=== PATIENT | male | born 1950 | race Caucasian/White ===

== ENCOUNTER 2017-09-16 21:48 | Emergency (ER) | payer MEDICARE, MEDICAID ==
[~2017-09-16] VITALS: Ht 167.6 cm; Wt 76.2 kg
[~2017-09-16 21:48] MED LIST: ARIP5TAB20 PO; ATOR40TA71 PO; BUSP10TA11 PO; CLOP75TA15 PO; DOCU100C40 PO; FAMO20TA8 PO; FLUT1DIS7 INH; IPRA4AER IH; LISI-600 PO; METF1000 PO; NITR0.4T48 SL; TRAM50TA2 PO; TRAZ-143 PO; UMEC62.5 INH; VENL75CA61 PO
[2017-09-16 21:57] VITALS: BP 178/110
[2017-09-16] MEDS ORDERED: LORazepam 1 MG tablet PO ONE (23:15)
[2017-09-16 23:30] LABS: BASOPHILS # (AUTO) 0.1 X10'3 (0-0.2); BASOPHILS % (AUTO) 0.4 % (0-1); EOSINOPHILS # (AUTO) 0.2 X10'3 (0-0.9); EOSINOPHILS % (AUTO) 1.6 % (0-6); HEMATOCRIT 47.6 % (42.0-52.0); HEMOGLOBIN 16.1 g/dl (14.0-17.9); LYMPHOCYTES # (AUTO) 1.8 X10'3 (1.1-4.8); LYMPHOCYTES % (AUTO) 12.7 % (21-51); MEAN CORPUSCULAR HEMOGLOBIN 30.1 PG (27.0-31.0); MEAN CORPUSCULAR HGB CONC 33.8 % (33.0-36.5); MEAN CORPUSCULAR VOLUME 89.1 FL (78-98); MEAN PLATELET VOLUME 7.8 FL (7.4-10.4); MONOCYTES # (AUTO) 1.4 X10'3 (0-0.9); MONOCYTES % (AUTO) 9.9 % (2-12); NEUTROPHILS # (AUTO) 10.8 X10'3 (1.8-7.7); NEUTROPHILS % (AUTO) 75.4 % (42-75); PLATELET COUNT 350 X10'3 (140-440); RED BLOOD COUNT 5.34 X10'6 (4.70-6.10); RED CELL DISTRIBUTION WIDTH 14.1 % (11.5-14.5); WHITE BLOOD COUNT 14.3 X10'3 (4.5-11.0)
[2017-09-16 23:31] LABS: CLARITY,URINE Clear (Clear); COLOR,URINE Yellow (Yellow); GLUCOSE, URINE Negative (Neg); KETONES,URINE Negative (Neg); LEUKOCYTE ESTERASE ,URINE Trace (Neg); NITRITES, URINE Negative (Neg); OCCULT BLOOD,URINE Negative (Neg); PH,URINE 5.5 (4.8-8.0); PROTEIN,URINE 100 mg/dl (Neg)
[2017-09-16 23:33] LABS: UA COLLECTION TYPE CLN CATCH MIDSTREAM
[2017-09-16 23:44] LABS: BACTERIA,URINE FEW /HPF (Neg); RBC,URINE 0-2 /HPF (0-2); SQUAMOUS EPITHELIAL CELL,UR FEW /LPF (FEW); WBC,URINE 0-4 /HPF (0-4)
[2017-09-16 23:45] LABS: URINE AMPHETAMINE SCREEN POSITIVE (Neg); URINE BARBITUATE SCREEN NEGATIVE (Neg); URINE BENZODIAZEPINES SCREEN NEGATIVE (Neg); URINE CANNABINOID SCREEN POSITIVE (Neg); URINE COCAINE SCREEN NEGATIVE (Neg); URINE METHADONE SCREEN NEGATIVE (Neg); URINE OPIATE SCREEN NEGATIVE (Neg); URINE PHENCYCLIDINE SCREEN NEGATIVE (Neg)
[2017-09-16 23:45] LABS: ALANINE AMINOTRANSFERASE 24 U/L (12-78); ALBUMIN 4.3 G/DL (3.4-5.0); ALKALINE PHOSPHATASE 50 IU/L (46-116); ANION GAP 12 (8-16); ASPARTATE AMINO TRANSFERASE 22 U/L (10-37); BILIRUBIN,TOTAL 0.9 MG/DL (0.1-1.0); BLOOD UREA NITROGEN 12 MG/DL (7-18); CALCIUM 9.9 MG/DL (8.5-10.1); CHLORIDE 101 MMOL/L (99-107); GLUCOSE 138 MG/DL (70-104); POTASSIUM 3.8 MMOL/L (3.5-5.1); SODIUM 139 MMOL/L (135-145); TOTAL CARBON DIOXIDE 25.7 MMOL/L (24-32); TOTAL PROTEIN 8.6 G/DL (6.4-8.2); eGFR 75 ML/MIN
[2017-09-17 00:04] LABS: ACETAMINOPHEN < 2.0 UG/ML (10-30); ETHANOL < 0.010 GM/DL (0.0-0.010)
== END 2017-09-17 03:35 | disposition home or self-care (01) ==
LOC: ER 21:48
DX: F41.9 Anxiety disorder, unspecified (principal); F32.9 Major depressive disorder, single episode, unspecified; E11.42 Type 2 diabetes mellitus with diabetic polyneuropathy; I10 Essential (primary) hypertension; I25.10 Atherosclerotic heart disease of native coronary artery without angina pectoris; E78.00 Pure hypercholesterolemia, unspecified; I25.2 Old myocardial infarction; J44.9 Chronic obstructive pulmonary disease, unspecified; G89.29 Other chronic pain; M19.90 Unspecified osteoarthritis, unspecified site; Z98.61 Coronary angioplasty status; Z90.49 Acquired absence of other specified parts of digestive tract; Z86.14 Personal history of Methicillin resistant Staphylococcus aureus infection; Z60.2 Problems related to living alone; Z88.5 Allergy status to narcotic agent; Z88.0 Allergy status to penicillin; Z88.8 Allergy status to other drugs, medicaments and biological substances; Z79.84 Long term (current) use of oral hypoglycemic drugs; Z79.899 Other long term (current) drug therapy
CPT/HCPCS: 36415; 80053; 80305; 80320; 80329; 81001; 84443; 85025; 99284

== ENCOUNTER 2018-03-08 23:54 | Emergency (ER) | payer MEDICARE, OTHER ==
[~2018-03-08] VITALS: Ht 167.6 cm; Wt 97.3 kg
[~2018-03-08 23:54] MED LIST changes: -TRAZ-143 PO; +TRAZ-218 PO
[2018-03-09 00:55] VITALS: BP 124/101
[2018-03-09 01:03] LABS: BASOPHILS # (AUTO) 0.1 X10'3 (0-0.2); BASOPHILS % (AUTO) 0.9 % (0-1); EOSINOPHILS # (AUTO) 0.2 X10'3 (0-0.9); HEMATOCRIT 46.6 % (42.0-52.0); HEMOGLOBIN 15.7 g/dl (14.0-17.9); LYMPHOCYTES # (AUTO) 1.9 X10'3 (1.1-4.8); LYMPHOCYTES % (AUTO) 19.2 % (21-51); MEAN CORPUSCULAR HEMOGLOBIN 30.4 PG (27.0-31.0); MEAN CORPUSCULAR HGB CONC 33.7 % (33.0-36.5); MEAN CORPUSCULAR VOLUME 90.2 FL (78-98); MONOCYTES # (AUTO) 0.9 X10'3 (0-0.9); MONOCYTES % (AUTO) 9.4 % (2-12); NEUTROPHILS # (AUTO) 6.8 X10'3 (1.8-7.7); NEUTROPHILS % (AUTO) 68.5 % (42-75); PLATELET COUNT 364 X10'3 (140-440); RED BLOOD COUNT 5.17 X10'6 (4.70-6.10); RED CELL DISTRIBUTION WIDTH 12.3 % (11.5-14.5); WHITE BLOOD COUNT 9.9 X10'3 (4.5-11.0)
[2018-03-09 01:12] LABS: ALANINE AMINOTRANSFERASE 20 U/L (12-78); ALBUMIN 3.7 G/DL (3.4-5.0); ALBUMIN/GLOBULIN RATIO 0.9 (1.1-1.5); ALKALINE PHOSPHATASE 49 IU/L (46-116); ANION GAP 10 (8-16); ASPARTATE AMINO TRANSFERASE 13 U/L (10-37); BILIRUBIN,TOTAL 0.6 MG/DL (0.1-1.0); BLOOD UREA NITROGEN 18 MG/DL (7-18); BUN/CREATININE RATIO 19.8 (5.4-32.0); CHLORIDE 99 MMOL/L (99-107); CREATININE 0.91 MG/DL (0.60-1.10); GLUCOSE 213 MG/DL (70-104); POTASSIUM 3.8 MMOL/L (3.5-5.1); SODIUM 135 MMOL/L (135-145); TOTAL CARBON DIOXIDE 25.8 MMOL/L (24-32); TOTAL PROTEIN 7.9 G/DL (6.4-8.2); eGFR 83 ML/MIN
[2018-03-09 01:18] LABS: MAGNESIUM 1.7 MG/DL (1.5-2.4)
[2018-03-09 01:26] LABS: CALCIUM 9.5 MG/DL (8.5-10.1)
== END 2018-03-09 02:18 | disposition home or self-care (01) ==
LOC: ER 23:54
DX: R55 Syncope and collapse (principal); E11.42 Type 2 diabetes mellitus with diabetic polyneuropathy; I25.10 Atherosclerotic heart disease of native coronary artery without angina pectoris; E78.00 Pure hypercholesterolemia, unspecified; I10 Essential (primary) hypertension; I25.2 Old myocardial infarction; J44.9 Chronic obstructive pulmonary disease, unspecified; M19.90 Unspecified osteoarthritis, unspecified site; G89.29 Other chronic pain; Z98.61 Coronary angioplasty status; Z90.49 Acquired absence of other specified parts of digestive tract; Z98.890 Other specified postprocedural states; Z60.2 Problems related to living alone; Z88.0 Allergy status to penicillin; Z88.5 Allergy status to narcotic agent; Z88.8 Allergy status to other drugs, medicaments and biological substances; Z79.01 Long term (current) use of anticoagulants; Z79.899 Other long term (current) drug therapy
CPT/HCPCS: 36415; 71045; 80053; 82948; 83735; 83880; 84484; 85025; 93005; 99285

== ENCOUNTER 2018-12-01 23:57 | Emergency (ER) | payer MEDICAID, OTHER ==
[~2018-12-01] VITALS: Ht 167.6 cm; Wt 90.9 kg
[~2018-12-01 23:57] MED LIST changes: -ARIP5TAB20 PO; +ARIP5TAB60 PO; -TRAZ-218 PO; +TRAZ-251 PO
--- NOTE | 2018-12-02 00:18 | NUR ---
Patient was placed on NIBP and pulse ox and patient's heart rate noted to be in the 150s. Patient relates this to being anxious and in the ER and states, "this has always happened to me since Nam." Patient placed on 5 lead and he is in the 110s sinus tachycardia. Patient resting comfortably in bed with no signs of distress. Denies head, neck, or back pain and only complains of 2 abrasions to his right elbow and right knee.
[2018-12-02 01:51] VITALS: BP 150/98
== END 2018-12-02 01:52 | disposition home or self-care (01) ==
LOC: ER 23:58
DX: S50.311A Abrasion of right elbow, initial encounter (principal); S80.211A Abrasion, right knee, initial encounter; G31.89 Other specified degenerative diseases of nervous system; E11.42 Type 2 diabetes mellitus with diabetic polyneuropathy; I25.10 Atherosclerotic heart disease of native coronary artery without angina pectoris; E78.00 Pure hypercholesterolemia, unspecified; I10 Essential (primary) hypertension; I25.2 Old myocardial infarction; J44.9 Chronic obstructive pulmonary disease, unspecified; M19.90 Unspecified osteoarthritis, unspecified site; G89.29 Other chronic pain; F41.9 Anxiety disorder, unspecified; F32.9 Major depressive disorder, single episode, unspecified; Z86.14 Personal history of Methicillin resistant Staphylococcus aureus infection; Z98.61 Coronary angioplasty status; Z90.49 Acquired absence of other specified parts of digestive tract; Z98.890 Other specified postprocedural states; Z60.2 Problems related to living alone; Z88.0 Allergy status to penicillin; Z88.5 Allergy status to narcotic agent; Z88.8 Allergy status to other drugs, medicaments and biological substances; Z79.899 Other long term (current) drug therapy; W18.49XA Other slipping, tripping and stumbling without falling, initial encounter; Y93.01 Activity, walking, marching and hiking; Y92.89 Other specified places as the place of occurrence of the external cause; Y99.8 Other external cause status
CPT/HCPCS: 70450; 99284

== ENCOUNTER 2018-12-26 13:22 | Inpatient (IN) | payer MEDICARE, MEDICAID ==
[~2018-12-26] VITALS: Ht 167.6 cm; Wt 90.5 kg
[2018-12-26] MEDS ORDERED: normal saline 1000ml 1,000 ML IV ONE (13:46)
[2018-12-26] MEDS ORDERED: aspirin 81mg tab.chew PO ONE (13:50)
--- NOTE | 2018-12-26 13:54 | NUR ---
I ASKED DR PEARSON ABOUT ORDERING A HEAD CT AND HE SAID "NO, WHY WOULD I".
[2018-12-26 14:19] LABS: BASOPHILS % (AUTO) 0.4 % (0-1); EOSINOPHILS % (AUTO) 0.5 % (0-6); HEMATOCRIT 45.8 % (42.0-52.0); HEMOGLOBIN 15.5 g/dl (14.0-17.9); LYMPHOCYTES % (AUTO) 10.2 % (21-51); MEAN CORPUSCULAR HEMOGLOBIN 30.6 PG (27.0-31.0); MEAN CORPUSCULAR HGB CONC 33.8 g/dL (33.0-36.5); MEAN CORPUSCULAR VOLUME 90.4 FL (78-98); MEAN PLATELET VOLUME 7.1 FL (7.4-10.4); MONOCYTES # (AUTO) 0.9 X10'3 (0-0.9); MONOCYTES % (AUTO) 8.8 % (2-12); NEUTROPHILS % (AUTO) 80.1 % (42-75); PLATELET COUNT 306 X10'3 (140-440); RED BLOOD COUNT 5.06 X10'6 (4.70-6.10); RED CELL DISTRIBUTION WIDTH 13.2 % (11.5-14.5)
--- NOTE | 2018-12-26 14:25 | NUR ---
Unable to complete orthostatic vitals as pt became pre-syncopal upon sitting at side of bed. Layed pt back in [facility]. Will inform DAVION.
[2018-12-26 14:39] LABS: ALANINE AMINOTRANSFERASE 19 U/L (12-78); ALBUMIN 3.2 G/DL (3.4-5.0); ALBUMIN/GLOBULIN RATIO 0.7 (1.1-1.5); ALKALINE PHOSPHATASE 78 IU/L (46-116); ANION GAP 12 (8-16); ASPARTATE AMINO TRANSFERASE 12 U/L (10-37); BILIRUBIN,TOTAL 0.5 MG/DL (0.1-1.0); BLOOD UREA NITROGEN 18 MG/DL (7-18); BUN/CREATININE RATIO 19.8 (5.4-32.0); CALCIUM 8.9 MG/DL (8.5-10.1); CHLORIDE 99 MMOL/L (99-107); CREATININE 0.91 MG/DL (0.60-1.10); GLUCOSE 326 MG/DL (70-104); POTASSIUM 4.3 MMOL/L (3.5-5.1); SODIUM 134 MMOL/L (135-145); TOTAL PROTEIN 7.8 G/DL (6.4-8.2); eGFR 83 ML/MIN
[2018-12-26 14:39] LABS: CLARITY,URINE CLEAR (Clear); COLOR,URINE YELLOW (Yellow); GLUCOSE, URINE >=1000 mg/dl (Neg); KETONES,URINE NEGATIVE (Neg); LEUKOCYTE ESTERASE ,URINE NEGATIVE (Neg); NITRITES, URINE NEGATIVE (Neg); OCCULT BLOOD,URINE NEGATIVE (Neg); PH,URINE 6.5 (4.8-8.0); PROTEIN,URINE NEGATIVE (Neg); UROBILINOGEN,URINE 0.2 E.U/dL (0.2-1.0)
[2018-12-26 14:40] LABS: UA COLLECTION TYPE VOIDED
[2018-12-26 14:42] LABS: PARTIAL THROMBOPLASTIN TIME 28 SECONDS (22-32)
[2018-12-26 14:43] LABS: ETHANOL < 0.010 GM/DL (0.0-0.010); MAGNESIUM 1.9 MG/DL (1.5-2.4)
[2018-12-26 14:49] LABS: BACTERIA,URINE NONE SEEN /HPF (Neg); MUCUS STRANDS NONE SEEN /LPF (Neg); RBC,URINE NONE SEEN /HPF (0-2); SQUAMOUS EPITHELIAL CELL,UR NONE SEEN /LPF (FEW); TRANSITIONAL EPI CELLS,URINE FEW /HPF; WBC,URINE 0-4 /HPF (0-4)
--- NOTE | 2018-12-26 14:56 | NUR ---
ECHO IS AT BEDSIDE
[2018-12-26] MEDS ORDERED: HYDROcodone/acetaminophen 10/325mg tab PO ONE (15:00)
[2018-12-26] MEDS ORDERED: morphine 4 MG/ML inj SYRINge IV ONE (15:00)
--- NOTE | 2018-12-26 16:30 | NUR ---
carotid us completed
[2018-12-26] MEDS ORDERED: MULT-933 PO (16:46)
[2018-12-26] MEDS ORDERED: ASPI81TA52 PO (16:46)
[2018-12-26] MEDS ORDERED: CHOL100046 PO (16:46)
[2018-12-26] MEDS ORDERED: RANI-648 PO (16:46)
[2018-12-26] MEDS ORDERED: INSU100V9 SQ (16:46)
[2018-12-26] MEDS ORDERED: SERT100T10 PO (16:46)
[2018-12-26] MEDS ORDERED: FLUT12AE9 IH (16:46)
[2018-12-26] MEDS ORDERED: METF-795 PO (16:48)
[2018-12-26] MEDS ORDERED: traMADol 50MG tablet PO PRN (17:15)
[2018-12-26] MEDS ORDERED: ondansetron/PF 4mg/2ml inj IV PRN (17:20)
[2018-12-26] MEDS ORDERED: magnesium hydroxide 30ml (MOM) UD suspension PO PRN (17:20)
[2018-12-26] MEDS ORDERED: mag hydrox/Alum hydrox/simeth 30ml oral suspension PO PRN (17:20)
[2018-12-26] MEDS ORDERED: acetaminophen 325mg tablet PO PRN ×2 (17:20→21:20)
--- NOTE | 2018-12-26 17:22 | NUR ---
bg 243
[2018-12-26] MEDS: normal saline 1000ml 1,000 ML IV SCH (17:46)
[2018-12-26] MEDS ORDERED: insulin Lispro (HumaLOG) vial - multi-dose SQ ONE (19:15)
--- NOTE | 2018-12-26 19:20 | NUR ---
I have received report from JM Vargas in ED and had the opportunity to ask questions and will assume patient care when pt arrives to unit.
[2018-12-26 19:45] VITALS: BP 173/86
--- NOTE | 2018-12-26 19:45 | NUR ---
Patient arrived to room via gurney from ED. Patient is alert and oriented, VSS
[2018-12-26] MEDS ORDERED: METFORMIN 500 MG PO SCH (20:00)
[2018-12-26 20:20] LABS: HEMOGLOBIN A1C 11.1 % (4.5-6.2)
[2018-12-26] MEDS ORDERED: dextrose ORAL solution 15 GM/59 ML bottle PO PRN ×2 (21:15)
[2018-12-26] MEDS ORDERED: glucagon, human recombinant 1mg kit SUBCUT PRN (21:15)
[2018-12-26] MEDS ORDERED: MESSAGE TO PHARMACY PO ONE (21:15)
[2018-12-26] MEDS ORDERED: dextrose 50%-water 50ml dispensing syringe IV PRN ×2 (21:15)
[2018-12-26] MEDS: famotidine 20mg tablet PO SCH (21:23)
[2018-12-26] MEDS: sertraline 50mg tablet PO SCH (21:23)
[2018-12-26] MEDS: busPIRone 5mg tablet PO SCH (21:23)
[2018-12-26] MEDS: ipratropium 0.5 MG/2.5ML nebule IH SCH (21:42)
[2018-12-26] MEDS: budesonide 0.5mg/2ml UD nebule IH SCH (21:42)
[2018-12-26] MEDS: insulin Lispro (HumaLOG) vial - multi-dose SQ SCH (21:49)
[2018-12-26] MEDS: insulin glargine (Lantus) pen - multi-dose SQ SCH (21:50)
[2018-12-26] MEDS: HYDROcodone/acetaminophen 10/325mg tab PO PRN (21:53)
[2018-12-26 22:00] VITALS: BP_SYST 161; BP_SYST 166; BP_SYST 175; BP_DIAS 105; BP_DIAS 110; BP_DIAS 91
[2018-12-27] MEDS: HYDROcodone/acetaminophen 10/325mg tab PO PRN ×6 (01:51→21:51)
[2018-12-27] MEDS: ipratropium 0.5 MG/2.5ML nebule IH SCH ×4 (02:48→20:29)
[2018-12-27] MEDS: normal saline 1000ml 1,000 ML IV SCH (03:11)
[2018-12-27 06:00] VITALS: BP 151/100
--- NOTE | 2018-12-27 06:00 | NUR ---
Patient in room ORTHO 4012. I have received report from Marcelo ONEAL and had the opportunity to ask questions and assume patient care.
--- NOTE | 2018-12-27 06:12 | NUR ---
Problems reprioritized. Patient report given, questions answered & plan of care reviewed with JM Meehan.
[2018-12-27 06:41] LABS: BASOPHILS % (AUTO) 0.4 % (0-1); EOSINOPHILS # (AUTO) 0.1 X10'3 (0-0.9); EOSINOPHILS % (AUTO) 1.5 % (0-6); HEMATOCRIT 42.4 % (42.0-52.0); HEMOGLOBIN 14.4 g/dl (14.0-17.9); LYMPHOCYTES # (AUTO) 1.7 X10'3 (1.1-4.8); LYMPHOCYTES % (AUTO) 19.2 % (21-51); MEAN CORPUSCULAR HEMOGLOBIN 30.9 PG (27.0-31.0); MEAN CORPUSCULAR HGB CONC 33.9 g/dL (33.0-36.5); MEAN CORPUSCULAR VOLUME 91.3 FL (78-98); MEAN PLATELET VOLUME 7.7 FL (7.4-10.4); MONOCYTES % (AUTO) 11.6 % (2-12); NEUTROPHILS # (AUTO) 5.8 X10'3 (1.8-7.7); NEUTROPHILS % (AUTO) 67.3 % (42-75); PLATELET COUNT 301 X10'3 (140-440); RED BLOOD COUNT 4.64 X10'6 (4.70-6.10); RED CELL DISTRIBUTION WIDTH 13.2 % (11.5-14.5); WHITE BLOOD COUNT 8.6 X10'3 (4.5-11.0)
[2018-12-27 06:49] LABS: ALBUMIN 2.8 G/DL (3.4-5.0); ANION GAP 9 (8-16); BLOOD UREA NITROGEN 12 MG/DL (7-18); BUN/CREATININE RATIO 15.2 (5.4-32.0); CALCIUM 8.2 MG/DL (8.5-10.1); CHLORIDE 101 MMOL/L (99-107); CREATININE 0.79 MG/DL (0.60-1.10); GLUCOSE 243 MG/DL (70-104); POTASSIUM 3.9 MMOL/L (3.5-5.1); SODIUM 134 MMOL/L (135-145); eGFR > 90 ML/MIN
[2018-12-27] MEDS: budesonide 0.5mg/2ml UD nebule IH SCH ×2 (07:55→20:29)
[2018-12-27 08:00] VITALS: BP_SYST 146; BP_SYST 147; BP_SYST 156; BP_DIAS 64; BP_DIAS 65; BP_DIAS 70
[2018-12-27] MEDS: lisinopril 20mg tablet PO SCH (08:32)
[2018-12-27] MEDS: busPIRone 5mg tablet PO SCH ×3 (08:33→20:46)
[2018-12-27] MEDS: vitamin D (cholecalciferol) 1,000 unit tablet PO SCH (08:33)
[2018-12-27] MEDS: clopidogrel 75mg tablet PO SCH (08:33)
[2018-12-27] MEDS: famotidine 20mg tablet PO SCH ×2 (08:33→20:46)
[2018-12-27] MEDS: aspirin 81mg tablet.DR PO SCH (08:33)
[2018-12-27] MEDS: atorvastatin 20mg tablet PO SCH (08:33)
[2018-12-27] MEDS: multivitamins, therapeutics tablet PO SCH (08:33)
[2018-12-27] MEDS: insulin Lispro (HumaLOG) vial - multi-dose SQ SCH ×3 (08:48→19:14)
[2018-12-27 10:00] VITALS: BP 147/64
--- NOTE | 2018-12-27 16:34 | NUR ---
DM consult, A1c 11.1, h/o DM, needs written DM education handout with verbal review and referral to outpatient DM education class on sunday. great appetite, eating 50-75%, requesting double protein, d/w dietary thats its OK to send. Presented to ED after syncopal episode, reports intermittent nausea and vomiting, loose bowels. Recommend: 1. continue carb controlled diet 2. double protein with meals per patient request 3. wt per rx Addendum: 12/27/18 at [address] Amended: Links added.
[2018-12-27 18:00] VITALS: BP 111/58
--- NOTE | 2018-12-27 18:30 | NUR ---
Patient in room ORTHO 4012. I have received report from JM Meehan and had the opportunity to ask questions and assume patient care.
--- NOTE | 2018-12-27 18:35 | NUR ---
PAGER ID: [phone] MESSAGE: RE: [id number] Mike Mtz. Patient c/o chest pain. Did 12 lead EKG. Do you want to come look at it? States 2 of 10 pain. Call Heidi or Shefali [phone]
--- NOTE | 2018-12-27 18:40 | NUR ---
Dr. Ivy called back but disconnected by the time it was answered.
--- NOTE | 2018-12-27 18:47 | NUR ---
Problems reprioritized. Patient report given, questions answered & plan of care reviewed with Heidi ONEAL.
[2018-12-27 20:00] VITALS: BP_SYST 131; BP_SYST 137; BP_SYST 143; BP_DIAS 67; BP_DIAS 80; BP_DIAS 82
[2018-12-27] MEDS: sertraline 50mg tablet PO SCH (20:46)
[2018-12-27] MEDS: insulin glargine (Lantus) pen - multi-dose SQ SCH (20:50)
[2018-12-27 22:00] VITALS: BP 131/67
[2018-12-28] VITALS (7 sets, daily range): BP systolic 105–172; BP diastolic 49–100
[2018-12-28] MEDS: HYDROcodone/acetaminophen 10/325mg tab PO PRN ×5 (02:31→19:58)
[2018-12-28] MEDS: ipratropium 0.5 MG/2.5ML nebule IH SCH ×4 (02:52→20:30)
--- NOTE | 2018-12-28 06:57 | NUR ---
Problems reprioritized. Patient report given, questions answered & plan of care reviewed with JM Corcoran.
[2018-12-28 07:17] LABS: BASOPHILS # (AUTO) 0.1 X10'3 (0-0.2); EOSINOPHILS # (AUTO) 0.1 X10'3 (0-0.9); EOSINOPHILS % (AUTO) 1.3 % (0-6); HEMATOCRIT 44.4 % (42.0-52.0); HEMOGLOBIN 15.2 g/dl (14.0-17.9); LYMPHOCYTES # (AUTO) 1.8 X10'3 (1.1-4.8); MEAN CORPUSCULAR HEMOGLOBIN 30.9 PG (27.0-31.0); MEAN CORPUSCULAR HGB CONC 34.2 g/dL (33.0-36.5); MEAN CORPUSCULAR VOLUME 90.3 FL (78-98); MEAN PLATELET VOLUME 7.1 FL (7.4-10.4); MONOCYTES % (AUTO) 9.3 % (2-12); NEUTROPHILS # (AUTO) 7.4 X10'3 (1.8-7.7); NEUTROPHILS % (AUTO) 71.4 % (42-75); PLATELET COUNT 323 X10'3 (140-440); RED BLOOD COUNT 4.92 X10'6 (4.70-6.10); RED CELL DISTRIBUTION WIDTH 12.9 % (11.5-14.5); WHITE BLOOD COUNT 10.4 X10'3 (4.5-11.0)
[2018-12-28 07:37] LABS: ALBUMIN 2.9 G/DL (3.4-5.0); ANION GAP 11 (8-16); BLOOD UREA NITROGEN 20 MG/DL (7-18); CHLORIDE 101 MMOL/L (99-107); CREATININE 0.87 MG/DL (0.60-1.10); GLUCOSE 243 MG/DL (70-104); POTASSIUM 4.2 MMOL/L (3.5-5.1); SODIUM 135 MMOL/L (135-145); TOTAL CARBON DIOXIDE 22.6 MMOL/L (24-32); eGFR 87 ML/MIN
[2018-12-28] MEDS: multivitamins, therapeutics tablet PO SCH (07:48)
[2018-12-28] MEDS: vitamin D (cholecalciferol) 1,000 unit tablet PO SCH (07:48)
[2018-12-28] MEDS: busPIRone 5mg tablet PO SCH ×3 (07:49→19:59)
[2018-12-28] MEDS: clopidogrel 75mg tablet PO SCH (07:49)
[2018-12-28] MEDS: lisinopril 20mg tablet PO SCH (07:49)
[2018-12-28] MEDS: atorvastatin 20mg tablet PO SCH (07:49)
[2018-12-28] MEDS: aspirin 81mg tablet.DR PO SCH (07:49)
[2018-12-28] MEDS: famotidine 20mg tablet PO SCH ×2 (07:49→19:58)
[2018-12-28] MEDS: insulin Lispro (HumaLOG) vial - multi-dose SQ SCH ×3 (09:52→19:56)
[2018-12-28] MEDS: budesonide 0.5mg/2ml UD nebule IH SCH ×2 (09:58→20:30)
--- NOTE | 2018-12-28 18:00 | NUR ---
Patient in room ORTHO 4012. I have received report from JM Corcoran and had the opportunity to ask questions and assume patient care.
[2018-12-28] MEDS: sertraline 50mg tablet PO SCH (20:01)
[2018-12-28] MEDS: prazosin 1mg capsule PO SCH (20:01)
--- NOTE | 2018-12-28 22:00 | NUR ---
Called Dr. Doran regarding night time insulin coverage. Per Dr. Doran, do not cover night time regular insulin since pt received 16 extra units earlier. Gave lantus per order
[2018-12-28] MEDS: insulin glargine (Lantus) pen - multi-dose SQ SCH (22:06)
[2018-12-29] MEDS: ipratropium 0.5 MG/2.5ML nebule IH SCH ×4 (01:30→20:49)
[2018-12-29] MEDS: HYDROcodone/acetaminophen 10/325mg tab PO PRN ×5 (05:24→22:47)
[2018-12-29 06:00] VITALS: BP 119/46
--- NOTE | 2018-12-29 06:00 | NUR ---
Problems reprioritized. Patient report given, questions answered & plan of care reviewed with JM House.
--- NOTE | 2018-12-29 06:23 | NUR ---
received report from luis fernando
[2018-12-29 06:56] LABS: BASOPHILS % (AUTO) 0.4 % (0-1); EOSINOPHILS # (AUTO) 0.1 X10'3 (0-0.9); EOSINOPHILS % (AUTO) 1.5 % (0-6); HEMATOCRIT 39.8 % (42.0-52.0); HEMOGLOBIN 13.5 g/dl (14.0-17.9); LYMPHOCYTES # (AUTO) 1.4 X10'3 (1.1-4.8); LYMPHOCYTES % (AUTO) 15.2 % (21-51); MEAN CORPUSCULAR HEMOGLOBIN 30.9 PG (27.0-31.0); MEAN CORPUSCULAR VOLUME 91.1 FL (78-98); MEAN PLATELET VOLUME 7.6 FL (7.4-10.4); MONOCYTES # (AUTO) 0.9 X10'3 (0-0.9); MONOCYTES % (AUTO) 10.2 % (2-12); NEUTROPHILS # (AUTO) 6.6 X10'3 (1.8-7.7); NEUTROPHILS % (AUTO) 72.7 % (42-75); PLATELET COUNT 287 X10'3 (140-440); RED BLOOD COUNT 4.37 X10'6 (4.70-6.10); RED CELL DISTRIBUTION WIDTH 13.3 % (11.5-14.5); WHITE BLOOD COUNT 9.1 X10'3 (4.5-11.0)
[2018-12-29 07:02] LABS: ALBUMIN 2.6 G/DL (3.4-5.0); ANION GAP 10 (8-16); BLOOD UREA NITROGEN 25 MG/DL (7-18); BUN/CREATININE RATIO 31.3 (5.4-32.0); CALCIUM 8.8 MG/DL (8.5-10.1); CHLORIDE 105 MMOL/L (99-107); GLUCOSE 157 MG/DL (70-104); POTASSIUM 3.8 MMOL/L (3.5-5.1); SODIUM 138 MMOL/L (135-145); TOTAL CARBON DIOXIDE 22.7 MMOL/L (24-32); eGFR > 90 ML/MIN
[2018-12-29 08:00] VITALS: BP_SYST 124; BP_SYST 142; BP_DIAS 62; BP_DIAS 76; BP_DIAS 81
[2018-12-29] MEDS: lisinopril 20mg tablet PO SCH (08:00)
--- NOTE | 2018-12-29 08:00 | NUR ---
unable to obtain pts ortho static vs at this time pt has healing scab on right knee, woc not following, therefore charge nurse said no need for photos, knee flotation tender, continue to monitor
[2018-12-29] MEDS: budesonide 0.5mg/2ml UD nebule IH SCH ×2 (08:26→20:49)
[2018-12-29] MEDS: insulin Lispro (HumaLOG) vial - multi-dose SQ SCH ×3 (08:31→19:31)
[2018-12-29] MEDS: famotidine 20mg tablet PO SCH ×2 (08:34→19:33)
[2018-12-29] MEDS: aspirin 81mg tablet.DR PO SCH (08:35)
[2018-12-29] MEDS: atorvastatin 20mg tablet PO SCH (08:35)
[2018-12-29] MEDS: multivitamins, therapeutics tablet PO SCH (08:36)
[2018-12-29] MEDS: vitamin D (cholecalciferol) 1,000 unit tablet PO SCH (08:36)
[2018-12-29] MEDS: clopidogrel 75mg tablet PO SCH (08:36)
[2018-12-29] MEDS: busPIRone 5mg tablet PO SCH ×3 (08:36→22:01)
--- NOTE | 2018-12-29 16:50 | NUR ---
F/u: Pt seen by RD for written/verbal DM ed w/ RD contact information provided. Pt reports knowing he was not following proper DM diet at home and is aware of CDE course. Pt perseverates on other issues outside DM and repeats same story; passive to further DM ed. Pt has no teeth; soft to chew foods, cottage cheese w/ fruit at breakfast, cream of wheat w/ splenda and margarine all breakfasts, dislikes strawberries and harder fruits. Dietary notified of preferences. Will continue to monitor. Addendum: 12/29/18 at [address] Amended: Links added.
[2018-12-29 18:00] VITALS: BP 164/90
--- NOTE | 2018-12-29 18:45 | NUR ---
Patient in room ORTHO 4012. I have received report from Lacy ONEAL and had the opportunity to ask questions and assume patient care.
--- NOTE | 2018-12-29 18:47 | NUR ---
gave report to luis jimenes
[2018-12-29] MEDS: prazosin 1mg capsule PO SCH (21:00)
[2018-12-29 22:00] VITALS: BP 134/73
[2018-12-29] MEDS: insulin glargine (Lantus) pen - multi-dose SQ SCH (22:00)
[2018-12-29] MEDS: sertraline 50mg tablet PO SCH (22:01)
--- NOTE | 2018-12-29 22:46 | NUR ---
I was walking by the pt's room and saw him standing at bedside on his own and he was stable on his feet at this time; no signs of syncope noted.
[2018-12-30] MEDS: ipratropium 0.5 MG/2.5ML nebule IH SCH ×4 (02:45→20:09)
[2018-12-30] MEDS: HYDROcodone/acetaminophen 10/325mg tab PO PRN ×6 (02:55→23:03)
[2018-12-30 06:00] VITALS: BP 150/91
[2018-12-30 06:04] VITALS: BP_SYST 141; BP_SYST 143; BP_SYST 154; BP_DIAS 106; BP_DIAS 94; BP_DIAS 98
--- NOTE | 2018-12-30 06:16 | NUR ---
Problems reprioritized. Patient report given, questions answered & plan of care reviewed with Lacy ONEAL.
--- NOTE | 2018-12-30 06:26 | NUR ---
received report from luis jimenes
[2018-12-30 06:56] LABS: BASOPHILS % (AUTO) 0.5 % (0-1); EOSINOPHILS # (AUTO) 0.2 X10'3 (0-0.9); EOSINOPHILS % (AUTO) 1.9 % (0-6); HEMATOCRIT 41.8 % (42.0-52.0); HEMOGLOBIN 14.2 g/dl (14.0-17.9); LYMPHOCYTES # (AUTO) 1.8 X10'3 (1.1-4.8); LYMPHOCYTES % (AUTO) 20.8 % (21-51); MEAN CORPUSCULAR HEMOGLOBIN 30.9 PG (27.0-31.0); MEAN CORPUSCULAR HGB CONC 34.1 g/dL (33.0-36.5); MEAN CORPUSCULAR VOLUME 90.5 FL (78-98); MEAN PLATELET VOLUME 7.3 FL (7.4-10.4); MONOCYTES # (AUTO) 0.9 X10'3 (0-0.9); MONOCYTES % (AUTO) 9.8 % (2-12); NEUTROPHILS # (AUTO) 5.8 X10'3 (1.8-7.7); PLATELET COUNT 329 X10'3 (140-440); RED BLOOD COUNT 4.61 X10'6 (4.70-6.10); WHITE BLOOD COUNT 8.7 X10'3 (4.5-11.0)
[2018-12-30 07:20] LABS: ALBUMIN 2.8 G/DL (3.4-5.0); ANION GAP 10 (8-16); BLOOD UREA NITROGEN 18 MG/DL (7-18); BUN/CREATININE RATIO 23.4 (5.4-32.0); CALCIUM 8.7 MG/DL (8.5-10.1); CHLORIDE 104 MMOL/L (99-107); CREATININE 0.77 MG/DL (0.60-1.10); GLUCOSE 148 MG/DL (70-104); SODIUM 137 MMOL/L (135-145); eGFR > 90 ML/MIN
--- NOTE | 2018-12-30 08:00 | NUR ---
unable to obtain pts ortho static vs at this time
[2018-12-30] MEDS: aspirin 81mg tablet.DR PO SCH (08:05)
[2018-12-30] MEDS: atorvastatin 20mg tablet PO SCH (08:05)
[2018-12-30] MEDS: busPIRone 5mg tablet PO SCH ×3 (08:05→20:20)
[2018-12-30] MEDS: multivitamins, therapeutics tablet PO SCH (08:06)
[2018-12-30] MEDS: clopidogrel 75mg tablet PO SCH (08:06)
[2018-12-30] MEDS: famotidine 20mg tablet PO SCH ×2 (08:06→19:06)
[2018-12-30] MEDS: vitamin D (cholecalciferol) 1,000 unit tablet PO SCH (08:08)
[2018-12-30] MEDS: lisinopril 20mg tablet PO SCH (08:08)
[2018-12-30] MEDS: insulin Lispro (HumaLOG) vial - multi-dose SQ SCH ×3 (09:06→18:48)
[2018-12-30] MEDS: budesonide 0.5mg/2ml UD nebule IH SCH ×2 (09:07→20:09)
[2018-12-30 10:00] VITALS: BP 126/74
[2018-12-30 12:27] VITALS: BP 124/53
[2018-12-30 18:00] VITALS: BP 126/76
--- NOTE | 2018-12-30 18:00 | NUR ---
gave report to luis jimenes
[2018-12-30] MEDS: sertraline 50mg tablet PO SCH (20:20)
[2018-12-30] MEDS: prazosin 1mg capsule PO SCH (20:21)
[2018-12-30 21:00] VITALS: BP_SYST 123; BP_SYST 139; BP_SYST 150; BP_DIAS 69; BP_DIAS 79; BP_DIAS 89
[2018-12-30] MEDS: insulin glargine (Lantus) pen - multi-dose SQ SCH (21:10)
[2018-12-31] MEDS: ipratropium 0.5 MG/2.5ML nebule IH SCH ×5 (02:41→21:08)
[2018-12-31] MEDS: HYDROcodone/acetaminophen 10/325mg tab PO PRN ×5 (03:04→19:43)
[2018-12-31 05:00] VITALS: BP 131/75
[2018-12-31 06:04] LABS: BASOPHILS % (AUTO) 0.5 % (0-1); EOSINOPHILS # (AUTO) 0.1 X10'3 (0-0.9); EOSINOPHILS % (AUTO) 1.7 % (0-6); HEMATOCRIT 40.9 % (42.0-52.0); HEMOGLOBIN 13.9 g/dl (14.0-17.9); LYMPHOCYTES # (AUTO) 1.5 X10'3 (1.1-4.8); LYMPHOCYTES % (AUTO) 17.5 % (21-51); MEAN CORPUSCULAR HEMOGLOBIN 31.2 PG (27.0-31.0); MEAN CORPUSCULAR HGB CONC 33.9 g/dL (33.0-36.5); MEAN PLATELET VOLUME 7.5 FL (7.4-10.4); MONOCYTES % (AUTO) 11.6 % (2-12); NEUTROPHILS # (AUTO) 5.9 X10'3 (1.8-7.7); NEUTROPHILS % (AUTO) 68.7 % (42-75); PLATELET COUNT 322 X10'3 (140-440); RED BLOOD COUNT 4.45 X10'6 (4.70-6.10); RED CELL DISTRIBUTION WIDTH 13.3 % (11.5-14.5); WHITE BLOOD COUNT 8.6 X10'3 (4.5-11.0)
[2018-12-31 06:17] LABS: ALBUMIN 2.7 G/DL (3.4-5.0); ANION GAP 8 (8-16); BLOOD UREA NITROGEN 27 MG/DL (7-18); BUN/CREATININE RATIO 35.5 (5.4-32.0); CALCIUM 8.7 MG/DL (8.5-10.1); CHLORIDE 104 MMOL/L (99-107); CREATININE 0.76 MG/DL (0.60-1.10); GLUCOSE 193 MG/DL (70-104); POTASSIUM 4.2 MMOL/L (3.5-5.1); SODIUM 136 MMOL/L (135-145); TOTAL CARBON DIOXIDE 24.3 MMOL/L (24-32); eGFR > 90 ML/MIN
--- NOTE | 2018-12-31 06:23 | NUR ---
Problems reprioritized. Patient report given, questions answered & plan of care reviewed with Mouna ONEAL.
--- NOTE | 2018-12-31 06:46 | NUR ---
Received report from Gabriela ONEAL
[2018-12-31] MEDS: atorvastatin 20mg tablet PO SCH (07:40)
[2018-12-31] MEDS: famotidine 20mg tablet PO SCH ×2 (07:40→19:05)
[2018-12-31] MEDS: vitamin D (cholecalciferol) 1,000 unit tablet PO SCH (07:40)
[2018-12-31] MEDS: busPIRone 5mg tablet PO SCH ×3 (07:40→21:06)
[2018-12-31] MEDS: clopidogrel 75mg tablet PO SCH (07:41)
[2018-12-31] MEDS: lisinopril 20mg tablet PO SCH (07:41)
[2018-12-31] MEDS: multivitamins, therapeutics tablet PO SCH (07:41)
[2018-12-31] MEDS: aspirin 81mg tablet.DR PO SCH (07:41)
[2018-12-31] MEDS: budesonide 0.5mg/2ml UD nebule IH SCH ×2 (08:00→21:08)
[2018-12-31] MEDS: insulin Lispro (HumaLOG) vial - multi-dose SQ SCH ×3 (10:01→19:40)
[2018-12-31] MEDS: ipratropium/albuterol 3ml nebule NEB PRN (14:20)
[2018-12-31 17:00] VITALS: BP 122/77
[2018-12-31] MEDS: prazosin 1mg capsule PO SCH (21:00)
[2018-12-31] MEDS: sertraline 50mg tablet PO SCH (21:05)
[2018-12-31] MEDS: insulin glargine (Lantus) pen - multi-dose SQ SCH (21:12)
--- NOTE | 2018-12-31 21:54 | NUR ---
IV in Left AC since 12/28. Two IV starts attempted for new IV; pt refused further attempts. Pt has been educated on risks of IVs left in for extended lengths of time, as well as warning signs symptoms of infiltration and infection. IV in Left AC has been saline flushed; is patent and asymptomatic. Will leave in arm and continue to monitor.
[2018-12-31 22:00] VITALS: BP 146/68
[2019-01-01] MEDS: HYDROcodone/acetaminophen 10/325mg tab PO PRN ×6 (00:22→22:53)
[2019-01-01 06:00] VITALS: BP 145/88
--- NOTE | 2019-01-01 06:56 | NUR ---
Patient in room ORTHO 4012. I have received report from JM Ochoa and had the opportunity to ask questions and assume patient care. Addendum: 01/01/19 at 0656 by Lauren Chaudhary RN Amended: Links added.
[2019-01-01] MEDS: budesonide 0.5mg/2ml UD nebule IH SCH ×2 (07:27→20:16)
[2019-01-01] MEDS: ipratropium 0.5 MG/2.5ML nebule IH SCH ×2 (07:27→20:16)
--- NOTE | 2019-01-01 08:45 | NUR ---
F/u: patient has MD order for low carb high protein snacks in between meals. D/w RN and dietary which foods are most appropriate and provided written list of foods that can be requested on late tray for in between meals. Addendum: 01/01/19 at [address] Amended: Links added.
[2019-01-01] MEDS: multivitamins, therapeutics tablet PO SCH (08:51)
[2019-01-01] MEDS: aspirin 81mg tablet.DR PO SCH (08:51)
[2019-01-01] MEDS: famotidine 20mg tablet PO SCH ×2 (08:51→21:43)
[2019-01-01] MEDS: busPIRone 5mg tablet PO SCH ×3 (08:58→21:43)
[2019-01-01] MEDS: atorvastatin 20mg tablet PO SCH (08:58)
[2019-01-01] MEDS: lisinopril 20mg tablet PO SCH (08:58)
[2019-01-01] MEDS: vitamin D (cholecalciferol) 1,000 unit tablet PO SCH (08:58)
[2019-01-01] MEDS: clopidogrel 75mg tablet PO SCH (08:58)
[2019-01-01] MEDS: insulin Lispro (HumaLOG) vial - multi-dose SQ SCH ×4 (09:07→21:55)
[2019-01-01 10:00] VITALS: BP 136/82
[2019-01-01] MEDS: ipratropium/albuterol 3ml nebule NEB PRN (14:54)
[2019-01-01 18:00] VITALS: BP 139/80
--- NOTE | 2019-01-01 18:25 | NUR ---
Problems reprioritized. Patient report given, questions answered & plan of care reviewed with JM Menon. Addendum: 01/01/19 at 1826 by Lauren Chaudhary RN Amended: Links added.
[2019-01-01] MEDS: prazosin 1mg capsule PO SCH (21:00)
[2019-01-01] MEDS: sertraline 50mg tablet PO SCH (21:44)
[2019-01-01] MEDS: insulin glargine (Lantus) pen - multi-dose SQ SCH (21:56)
[2019-01-01 22:00] VITALS: BP 146/89
[2019-01-02] MEDS: ipratropium 0.5 MG/2.5ML nebule IH SCH ×4 (02:42→19:53)
[2019-01-02] MEDS: HYDROcodone/acetaminophen 10/325mg tab PO PRN ×5 (02:54→20:44)
[2019-01-02 06:00] VITALS: BP 157/100
--- NOTE | 2019-01-02 06:20 | NUR ---
Patient in room ORTHO 4012. I have received report from VARSHA ONEAL and had the opportunity to ask questions and assume patient care.
--- NOTE | 2019-01-02 06:47 | NUR ---
Patient in room ORTHO 4012. I have received report from Dominique ONEAL and had the opportunity to ask questions and assume patient care.
[2019-01-02] MEDS: famotidine 20mg tablet PO SCH ×2 (07:48→20:44)
[2019-01-02] MEDS: aspirin 81mg tablet.DR PO SCH (07:48)
[2019-01-02] MEDS: multivitamins, therapeutics tablet PO SCH (07:49)
[2019-01-02] MEDS: lisinopril 20mg tablet PO SCH (07:49)
[2019-01-02] MEDS: busPIRone 5mg tablet PO SCH ×3 (07:49→20:44)
[2019-01-02] MEDS: clopidogrel 75mg tablet PO SCH (07:49)
[2019-01-02] MEDS: atorvastatin 20mg tablet PO SCH (07:49)
[2019-01-02] MEDS: vitamin D (cholecalciferol) 1,000 unit tablet PO SCH (07:50)
[2019-01-02] MEDS: insulin Lispro (HumaLOG) vial - multi-dose SQ SCH ×3 (08:38→19:16)
[2019-01-02] MEDS: budesonide 0.5mg/2ml UD nebule IH SCH ×2 (09:40→19:53)
[2019-01-02 10:00] VITALS: BP 141/81
[2019-01-02 10:43] VITALS: BP_SYST 138; BP_SYST 141; BP_DIAS 85; BP_DIAS 90
--- NOTE | 2019-01-02 11:59 | NUR ---
reassessment: Pt PO 100% meals meeting needs. LBM 12/31. No nutrition concerns at this time. Will continue to monitor. Recommend: 1. continue carb controlled diet; snacks between meals per MD 2. double protein with meals per patient request 3. wt per rx Addendum: 01/02/19 at [address] Amended: Links added.
--- NOTE | 2019-01-02 17:59 | NUR ---
I AGREE WITH MY PRECEPTEE HAMZAH ONEAL CHARTING.
[2019-01-02 18:00] VITALS: BP 122/63
--- NOTE | 2019-01-02 18:38 | NUR ---
Problems reprioritized. Patient report given, questions answered & plan of care reviewed with Joy ONEAL.
[2019-01-02] MEDS: sertraline 50mg tablet PO SCH ×2 (19:07→20:45)
[2019-01-02] MEDS: prazosin 1mg capsule PO SCH (20:33)
[2019-01-02] MEDS: insulin glargine (Lantus) pen - multi-dose SQ SCH (20:52)
[2019-01-02 22:00] VITALS: BP 132/68
[2019-01-03] VITALS: BP_SYST 131; BP_SYST 183; BP_DIAS 64; BP_DIAS 93
[2019-01-03] MEDS: HYDROcodone/acetaminophen 10/325mg tab PO PRN ×6 (01:24→21:28)
[2019-01-03] MEDS: ipratropium 0.5 MG/2.5ML nebule IH SCH ×4 (02:51→20:12)
[2019-01-03 06:00] VITALS: BP 125/75
--- NOTE | 2019-01-03 06:15 | NUR ---
Patient in room ORTHO 4012. I have received report from JANELL ONEAL and had the opportunity to ask questions and assume patient care.
--- NOTE | 2019-01-03 06:25 | NUR ---
Patient in room ORTHO 4012. I have received report from Joy ONEAL and had the opportunity to ask questions and assume patient care.
[2019-01-03 07:00] LABS: BASOPHILS # (AUTO) 0.1 X10'3 (0-0.2); BASOPHILS % (AUTO) 0.7 % (0-1); EOSINOPHILS # (AUTO) 0.2 X10'3 (0-0.9); EOSINOPHILS % (AUTO) 2.3 % (0-6); HEMATOCRIT 41.6 % (42.0-52.0); HEMOGLOBIN 13.9 g/dl (14.0-17.9); LYMPHOCYTES # (AUTO) 1.5 X10'3 (1.1-4.8); LYMPHOCYTES % (AUTO) 20.9 % (21-51); MEAN CORPUSCULAR HEMOGLOBIN 30.8 PG (27.0-31.0); MEAN CORPUSCULAR HGB CONC 33.4 g/dL (33.0-36.5); MEAN CORPUSCULAR VOLUME 92.3 FL (78-98); MEAN PLATELET VOLUME 7.8 FL (7.4-10.4); MONOCYTES % (AUTO) 13.5 % (2-12); NEUTROPHILS # (AUTO) 4.5 X10'3 (1.8-7.7); NEUTROPHILS % (AUTO) 62.6 % (42-75); PLATELET COUNT 325 X10'3 (140-440); RED CELL DISTRIBUTION WIDTH 13.3 % (11.5-14.5); WHITE BLOOD COUNT 7.1 X10'3 (4.5-11.0)
[2019-01-03 07:04] LABS: ALANINE AMINOTRANSFERASE 22 U/L (12-78); ALBUMIN/GLOBULIN RATIO 0.8 (1.1-1.5); ALKALINE PHOSPHATASE 59 IU/L (46-116); ANION GAP 10 (8-16); ASPARTATE AMINO TRANSFERASE 13 U/L (10-37); BILIRUBIN,TOTAL 0.2 MG/DL (0.1-1.0); BLOOD UREA NITROGEN 28 MG/DL (7-18); BUN/CREATININE RATIO 34.6 (5.4-32.0); CHLORIDE 103 MMOL/L (99-107); CREATININE 0.81 MG/DL (0.60-1.10); GLUCOSE 203 MG/DL (70-104); POTASSIUM 4.5 MMOL/L (3.5-5.1); SODIUM 136 MMOL/L (135-145); TOTAL CARBON DIOXIDE 23.3 MMOL/L (24-32); TOTAL PROTEIN 6.9 G/DL (6.4-8.2); eGFR > 90 ML/MIN
[2019-01-03] MEDS: clopidogrel 75mg tablet PO SCH (07:52)
[2019-01-03] MEDS: vitamin D (cholecalciferol) 1,000 unit tablet PO SCH (07:53)
[2019-01-03] MEDS: famotidine 20mg tablet PO SCH ×2 (07:53→20:40)
[2019-01-03] MEDS: atorvastatin 20mg tablet PO SCH (07:53)
[2019-01-03] MEDS: multivitamins, therapeutics tablet PO SCH (07:53)
[2019-01-03] MEDS: busPIRone 5mg tablet PO SCH ×3 (07:54→20:40)
[2019-01-03] MEDS: lisinopril 20mg tablet PO SCH (07:54)
[2019-01-03] MEDS: budesonide 0.5mg/2ml UD nebule IH SCH ×2 (07:55→20:12)
[2019-01-03] MEDS: aspirin 81mg tablet.DR PO SCH (07:56)
[2019-01-03] MEDS: insulin Lispro (HumaLOG) vial - multi-dose SQ SCH ×4 (08:44→20:46)
[2019-01-03 10:00] VITALS: BP 125/64
[2019-01-03] MEDS ORDERED: INSU100V9 SQ (11:13)
[2019-01-03] MEDS ORDERED: TRAM50TA2 PO (11:13)
--- NOTE | 2019-01-03 11:48 | NUR ---
cleared patient for DC. Patient appealing discharge. NSG provided Pt with medicare phone number. will continue to monitor Pt.
[2019-01-03 17:00] VITALS: BP 132/72
--- NOTE | 2019-01-03 18:13 | NUR ---
Problems reprioritized. Patient report given, questions answered & plan of care reviewed with Cherise ONEAL.
--- NOTE | 2019-01-03 18:14 | NUR ---
I AGREE WITH MY PRECEPTEE HAMZAH ONEAL'S CHARTING.
--- NOTE | 2019-01-03 19:11 | NUR ---
Patient in room ORTHO 4012. I have received report from Paulino Green and had the opportunity to ask questions and assume patient care. Addendum: 01/03/19 at 1911 by Cherise Flores RN Amended: Links added.
[2019-01-03 20:00] VITALS: BP_SYST 140; BP_SYST 161; BP_SYST 163; BP_DIAS 77; BP_DIAS 96; BP_DIAS 98
[2019-01-03] MEDS: prazosin 1mg capsule PO SCH ×2 (20:39→20:50)
[2019-01-03] MEDS: sertraline 50mg tablet PO SCH ×2 (20:39→20:50)
[2019-01-03] MEDS: insulin glargine (Lantus) pen - multi-dose SQ SCH (20:44)
--- NOTE | 2019-01-03 21:20 | NUR ---
pt medicated for pain with norco by Tal Green. hs snack of jello given per request. bed alarm on. drank decaff tea to assist with bowel motility.
[2019-01-03 22:00] VITALS: BP 140/77
--- NOTE | 2019-01-03 23:20 | NUR ---
resting eyes closed without s&S of distress.
--- NOTE | 2019-01-04 00:22 | NUR ---
resting on right side no s&s of distress
[2019-01-04] MEDS: HYDROcodone/acetaminophen 10/325mg tab PO PRN ×6 (01:56→23:11)
[2019-01-04] MEDS: ipratropium 0.5 MG/2.5ML nebule IH SCH ×4 (01:59→20:44)
--- NOTE | 2019-01-04 01:59 | NUR ---
pt awoke c/o pain 9/10 rib pain and medicated for this with norco.
--- NOTE | 2019-01-04 03:15 | NUR ---
resting eyes closed without changes
--- NOTE | 2019-01-04 05:15 | NUR ---
pt resting eyes closed no s&s of distress at this time.
--- NOTE | 2019-01-04 05:52 | NUR ---
pt medicated for pain with norco c/o 11/06. pt sitting on edge of bed and talking.
[2019-01-04 06:00] VITALS: BP 123/76
--- NOTE | 2019-01-04 06:08 | NUR ---
Problems reprioritized. Patient report given, questions answered & plan of care reviewed with SNOW ONEAL'S. Addendum: 01/04/19 at 0609 by Cherise Flores RN Amended: Links added.
--- NOTE | 2019-01-04 06:33 | NUR ---
Patient in room ORTHO 4012. I have received report from Cherise ONEAL and had the opportunity to ask questions and assume patient care.
[2019-01-04] MEDS: insulin Lispro (HumaLOG) vial - multi-dose SQ SCH ×3 (08:45→18:52)
[2019-01-04] MEDS: multivitamins, therapeutics tablet PO SCH (08:50)
[2019-01-04] MEDS: famotidine 20mg tablet PO SCH ×2 (08:50→20:29)
[2019-01-04] MEDS: atorvastatin 20mg tablet PO SCH (08:50)
[2019-01-04] MEDS: busPIRone 5mg tablet PO SCH ×3 (08:50→20:29)
[2019-01-04] MEDS: lisinopril 20mg tablet PO SCH (08:51)
[2019-01-04] MEDS: vitamin D (cholecalciferol) 1,000 unit tablet PO SCH (08:52)
[2019-01-04] MEDS: clopidogrel 75mg tablet PO SCH (08:53)
[2019-01-04] MEDS: aspirin 81mg tablet.DR PO SCH (08:53)
[2019-01-04] MEDS: budesonide 0.5mg/2ml UD nebule IH SCH ×2 (09:35→20:44)
[2019-01-04 10:00] VITALS: BP 133/64
--- NOTE | 2019-01-04 17:53 | NUR ---
I AGREE WITH MY PRECEPTEE HAMZAH ONEAL'S CHARTING.
[2019-01-04 18:00] VITALS: BP 151/75
--- NOTE | 2019-01-04 18:25 | NUR ---
Received report from Paulino ONEAL & Richy ONEAL.
--- NOTE | 2019-01-04 18:46 | NUR ---
Problems reprioritized. Patient report given, questions answered & plan of care reviewed with Puja RN.
[2019-01-04] MEDS: sertraline 50mg tablet PO SCH (20:31)
[2019-01-04] MEDS: prazosin 1mg capsule PO SCH (20:32)
[2019-01-04] MEDS: insulin glargine (Lantus) pen - multi-dose SQ SCH (20:38)
[2019-01-04 22:00] VITALS: BP 130/73
[2019-01-05] MEDS: ipratropium 0.5 MG/2.5ML nebule IH SCH ×4 (02:32→21:20)
[2019-01-05] MEDS: HYDROcodone/acetaminophen 10/325mg tab PO PRN ×5 (03:13→21:35)
--- NOTE | 2019-01-05 06:10 | NUR ---
Gave report to Yoko ONEAL.
[2019-01-05] MEDS: busPIRone 5mg tablet PO SCH ×3 (07:29→20:27)
[2019-01-05] MEDS: famotidine 20mg tablet PO SCH ×2 (07:29→20:27)
[2019-01-05] MEDS: aspirin 81mg tablet.DR PO SCH (07:29)
[2019-01-05] MEDS: clopidogrel 75mg tablet PO SCH (07:29)
[2019-01-05] MEDS: vitamin D (cholecalciferol) 1,000 unit tablet PO SCH (07:29)
[2019-01-05] MEDS: atorvastatin 20mg tablet PO SCH (07:29)
[2019-01-05] MEDS: multivitamins, therapeutics tablet PO SCH (07:29)
[2019-01-05] MEDS: lisinopril 20mg tablet PO SCH (07:33)
[2019-01-05] MEDS: budesonide 0.5mg/2ml UD nebule IH SCH ×2 (09:13→21:20)
[2019-01-05] MEDS: insulin Lispro (HumaLOG) vial - multi-dose SQ SCH ×2 (09:25→14:10)
[2019-01-05 10:00] VITALS: BP 130/64
--- NOTE | 2019-01-05 18:59 | NUR ---
Report rec'd from luis Babcock.
[2019-01-05] MEDS: sertraline 50mg tablet PO SCH (20:28)
[2019-01-05] MEDS: prazosin 1mg capsule PO SCH (20:28)
[2019-01-05] MEDS: insulin glargine (Lantus) pen - multi-dose SQ SCH (21:34)
[2019-01-05 22:00] VITALS: BP 156/90
--- NOTE | 2019-01-05 22:25 | NUR ---
pt states that he "fell" and "his chest hurts". this is not heart pain, but musculoskeletal pain.
[2019-01-06] MEDS: HYDROcodone/acetaminophen 10/325mg tab PO PRN ×5 (02:28→20:59)
[2019-01-06] MEDS: ipratropium 0.5 MG/2.5ML nebule IH SCH ×4 (02:56→20:40)
[2019-01-06 06:00] VITALS: BP 120/65
--- NOTE | 2019-01-06 06:11 | NUR ---
Report given to luis Babcock.
[2019-01-06] MEDS: budesonide 0.5mg/2ml UD nebule IH SCH ×2 (07:11→20:40)
[2019-01-06] MEDS: famotidine 20mg tablet PO SCH ×2 (08:15→20:58)
[2019-01-06] MEDS: clopidogrel 75mg tablet PO SCH (08:15)
[2019-01-06] MEDS: aspirin 81mg tablet.DR PO SCH (08:15)
[2019-01-06] MEDS: atorvastatin 20mg tablet PO SCH (08:15)
[2019-01-06] MEDS: multivitamins, therapeutics tablet PO SCH (08:15)
[2019-01-06] MEDS: busPIRone 5mg tablet PO SCH ×3 (08:15→20:57)
[2019-01-06] MEDS: vitamin D (cholecalciferol) 1,000 unit tablet PO SCH (08:16)
[2019-01-06] MEDS: lisinopril 20mg tablet PO SCH (08:16)
[2019-01-06] MEDS: insulin Lispro (HumaLOG) vial - multi-dose SQ SCH ×3 (09:19→18:51)
[2019-01-06 10:00] VITALS: BP 118/64
[2019-01-06] MEDS: ipratropium/albuterol 3ml nebule NEB PRN (11:56)
[2019-01-06 18:00] VITALS: BP 167/99
[2019-01-06] MEDS: insulin glargine (Lantus) pen - multi-dose SQ SCH (20:47)
[2019-01-06] MEDS: prazosin 1mg capsule PO SCH (20:57)
[2019-01-06] MEDS: sertraline 50mg tablet PO SCH (20:58)
[2019-01-06 22:00] VITALS: BP 103/62
[2019-01-07] MEDS: HYDROcodone/acetaminophen 10/325mg tab PO PRN ×3 (01:02→10:18)
[2019-01-07] MEDS: ipratropium 0.5 MG/2.5ML nebule IH SCH ×4 (02:54→20:03)
[2019-01-07 06:00] VITALS: BP 107/57
--- NOTE | 2019-01-07 06:21 | NUR ---
Problems reprioritized. Patient report given, questions answered & plan of care reviewed with JM PINO.
--- NOTE | 2019-01-07 06:30 | NUR ---
Patient in room ORTHO 4013. I have received report from JM Roy and had the opportunity to ask questions and assume patient care.
[2019-01-07] MEDS: busPIRone 5mg tablet PO SCH ×3 (07:42→20:50)
[2019-01-07] MEDS: clopidogrel 75mg tablet PO SCH (07:47)
[2019-01-07] MEDS: multivitamins, therapeutics tablet PO SCH (07:47)
[2019-01-07] MEDS: aspirin 81mg tablet.DR PO SCH (07:47)
[2019-01-07] MEDS: atorvastatin 20mg tablet PO SCH (07:47)
[2019-01-07] MEDS: famotidine 20mg tablet PO SCH ×2 (07:47→19:05)
[2019-01-07] MEDS: vitamin D (cholecalciferol) 1,000 unit tablet PO SCH (07:48)
[2019-01-07] MEDS: lisinopril 20mg tablet PO SCH (07:49)
[2019-01-07] MEDS: budesonide 0.5mg/2ml UD nebule IH SCH ×2 (08:18→20:03)
[2019-01-07 10:00] VITALS: BP 132/75
[2019-01-07] MEDS: insulin Lispro (HumaLOG) vial - multi-dose SQ SCH ×2 (14:42→19:11)
[2019-01-07] MEDS: HYDROcodone/acetaminophen 5mg/325mg tablet PO PRN ×2 (14:44→19:06)
[2019-01-07 18:00] VITALS: BP 135/81
--- NOTE | 2019-01-07 18:25 | NUR ---
Received report from JM Babcock. Patient is awake and alert on room air, in no apparent distress. Call light and items of frequent use within reach. Will continue to monitor.
--- NOTE | 2019-01-07 18:39 | NUR ---
Problems reprioritized. Patient report given, questions answered & plan of care reviewed with JM Gutierrez.
[2019-01-07] MEDS: prazosin 1mg capsule PO SCH (20:50)
[2019-01-07] MEDS: insulin glargine (Lantus) pen - multi-dose SQ SCH (20:53)
[2019-01-07] MEDS: sertraline 50mg tablet PO SCH (20:54)
[2019-01-07 22:00] VITALS: BP 141/66
[2019-01-08] MEDS: HYDROcodone/acetaminophen 5mg/325mg tablet PO PRN ×5 (00:25→20:27)
[2019-01-08] MEDS: ipratropium 0.5 MG/2.5ML nebule IH SCH ×4 (02:35→19:55)
[2019-01-08 06:00] VITALS: BP 144/84
--- NOTE | 2019-01-08 06:30 | NUR ---
Patient in room ORTHO 4013. I have received report from and had the opportunity to ask questions and assume patient care JM Gutierrez.
--- NOTE | 2019-01-08 06:32 | NUR ---
Problems reprioritized. Patient report given, questions answered & plan of care reviewed with JM May.
[2019-01-08] MEDS: famotidine 20mg tablet PO SCH ×2 (07:44→20:27)
[2019-01-08] MEDS: atorvastatin 20mg tablet PO SCH (07:44)
[2019-01-08] MEDS: vitamin D (cholecalciferol) 1,000 unit tablet PO SCH (07:44)
[2019-01-08] MEDS: busPIRone 5mg tablet PO SCH ×3 (07:44→20:27)
[2019-01-08] MEDS: clopidogrel 75mg tablet PO SCH (07:44)
[2019-01-08] MEDS: lisinopril 20mg tablet PO SCH (08:00)
[2019-01-08] MEDS: multivitamins, therapeutics tablet PO SCH (08:00)
[2019-01-08] MEDS: aspirin 81mg tablet.DR PO SCH (08:00)
[2019-01-08] MEDS: budesonide 0.5mg/2ml UD nebule IH SCH ×2 (09:51→19:56)
[2019-01-08 10:00] VITALS: BP 155/88
[2019-01-08] MEDS: insulin Lispro (HumaLOG) vial - multi-dose SQ SCH ×3 (10:58→18:43)
[2019-01-08 18:00] VITALS: BP 136/84
--- NOTE | 2019-01-08 18:47 | NUR ---
Patient in room ORTHO 4013. I have received report from luis May and had the opportunity to ask questions and assume patient care.
[2019-01-08] MEDS: prazosin 1mg capsule PO SCH (20:27)
[2019-01-08] MEDS: insulin glargine (Lantus) pen - multi-dose SQ SCH (20:33)
[2019-01-08] MEDS: sertraline 50mg tablet PO SCH (21:00)
[2019-01-08 22:00] VITALS: BP 152/87
[2019-01-09] MEDS: HYDROcodone/acetaminophen 5mg/325mg tablet PO PRN ×2 (00:57→05:35)
[2019-01-09] MEDS: ipratropium 0.5 MG/2.5ML nebule IH SCH ×2 (02:48→08:51)
[2019-01-09 06:27] VITALS: BP 148/92
--- NOTE | 2019-01-09 06:46 | NUR ---
Problems reprioritized. Patient report given, questions answered & plan of care reviewed with JM MANUEL.
[2019-01-09] MEDS: budesonide 0.5mg/2ml UD nebule IH SCH (08:51)
[2019-01-09] MEDS: insulin Lispro (HumaLOG) vial - multi-dose SQ SCH (09:02)
[2019-01-09] MEDS: multivitamins, therapeutics tablet PO SCH (09:05)
[2019-01-09] MEDS: famotidine 20mg tablet PO SCH (09:05)
[2019-01-09 09:11] VITALS: BP_SYST 150
[2019-01-09] MEDS: lisinopril 20mg tablet PO SCH (09:11)
[2019-01-09] MEDS: clopidogrel 75mg tablet PO SCH (09:12)
[2019-01-09] MEDS: busPIRone 5mg tablet PO SCH (09:12)
[2019-01-09] MEDS: aspirin 81mg tablet.DR PO SCH (09:13)
[2019-01-09] MEDS: atorvastatin 20mg tablet PO SCH (09:13)
[2019-01-09] MEDS: HYDROcodone/acetaminophen 10/325mg tab PO PRN (10:10)
[2019-01-09] MEDS: vitamin D (cholecalciferol) 1,000 unit tablet PO SCH (10:10)
--- NOTE | 2019-01-09 11:01 | NUR ---
reassessment: Pt PO 100% meals meeting needs. LBM 01/08. No nutrition concerns at this time. Will continue to monitor. Recommend: 1. continue carb controlled diet; snacks between meals per MD 2. double protein with meals per patient request 3. wt per rx Addendum: 01/09/19 at [address] Amended: Links added.
== END 2019-01-09 12:40 | disposition home or self-care (01) | DRG 312 ==
LOC: ER 13:23 → ORTHO 4S 17:16 → OBSVTOIN 19:33 → INTOOBSV 19:33 → UNDOADMOB 19:33 → ORTHO 4S 19:33 → CMPBEDREQ 12-30 19:56 → ORTHO 4S 01-06 09:30
PROVIDERS: ADMIT Internal Medicine; ATTEND Family Medicine
DX: I95.1 Orthostatic hypotension (principal); E11.42 Type 2 diabetes mellitus with diabetic polyneuropathy; F43.10 Post-traumatic stress disorder, unspecified; E11.65 Type 2 diabetes mellitus with hyperglycemia; E66.9 Obesity, unspecified; E78.00 Pure hypercholesterolemia, unspecified; E78.5 Hyperlipidemia, unspecified; F32.9 Major depressive disorder, single episode, unspecified; F41.0 Panic disorder [episodic paroxysmal anxiety]; I48.91 Unspecified atrial fibrillation; I10 Essential (primary) hypertension; G89.29 Other chronic pain; Z60.2 Problems related to living alone; M19.90 Unspecified osteoarthritis, unspecified site; M54.9 Dorsalgia, unspecified; I25.10 Atherosclerotic heart disease of native coronary artery without angina pectoris; J44.9 Chronic obstructive pulmonary disease, unspecified; Z79.02 Long term (current) use of antithrombotics/antiplatelets; Z79.4 Long term (current) use of insulin; Z79.51 Long term (current) use of inhaled steroids; Z79.899 Other long term (current) drug therapy; Z87.01 Personal history of pneumonia (recurrent); Z68.32 Body mass index [BMI] 32.0-32.9, adult; Z83.3 Family history of diabetes mellitus; I25.2 Old myocardial infarction; Z90.49 Acquired absence of other specified parts of digestive tract; Z88.0 Allergy status to penicillin; Z88.8 Allergy status to other drugs, medicaments and biological substances; Z82.49 Family history of ischemic heart disease and other diseases of the circulatory system
CPT/HCPCS: 36415; 71045; 73721; 80048; 80053; 80320; 81001; 82948; 83036; 83735; 83880; 84484; 85025; 85610; 85730; 87081; 93005; 93306; 93880; 94640; 94760; 97110; 97112; 97116; 97161; 97530; G0378; J1815; J2270; J7030; J7626

== ENCOUNTER 2019-03-10 19:31 | Emergency (ER) | payer MEDICARE, MEDICAID ==
[~2019-03-10] VITALS: Ht 167.6 cm; Wt 81.0 kg
[~2019-03-10 19:31] MED LIST changes: -ARIP5TAB60 PO; +ASPI81TA52 PO; +CHOL100046 PO; -DOCU100C40 PO; -FAMO20TA8 PO; +FLUT12AE9 IH; -FLUT1DIS7 INH; +INSU100V9 SQ; +METF-795 PO; -METF1000 PO; +MULT-933 PO; +RANI-648 PO; +SERT100T10 PO; -TRAZ-251 PO; -VENL75CA61 PO
[2019-03-10] MEDS ORDERED: LORazepam 2 mg/ml vial IV ONE (19:40)
[2019-03-10] MEDS ORDERED: LORazepam 1 MG tablet PO ONE (19:45)
[2019-03-10] MEDS ORDERED: HYDROcodone/acetaminophen 5mg/325mg tablet PO ONE (21:15)
[2019-03-10] MEDS ORDERED: haloperidol lactate 5mg/ml inj IV ONE (21:30)
[2019-03-10] MEDS ORDERED: haloperidol lactate 5mg/ml inj IM ONE (21:40)
[2019-03-10] MEDS ORDERED: magnesium hydroxide 30ml (MOM) UD suspension PO ONE (22:10)
--- NOTE | 2019-03-10 22:30 | NUR ---
While in the ED, Patient had been talking about falling multiple times at home without any notable injury. He stated that he hoped the wouldn't "kick him out". after the float nurseRosemarie had made sure the rails were up, the patient skootd himself to the end of the bed. Then, just before he skooted himself of the bed, he hollared the primary nurse's name. He was visualized voluntarily falling to the ground slowly without potential for injury.
[2019-03-10 23:13] LABS: BASOPHILS % (AUTO) 0.5 % (0-1); EOSINOPHILS # (AUTO) 0.1 X10'3 (0-0.9); EOSINOPHILS % (AUTO) 0.8 % (0-6); HEMOGLOBIN 15.7 g/dl (14.0-17.9); LYMPHOCYTES # (AUTO) 1.4 X10'3 (1.1-4.8); LYMPHOCYTES % (AUTO) 13.4 % (21-51); MEAN CORPUSCULAR HEMOGLOBIN 31.2 PG (27.0-31.0); MEAN CORPUSCULAR HGB CONC 34.2 g/dL (33.0-36.5); MEAN CORPUSCULAR VOLUME 91.2 FL (78-98); MEAN PLATELET VOLUME 8.2 FL (7.4-10.4); MONOCYTES % (AUTO) 10.1 % (2-12); NEUTROPHILS # (AUTO) 7.7 X10'3 (1.8-7.7); NEUTROPHILS % (AUTO) 75.2 % (42-75); PLATELET COUNT 306 X10'3 (140-440); RED BLOOD COUNT 5.04 X10'6 (4.70-6.10); RED CELL DISTRIBUTION WIDTH 13.3 % (11.5-14.5); WHITE BLOOD COUNT 10.2 X10'3 (4.5-11.0)
[2019-03-10 23:23] LABS: ALANINE AMINOTRANSFERASE 20 U/L (12-78); ALBUMIN 3.7 G/DL (3.4-5.0); ALBUMIN/GLOBULIN RATIO 0.9 (1.1-1.5); ALKALINE PHOSPHATASE 63 IU/L (46-116); ANION GAP 14 (8-16); ASPARTATE AMINO TRANSFERASE 18 U/L (10-37); BILIRUBIN,TOTAL 0.5 MG/DL (0.1-1.0); BLOOD UREA NITROGEN 15 MG/DL (7-18); BUN/CREATININE RATIO 14.3 (5.4-32.0); CHLORIDE 101 MMOL/L (99-107); CREATININE 1.05 MG/DL (0.60-1.10); GLUCOSE 218 MG/DL (70-104); POTASSIUM 3.6 MMOL/L (3.5-5.1); SODIUM 136 MMOL/L (135-145); TOTAL CARBON DIOXIDE 21.4 MMOL/L (24-32); TOTAL PROTEIN 7.9 G/DL (6.4-8.2); eGFR 70 ML/MIN
[2019-03-10 23:26] LABS: ETHANOL < 0.010 GM/DL (0.0-0.010)
--- NOTE | 2019-03-10 23:52 | NUR ---
PT MOVED TO ED OVERFLOW AREA ED BED 26 BY COMMERCIAL ESTIMATOR.
[2019-03-11] MEDS ORDERED: LANTUS SQ
[2019-03-11] MEDS ORDERED: TRAM50TA2 PO (00:01)
[2019-03-11 00:09] LABS: URINE AMPHETAMINE SCREEN NEGATIVE (Neg); URINE BARBITUATE SCREEN NEGATIVE (Neg); URINE BENZODIAZEPINES SCREEN NEGATIVE (Neg); URINE CANNABINOID SCREEN POSITIVE (Neg); URINE COCAINE SCREEN NEGATIVE (Neg); URINE METHADONE SCREEN NEGATIVE (Neg); URINE OPIATE SCREEN NEGATIVE (Neg); URINE PHENCYCLIDINE SCREEN NEGATIVE (Neg)
--- NOTE | 2019-03-11 00:15 | NUR ---
ASSUMED CARE OF PT . PT WITH INT TO RIGHT ARM PATENT WITHOUT INCIDENT. INTACT IN GREEN SCRUBS. PT GIVEN A TURKEY SNADWITCH AND XIN PT HAS NO COMPLAINTS AT THIS TIME PLAN OF CARE UPDATED . PT CONCERNED ABOUT HIS" GIRLFRIEND" , REASSURED PT THAT IN THE AM HE WILL HAVE THE OPPOURTUNITY TO PHONE HER. IT IS AFTER MIDNIGHT AND MOST ARE SLEEPING . PT AGREED TO PHONE" GIRLFRIEND/BESTFRIEND" IN THE AM
--- NOTE | 2019-03-11 00:51 | NUR ---
PT LAYING ON HIS RIGHT SIDE ALSEEP AT THIS TIME.
--- NOTE | 2019-03-11 01:18 | NUR ---
PT BLOOD SUGAR AT 253 SPOKE WITH ROHINI HENDERSON ABOUT BLOOD SUGAR VALUE AND THAT PREVIOUS BLOOD SUGAR AT 2300 WAS 200
[2019-03-11] MEDS ORDERED: normal saline 1000ML IV soln IVB ONE (01:20)
--- NOTE | 2019-03-11 01:20 | NUR ---
ROHINI HENDERSON SPOKE WITH MD RIZZO ABOUT CURRENT BLOOD SUGAR VALUE . WILL GIVE NS BOLUS ORDERED AND RECHECK BLOOD SUGAR ONCE BOLUS IS COMPLETE.
--- NOTE | 2019-03-11 01:25 | NUR ---
DR RIZZO AWARE OF PROTOCAL IN REGARDS TO BLOOD SUGAR VALUE OVER 200 . STATED HE WOULD LIKE TO HYDRATE PT WITH NS BOLUS AND RECHECK HIS BLOOD SUGAR VALUE. HE DOES NOT WANT TO LOWER HIS BLOOD SUGAR TO QUICKLY . WILL CONTINUE TO MONITOR AND REASSESS
--- NOTE | 2019-03-11 01:34 | NUR ---
PT ASKED IF HE COULD WALK TO THE BATHROOM TO VOID PRIOR TO IVF BOLUS. PT ASSITED TO THE BATHROOM . STEADY GAIT GOOD STRENGTH WITH AMBULATION
--- NOTE | 2019-03-11 01:45 | NUR ---
PT AMBULATED BACK TO BED WITH STEADY GAIT PLAN OF CARE UPDATED PT AWARE THAT HIS BLOOD SUGAR WILL BE RECHECKED ABOUT 1025-2795 ONCE NS BOLUS IS COMPLETE
--- NOTE | 2019-03-11 02:25 | NUR ---
BLOOD SUGAR AT [address] RIZZO NS BOLUS COMPLETE
--- NOTE | 2019-03-11 02:55 | NUR ---
Note undone in EDM - 03/11/19 at 0300 by LSTOCKTON PT SELLPING ON BACK . OCCATIONALLY MUMBLES IN HIS SLEEP , APPEARS TO MAKE MOTIONS LIKE HE MIGHT BE FALLING AURODABLE BY TOUCH. ONCE AWOKEN ASKED THE TIME . WARM BLANKET GIVEN MED REC COMPLETED DR RIZZO OF PT MUMNLING IN HIS SLEEP . WILL CONTINUE TO REASSESS .
--- NOTE | 2019-03-11 03:00 | NUR ---
PT RESTING COMFORTBALY ON HIS LEFT SIDE . BLOOD SUGAR VALUE REPORTED TO DR RIZZO .
--- NOTE | 2019-03-11 04:00 | NUR ---
PT SLEEPING ON RIGHT SIDE
--- NOTE | 2019-03-11 05:20 | NUR ---
PT UP AND OUT OF BED TO VOID IN BATHROOM STEADY GAIT .
[2019-03-11 05:53] VITALS: BP_DIAS 97
[2019-03-11] MEDS ORDERED: nitroGLYCERIN 0.4mg SUBLingual tab SL PRN (06:15)
[2019-03-11] MEDS ORDERED: traMADol 50MG tablet PO PRN (06:15)
--- NOTE | 2019-03-11 07:00 | NUR ---
Received pt asleep in bed without complaints or distress.
[2019-03-11] MEDS ORDERED: busPIRone 5mg tablet PO SCH (08:00)
[2019-03-11] MEDS ORDERED: atorvastatin 20mg tablet PO SCH (08:00)
[2019-03-11] MEDS ORDERED: famotidine 20mg tablet PO SCH (08:00)
[2019-03-11] MEDS ORDERED: vitamin D (cholecalciferol) 1,000 unit tablet PO SCH (08:00)
[2019-03-11] MEDS ORDERED: clopidogrel 75mg tablet PO SCH (08:00)
[2019-03-11] MEDS ORDERED: multivitamins, therapeutics tablet PO SCH (08:00)
[2019-03-11] MEDS ORDERED: ipratropium 0.5 MG/2.5ML nebule IH SCH (08:00)
[2019-03-11] MEDS ORDERED: lisinopril 20mg tablet PO SCH (08:00)
[2019-03-11] MEDS ORDERED: aspirin 81mg tablet.DR PO SCH (08:00)
[2019-03-11] MEDS ORDERED: metFORMIN 500mg tablet PO SCH (08:00)
[2019-03-11 08:46] VITALS: BP_SYST 156
[2019-03-11] MEDS ORDERED: budesonide 0.5mg/2ml UD nebule IH SCH (09:00)
--- NOTE | 2019-03-11 09:00 | NUR ---
Pt up for breakfast. Pt denies s.i. and h.i. Pt interacting appropriately with staff and pt in bed next to him.
[2019-03-11] MEDS ORDERED: acetaminophen 325mg tablet PO PRN (09:05)
[2019-03-11] MEDS ORDERED: ipratropium/albuterol 3ml nebule NEB PRN (16:00)
[2019-03-11] MEDS ORDERED: insulin glargine (Lantus) pen - multi-dose SQ SCH (21:00)
[2019-03-11] MEDS ORDERED: sertraline 50mg tablet PO SCH (21:00)
== END 2019-03-11 09:40 ==
LOC: ER 19:31
DX: F43.10 Post-traumatic stress disorder, unspecified (principal); F88 Other disorders of psychological development; E11.42 Type 2 diabetes mellitus with diabetic polyneuropathy; I25.10 Atherosclerotic heart disease of native coronary artery without angina pectoris; E78.00 Pure hypercholesterolemia, unspecified; I10 Essential (primary) hypertension; I25.2 Old myocardial infarction; J44.9 Chronic obstructive pulmonary disease, unspecified; M19.90 Unspecified osteoarthritis, unspecified site; G89.29 Other chronic pain; F41.9 Anxiety disorder, unspecified; F31.9 Bipolar disorder, unspecified; Z86.14 Personal history of Methicillin resistant Staphylococcus aureus infection; Z90.49 Acquired absence of other specified parts of digestive tract; Z95.5 Presence of coronary angioplasty implant and graft; Z98.890 Other specified postprocedural states; Z60.2 Problems related to living alone; Z88.8 Allergy status to other drugs, medicaments and biological substances; Z88.5 Allergy status to narcotic agent; Z88.0 Allergy status to penicillin; Z79.82 Long term (current) use of aspirin; Z79.4 Long term (current) use of insulin; Z79.84 Long term (current) use of oral hypoglycemic drugs; Z79.899 Other long term (current) drug therapy
CPT/HCPCS: 36415; 71045; 80053; 80305; 80320; 82948; 85025; 93005; 94640; 94760; 96372; 99284; J1630; J7030; J1815; J7626

== ENCOUNTER 2019-04-15 12:11 | Emergency (ER) | payer MEDICAID ==
[~2019-04-15] VITALS: Ht 167.6 cm; Wt 0.9 kg
[~2019-04-15 12:11] MED LIST changes: -INSU100V9 SQ; +LANTUS SQ
[2019-04-15] MEDS ORDERED: traMADol 50MG tablet PO ONE (12:40)
[2019-04-15] MEDS ORDERED: acetaminophen 325mg tablet PO ONE (12:50)
[2019-04-15 13:43] VITALS: BP 145/73
== END 2019-04-15 13:51 | disposition home or self-care (01) ==
LOC: ER 12:12
DX: F11.23 Opioid dependence with withdrawal (principal); R20.3 Hyperesthesia; I25.10 Atherosclerotic heart disease of native coronary artery without angina pectoris; E78.00 Pure hypercholesterolemia, unspecified; I25.2 Old myocardial infarction; J44.9 Chronic obstructive pulmonary disease, unspecified; M19.90 Unspecified osteoarthritis, unspecified site; G89.29 Other chronic pain; F12.90 Cannabis use, unspecified, uncomplicated; E11.42 Type 2 diabetes mellitus with diabetic polyneuropathy; Z95.5 Presence of coronary angioplasty implant and graft; Z90.49 Acquired absence of other specified parts of digestive tract; Z88.6 Allergy status to analgesic agent; Z88.5 Allergy status to narcotic agent; Z88.0 Allergy status to penicillin; Z79.82 Long term (current) use of aspirin; Z79.899 Other long term (current) drug therapy; Z79.4 Long term (current) use of insulin
CPT/HCPCS: 99284

== ENCOUNTER 2019-04-17 09:54 | Emergency (ER) | payer MEDICARE, MEDICAID ==
[~2019-04-17] VITALS: Ht 167.6 cm; Wt 90.7 kg
--- NOTE | 2019-04-17 10:07 | NUR ---
spoke to dr. hale, about head CT and per MD he will see the patient first.
--- NOTE | 2019-04-17 10:10 | NUR ---
when speaking with the pt on his arrival he states over and over his concern of going home and falling again and not being able to get help. he states "i'm not suicidal, I have xxx in my life" don't remember the name. but then the pt went in to talking about what he states happened another time and he said "what, do I have to have a real fall to get help?"
[2019-04-17] MEDS ORDERED: normal saline 1000ml 1,000 ML IVB ONE (11:04)
--- NOTE | 2019-04-17 11:06 | NUR ---
Trauma Called Off at [address] Dasilva
[2019-04-17] MEDS ORDERED: morphine 4 MG/ML inj SYRINge IV ONE (11:25)
[2019-04-17] MEDS ORDERED: LORazepam 2 mg/ml vial IV ONE (11:25)
[2019-04-17 11:48] LABS: BASOPHILS # (AUTO) 0.1 X10'3 (0-0.2); BASOPHILS % (AUTO) 0.6 % (0-1); EOSINOPHILS # (AUTO) 0.1 X10'3 (0-0.9); EOSINOPHILS % (AUTO) 0.6 % (0-6); HEMATOCRIT 46.8 % (42.0-52.0); LYMPHOCYTES # (AUTO) 1.3 X10'3 (1.1-4.8); LYMPHOCYTES % (AUTO) 13.4 % (21-51); MEAN CORPUSCULAR HEMOGLOBIN 30.9 PG (27.0-31.0); MEAN CORPUSCULAR HGB CONC 34.3 g/dL (33.0-36.5); MEAN CORPUSCULAR VOLUME 90.3 FL (78-98); MEAN PLATELET VOLUME 7.9 FL (7.4-10.4); MONOCYTES # (AUTO) 0.9 X10'3 (0-0.9); MONOCYTES % (AUTO) 9.1 % (2-12); NEUTROPHILS # (AUTO) 7.6 X10'3 (1.8-7.7); NEUTROPHILS % (AUTO) 76.3 % (42-75); PLATELET COUNT 313 X10'3 (140-440); RED BLOOD COUNT 5.19 X10'6 (4.70-6.10); RED CELL DISTRIBUTION WIDTH 13.9 % (11.5-14.5); WHITE BLOOD COUNT 9.9 X10'3 (4.5-11.0)
[2019-04-17 11:49] LABS: ALANINE AMINOTRANSFERASE 24 U/L (12-78); ALBUMIN 3.8 G/DL (3.4-5.0); ALKALINE PHOSPHATASE 69 IU/L (46-116); ANION GAP 9 (8-16); ASPARTATE AMINO TRANSFERASE 18 U/L (10-37); BILIRUBIN,TOTAL 0.8 MG/DL (0.1-1.0); BLOOD UREA NITROGEN 7 MG/DL (7-18); BUN/CREATININE RATIO 9.6 (5.4-32.0); CALCIUM 9.1 MG/DL (8.5-10.1); CHLORIDE 102 MMOL/L (99-107); CREATININE 0.73 MG/DL (0.60-1.10); ETHANOL < 0.010 GM/DL (0.0-0.010); GLUCOSE 218 MG/DL (70-104); MAGNESIUM 1.7 MG/DL (1.5-2.4); POTASSIUM 3.3 MMOL/L (3.5-5.1); SODIUM 134 MMOL/L (135-145); TOTAL CARBON DIOXIDE 23.5 MMOL/L (24-32); TOTAL PROTEIN 7.7 G/DL (6.4-8.2); eGFR > 90 ML/MIN
[2019-04-17 11:53] LABS: PARTIAL THROMBOPLASTIN TIME 26 SECONDS (22-32)
--- NOTE | 2019-04-17 13:37 | NUR ---
Recieved a phone call from Aga Borja at [facility] to advise that if Pt. was admitted [address] bed control at [phone] for assistance with admittion to [facility] mental [facility] facility. Aga Borja can be contacted at [phone]
[2019-04-17 14:51] LABS: CLARITY,URINE CLEAR (Clear); COLOR,URINE STRAW (Yellow); GLUCOSE, URINE 500 mg/dl (Neg); KETONES,URINE NEGATIVE (Neg); LEUKOCYTE ESTERASE ,URINE NEGATIVE (Neg); NITRITES, URINE NEGATIVE (Neg); OCCULT BLOOD,URINE NEGATIVE (Neg); PROTEIN,URINE NEGATIVE (Neg); UROBILINOGEN,URINE 0.2 E.U/dL (0.2-1.0)
[2019-04-17 15:00] LABS: UA COLLECTION TYPE NON-SPECIFIED
[2019-04-17 15:04] LABS: URINE AMPHETAMINE SCREEN NEGATIVE (Neg); URINE BARBITUATE SCREEN NEGATIVE (Neg); URINE BENZODIAZEPINES SCREEN NEGATIVE (Neg); URINE CANNABINOID SCREEN POSITIVE (Neg); URINE COCAINE SCREEN NEGATIVE (Neg); URINE METHADONE SCREEN NEGATIVE (Neg); URINE OPIATE SCREEN POSITIVE (Neg); URINE PHENCYCLIDINE SCREEN NEGATIVE (Neg)
--- NOTE | 2019-04-17 15:17 | NUR ---
PACKET FAXED TO [facility]
--- NOTE | 2019-04-17 15:31 | NUR ---
PATIENT ADAMANTLY DENIES SUICIDAL IDEATION AT THIS TIME AND STATED "I CAME HERE BECAUSE I WANT TO FIND OUT WHY I AM FALLING DOWN"
--- NOTE | 2019-04-17 15:33 | NUR ---
PATIENT EATING A TURKEY SANDWHICH AT THIS TIME, SITTING ON EDGE OF BED, TALKING WITH PATIENT IN NEXT BED
--- NOTE | 2019-04-17 16:42 | NUR ---
PT. TO THE BATHROOM USING A WALKER.
--- NOTE | 2019-04-17 16:44 | NUR ---
WHEN TALKING TO THE PT, PT. DENIED SI, OR WANTING TO HURT OTHERS. DENIES ANY RECENT SI ATTEMPTS. PER PT. "WANTS TO WHY HE GETS DIZZY".
[2019-04-17] MEDS ORDERED: nitroGLYCERIN 0.4mg SUBLingual tab SL PRN (16:50)
[2019-04-17] MEDS: traMADol 50MG tablet PO PRN (17:05)
[2019-04-17] MEDS ORDERED: acetaminophen 325mg tablet PO ONE ×2 (17:20→23:25)
--- NOTE | 2019-04-17 17:50 | NUR ---
PER [facility]: PATIENT DOES NOT MEET CRITERIA FOR A MENTAL HEALTH HOLD
--- NOTE | 2019-04-17 18:00 | NUR ---
SPOKE WITH DR RIZZO WHO I TOLD THAT PRINCESS THE [facility] WORKER DOES NOT BELIEVE PATIENT MEETS CRITERIA FOR MENTAL HEALTH HOLD. PATIENT HAS HAD EPISODES OF SYNCOPE PER ER RECORDS HERE SINCE MAY 2014. PATIENT STATES THAT HE HAS ONLY BEEN HAVING DIZZY SPELLS AND FALLING SINCE THIS PAST . PATIENT STATES THAT HIS PMD VAL HAS NOT "WORKED HIM UP" FOR SYNCOPAL EPISODES. SUGGESTED TO PATIENT TO DO A FOOD JOURNAL INCLUDING HIS BLOOD SUGAR AND BLOOD PRESSURE AND BRING IT INTO HIS PMD. PATIENT STATES THAT HE TOOK HIS BLOOD SUGAR "BEFORE" HE GOT OUT OF BED. PATIENT DID NOT REMEMBER HIS BLOOD SUGAR. PATIENT WAS FOUND BY EMS WITH A PILLOW UNDER HUIS HEAD ON THE FLOOR EARLIER TODAY. PATIENT INFORMED THAT DR RIZZO WILL NOT DISCHARGE HIM WITH ULTRAM DUE TO FACT THAT HE STATED TO THE PR HOTLINE THAT HE DID NOT WANT TO LIVE
--- NOTE | 2019-04-17 18:30 | NUR ---
Assumed care of patient, pt sitting up talking animatedly to another patient and eating dinner at this time. RR even and unlabored. Obtained BS and was elevated, however pt on oral Metformin and Lantus, will continue to monitor.
--- NOTE | 2019-04-17 18:58 | NUR ---
PATIENT TALKING WITH PATIENT IN NEXT ROOM. PATIENT REPEATEDLY CALLING OUT FOR WHEN IS THE MENTAL HEALTH WORKER RETURNING AND STATING THAT HE WOULD LIKE TO RETURN TO THE [facility] IN [place] BECAUSE "THEY TOOK GREAT CARE OF ME" PATIENT TOLD PATIENT NEXT DOOR, AUDIBLE TO ME, "I AM NOT SUICIDAL NOT CAUSE I I DON'T WANT TO LIVE, I JUST HAVE TOO MUCH STUFF PILED ON TOP OF ME."
[2019-04-17] MEDS: budesonide 0.5mg/2ml UD nebule IH SCH (20:00)
[2019-04-17] MEDS ORDERED: non-formulary drug (Ranitidine HCl (Zantac) 1 TAB) PO SCH (20:00)
[2019-04-17] MEDS ORDERED: mag hydrox/Alum hydrox/simeth 30ml oral suspension PO ONE (20:15)
--- NOTE | 2019-04-17 20:15 | NUR ---
Pt. reported heart burn and requested, Maalox, PRN order obtained and administered with effectiveness. Will continue to monitor pt.
--- NOTE | 2019-04-17 20:30 | NUR ---
Nursing Note: Pt. compliant with his dinner and all HS medications. Obtained HS BS prior to meal and continues to be slightly elevated, scheduled Lantus and Metformin administered, will continue to monitor. Pt. continues to make many somatic complaints throughout the shift, he states, "I am just scared, I don't know what's going on." Pt's current hold of a 1799, and plan to talk with a medical social worker in the morning is explained multiuple times by this health technical writer. Pt. was finally able to voice understanding. Pt's speech is circumstantial and rapid, and his thought process is tangental, however he is able to be redirected. He currently denies any S/I or plan, however does report that he was having some suicidal thoughts last month with a plan to get hit by a truck r/t pain and multiple medical problems. However, pt. reports that he then came to the realization that he does not want to live without his girlfriend, Lisa. Pt. states, "She is a gem! I have a lot to live for!" Pt. also reports some A/V/PEÑA. He states, "I see shadows and voices that say 'Make one more false move and you're ." Pt. believes this is r/t his service in [place]. Pt. continues to perseverate throughout the shift on obtaining a perscription for his pain medication, Tramodol. He reports that he missed his previous doctor's appointment with his long-time Dr. Cerda because he did not have cab money to obtain a ride to the appointment. Dr. Cerda is now out of town, however pt. has a new appointment scheduled for 04/29/19, but is at this time completely out of Tramadol. Pt. uses a FWW to ambulate r/t generalized weakness due to chronic leg and foot pain. He is able to get up and ambulate to the bathroom, fall precautions are in place.
[2019-04-17] MEDS: insulin glargine (Lantus) pen - multi-dose SQ SCH (20:36)
[2019-04-17] MEDS: metFORMIN 500mg tablet PO SCH (20:37)
[2019-04-17] MEDS: famotidine 10mg tablet PO SCH (20:37)
[2019-04-17] MEDS: busPIRone 5mg tablet PO SCH (20:38)
[2019-04-17] MEDS: ipratropium 0.5 MG/2.5ML nebule IH SCH (20:47)
[2019-04-17] MEDS ORDERED: non-formulary drug (Buspirone Hcl* (Buspar*) 1 TAB) PO SCH (21:00)
--- NOTE | 2019-04-17 21:00 | NUR ---
Pt. remains on a 179 hold, and new order for social sciences chair consult placed by Dr. Leung.
--- NOTE | 2019-04-17 22:29 | NUR ---
Davion from [facility], after assessing pt, stated he would not be placing this pt on a 5150 hold, but the 1798 is still in effect. Per [facility], Pt to be kept overnight so that he may meet with a social human services assistants in the morning to be "connected to resources per the MD". [facility] states MD Xochitl aware of the situation.
--- NOTE | 2019-04-17 22:30 | NUR ---
Pt. awakens and requests HS snack, sandwhich given, pt. eats and returns to sleep. RR even and ulabored.
--- NOTE | 2019-04-17 23:24 | NUR ---
Pt. awakens frequetly from sleep and continues to c/o chronic pain in bilateral legs and feet, obtained order from Dr. Munroe for PRN Tylenol.
[2019-04-17] MEDS ORDERED: potassium Cl 20 mEq SR tablet PO STA ×2 (23:35→23:46)
--- NOTE | 2019-04-17 23:50 | NUR ---
Pt. had slightly decreased potassium blood level, obtained order from Dr. Carter to replace with K-Dur, pt. reports understanding. He continues to c/o chronic bilateral leg pain (groaning in bed at this time) and Tylenol administered as well, will continue to monitor. Pt. perseverating over administration of PRN Tramadol, states, "I can't sleep until I get it."
--- NOTE | 2019-04-18 00:48 | NUR ---
COVERING ANDRAE ONEAL FOR BREAK. PT SLEEPING PEACEFULLY IN BED. NO REQUESTS OR CONCERNS AT THIS TIME. RESPIRATIONS EVEN AND UNLABORED.
[2019-04-18] MEDS: traMADol 50MG tablet PO PRN ×3 (02:05→18:20)
--- NOTE | 2019-04-18 02:08 | NUR ---
Pt. awakens and requests PRN Tramodol for chronic leg pain, administered and will continue to monitor.
[2019-04-18] MEDS: ipratropium 0.5 MG/2.5ML nebule IH SCH ×5 (02:28→20:05)
--- NOTE | 2019-04-18 02:30 | NUR ---
Pt. receives schduled breathig treatment and reports effectiveness. He then ambulates to BR with use of FWW, gait steady, however pt. requires assistance with opening BR door. Pt. returns back to bed afterwards and is assited by this radio script writer to cover self with blankets, he reports contentment states, "Now this is starting to feel like home."
--- NOTE | 2019-04-18 04:28 | NUR ---
Pt. sleeping laying on his left side at this time, appears to be resting comfortably, rr even and unlabored.
--- NOTE | 2019-04-18 05:57 | NUR ---
Pt. continues to sleep, laying on his rt. side at this time, rr even and unlabored. No s/s of distress, will continue to monitor.
[2019-04-18] MEDS: atorvastatin 20mg tablet PO SCH (07:57)
[2019-04-18] MEDS: clopidogrel 75mg tablet PO SCH (07:58)
[2019-04-18] MEDS: metFORMIN 500mg tablet PO SCH ×2 (07:58→21:02)
[2019-04-18] MEDS: busPIRone 5mg tablet PO SCH ×3 (07:58→21:02)
[2019-04-18] MEDS: aspirin 81mg tablet.DR PO SCH (07:58)
[2019-04-18] MEDS: vitamin D (cholecalciferol) 1,000 unit tablet PO SCH (07:58)
[2019-04-18] MEDS: famotidine 10mg tablet PO SCH ×2 (07:58→21:02)
[2019-04-18] MEDS ORDERED: non-formulary drug (Atorvastatin Calcium 1 TABLET) PO SCH (08:00)
[2019-04-18] MEDS: budesonide 0.5mg/2ml UD nebule IH SCH ×2 (08:00→20:00)
--- NOTE | 2019-04-18 08:00 | NUR ---
Pt ambulating to bathroom. Took AM meds without difficulty.
[2019-04-18] MEDS: lisinopril 20mg tablet PO SCH (08:33)
[2019-04-18] MEDS ORDERED: acetaminophen 325mg tablet PO ONE (08:45)
--- NOTE | 2019-04-18 10:00 | NUR ---
recreation worker and county worker at bedside speaking with pt.
--- NOTE | 2019-04-18 11:12 | NUR ---
Davion from [facility] is at bedside assessing patient. No distress observed.
--- NOTE | 2019-04-18 12:00 | NUR ---
Davion from [facility] states that hen would like a new packet sent to [facility] for evaluation and placement of this patient. TSH was not ordered. Called pharmacy and added this on.
--- NOTE | 2019-04-18 12:42 | NUR ---
pt bs 198.
--- NOTE | 2019-04-18 12:45 | NUR ---
Packet faxed to [facility]. Davion from [facility] states that he will try to get the pt placed on [facility] under a voluntary admission, if this will not work, he will write a 5150.
--- NOTE | 2019-04-18 14:00 | NUR ---
Pt is sitting in bed. No distress observed.
--- NOTE | 2019-04-18 15:52 | NUR ---
VA WEATHERIZATION SPECIALIST Leny Amezcua came and visited patient. She states that the patient is currently in transitional housing through [facility]. She states that in the past, pt has declined VA services but states today that he will "need help". She states that there are resources available locally and it would be beneficial to keep pt in the area for "continuity of care when he discharges."
--- NOTE | 2019-04-18 16:24 | NUR ---
Pt had a snack, no distress observed.
--- NOTE | 2019-04-18 17:00 | NUR ---
Pt is getting a breathing treatment
--- NOTE | 2019-04-18 18:59 | NUR ---
BRAYAN PARIS LCSW from the [place] [phone]
--- NOTE | 2019-04-18 19:00 | NUR ---
Assumed care of patient, pt. up eating dinner at this time. PRN Tramodol administered upon request for chronic pain. RR even and unlabored.
--- NOTE | 2019-04-18 21:00 | NUR ---
Pt. compliant with all medications this shift. He presents as animated and talks throughout most of the shift with his roommate, speech remains hyperverbal and rapid. Pt. endorses occassional S/I and reports that he would like help, and would not feel safe returning home at this time. No reports of A/V/PEÑA this shift and pt. does not appear internally preoccupied. No delusional statments made. Pt. continues to use FWW to ambulate with effectiveness r/t genearalized weakness. Fall precautions remain in place.
[2019-04-18] MEDS: insulin glargine (Lantus) pen - multi-dose SQ SCH (21:02)
--- NOTE | 2019-04-18 22:30 | NUR ---
Pt. continues to c/o chronic bilateral leg pain in between PRN doses of Tramadol. Dr. Leung notified, and obtained order for PRN Tylenol Q 6 hr. Pt. reports content.
[2019-04-18] MEDS: acetaminophen 325mg tablet PO PRN (22:39)
--- NOTE | 2019-04-18 23:00 | NUR ---
Pt. laying in bed at this time following consumption of an HS snack, rr remain even and unlabored and no s/s of distress.
--- NOTE | 2019-04-19 01:05 | NUR ---
Pt. is asleep at this time, laying on his right side, rr even and unlabored.
[2019-04-19] MEDS: ipratropium 0.5 MG/2.5ML nebule IH SCH ×2 (02:13→08:58)
[2019-04-19] MEDS: traMADol 50MG tablet PO PRN ×2 (02:29→11:24)
--- NOTE | 2019-04-19 03:31 | NUR ---
Pt. continues to sleep, laying on his left side at this time, makes occassional body adjustments.
[2019-04-19 05:24] VITALS: BP_DIAS 88
--- NOTE | 2019-04-19 05:26 | NUR ---
Pt. sleeping at this time, laying on his left side, rr even and unlabored. Will continue to monitor.
--- NOTE | 2019-04-19 07:06 | NUR ---
Pt. sleeping at this time, laying on his right side, RR even and unlabored. Will continue to monitor.
[2019-04-19] MEDS: clopidogrel 75mg tablet PO SCH (08:00)
[2019-04-19 08:30] VITALS: BP_SYST 120
[2019-04-19] MEDS: lisinopril 20mg tablet PO SCH (08:30)
[2019-04-19] MEDS: atorvastatin 20mg tablet PO SCH (08:30)
[2019-04-19] MEDS: vitamin D (cholecalciferol) 1,000 unit tablet PO SCH (08:30)
[2019-04-19] MEDS: metFORMIN 500mg tablet PO SCH (08:31)
[2019-04-19] MEDS: aspirin 81mg tablet.DR PO SCH (08:31)
[2019-04-19] MEDS: famotidine 10mg tablet PO SCH (08:31)
[2019-04-19] MEDS: busPIRone 5mg tablet PO SCH ×2 (08:31→13:04)
[2019-04-19] MEDS: budesonide 0.5mg/2ml UD nebule IH SCH (08:58)
[2019-04-19] MEDS: acetaminophen 325mg tablet PO PRN (09:18)
--- NOTE | 2019-04-19 09:28 | NUR ---
Pt sitting on the side of his bed. He complains that "breakfast was terrible but everything else has been fantastic." Pt continues to socialize with peers. He is mostly pleasant but often repeatitive with his story telling, appears to have poor short term memory. Will continue to monitor.
--- NOTE | 2019-04-19 12:53 | NUR ---
Pt sitting on the side of his bed talking to his roomate, will continue to monitor.
--- NOTE | 2019-04-19 15:20 | NUR ---
Call from Mariangel from [facility] office, pt is accepted at [facility], accepting time is 1438 by [employer] OFFICER Quin Vang and straddle bug driver should tentatively arrive at 1545 for pickup.
--- NOTE | 2019-04-19 15:30 | NUR ---
Inspection Engineer attempted to contact ROMULO Juan ([phone]) to do a nurse to nurse. No answer.
== END 2019-04-19 16:11 | disposition short-term general hospital (02) ==
LOC: ER 09:55
DX: M79.604 Pain in right leg (principal); R55 Syncope and collapse; F32.9 Major depressive disorder, single episode, unspecified; R45.851 Suicidal ideations; F41.9 Anxiety disorder, unspecified; I25.10 Atherosclerotic heart disease of native coronary artery without angina pectoris; E78.00 Pure hypercholesterolemia, unspecified; I25.2 Old myocardial infarction; J44.9 Chronic obstructive pulmonary disease, unspecified; M19.90 Unspecified osteoarthritis, unspecified site; G89.29 Other chronic pain; F12.90 Cannabis use, unspecified, uncomplicated; I10 Essential (primary) hypertension; E11.42 Type 2 diabetes mellitus with diabetic polyneuropathy; Z95.5 Presence of coronary angioplasty implant and graft; Z90.49 Acquired absence of other specified parts of digestive tract; Z98.890 Other specified postprocedural states; Z86.14 Personal history of Methicillin resistant Staphylococcus aureus infection; Z88.6 Allergy status to analgesic agent; Z88.5 Allergy status to narcotic agent; Z88.0 Allergy status to penicillin; Z79.82 Long term (current) use of aspirin; Z79.899 Other long term (current) drug therapy; Z79.4 Long term (current) use of insulin; W18.30XA Fall on same level, unspecified, initial encounter; Y93.89 Activity, other specified; Y92.89 Other specified places as the place of occurrence of the external cause; Y99.9 Unspecified external cause status
CPT/HCPCS: 36415; 70450; 71045; 73502; 80053; 80305; 80320; 81003; 82948; 83735; 84443; 84484; 85025; 85610; 85730; 86885; 86900; 86901; 93005; 94640; 96361; 96372; 96374; 96375; 99285; J2060; J2270; J7030; 94760; J1815; J7626

== ENCOUNTER 2019-07-06 07:35 | Emergency (ER) | payer MEDICAID, MEDICARE ==
[~2019-07-06] VITALS: Ht 167.6 cm; Wt 86.0 kg
[~2019-07-06 07:35] MED LIST changes: -IPRA4AER IH; -MULT-933 PO; -SERT100T10 PO
--- NOTE | 2019-07-06 08:50 | NUR ---
pt.ambulated from the lobby with no assistance.
[2019-07-06] MEDS ORDERED: GABA-532 PO (08:58)
[2019-07-06] MEDS ORDERED: TRAM50TA2 PO (08:58)
[2019-07-06] MEDS ORDERED: ATOR40TA PO (08:58)
[2019-07-06] MEDS ORDERED: METF500T20 PO (08:58)
[2019-07-06] MEDS ORDERED: ASPI-1265 PO (08:58)
[2019-07-06] MEDS ORDERED: LISI-600 PO (08:58)
[2019-07-06] MEDS ORDERED: BUSP10TA11 PO (08:58)
[2019-07-06] MEDS ORDERED: CLOP75TA15 PO (08:58)
[2019-07-06 09:09] LABS: BASOPHILS # (AUTO) 0.1 X10'3 (0-0.2); BASOPHILS % (AUTO) 0.6 % (0-1); EOSINOPHILS # (AUTO) 0.1 X10'3 (0-0.9); EOSINOPHILS % (AUTO) 0.6 % (0-6); HEMATOCRIT 46.1 % (42.0-52.0); HEMOGLOBIN 15.5 g/dl (14.0-17.9); LYMPHOCYTES % (AUTO) 8.4 % (21-51); MEAN CORPUSCULAR HEMOGLOBIN 30.5 PG (27.0-31.0); MEAN CORPUSCULAR HGB CONC 33.7 g/dL (33.0-36.5); MEAN CORPUSCULAR VOLUME 90.4 FL (78-98); MEAN PLATELET VOLUME 7.4 FL (7.4-10.4); MONOCYTES % (AUTO) 8.5 % (2-12); NEUTROPHILS # (AUTO) 9.4 X10'3 (1.8-7.7); NEUTROPHILS % (AUTO) 81.9 % (42-75); PLATELET COUNT 378 X10'3 (140-440); RED CELL DISTRIBUTION WIDTH 13.7 % (11.5-14.5); WHITE BLOOD COUNT 11.5 X10'3 (4.5-11.0)
--- NOTE | 2019-07-06 09:18 | NUR ---
PT DR WAS DR YANG BUT IS NO LONGER HIS DR. AND IS IN THE PROSSES OF TRYING TO FIND A NEW DR AND IS OUT OF HIS MEDACTION AND WANT A REFILL UNTEL HE FINDS A NEW DR AND WHILE HE IS HERE STATES HE FELL IN THE BATHROOM NOT SURE WHY. HE IS HAVING PAIN IN HIS L LEG REPORT IS THAT HE AMBLUATED FROM THE LOBY WITH OUT ASSISTANCE
[2019-07-06 09:22] VITALS: BP 186/111
[2019-07-06 09:28] LABS: ALANINE AMINOTRANSFERASE 20 U/L (12-78); ALBUMIN 3.9 G/DL (3.4-5.0); ALBUMIN/GLOBULIN RATIO 0.8 (1.1-1.5); ALKALINE PHOSPHATASE 74 IU/L (46-116); ANION GAP 11 (8-16); ASPARTATE AMINO TRANSFERASE 16 U/L (10-37); BILIRUBIN,TOTAL 0.7 MG/DL (0.1-1.0); BLOOD UREA NITROGEN 6 MG/DL (7-18); BUN/CREATININE RATIO 7.7 (5.4-32.0); CALCIUM 9.5 MG/DL (8.5-10.1); CHLORIDE 101 MMOL/L (99-107); CREATININE 0.78 MG/DL (0.60-1.10); GLUCOSE 239 MG/DL (70-104); POTASSIUM 3.7 MMOL/L (3.5-5.1); SODIUM 136 MMOL/L (135-145); TOTAL CARBON DIOXIDE 24.1 MMOL/L (24-32); TOTAL PROTEIN 8.6 G/DL (6.4-8.2); eGFR > 90 ML/MIN
[2019-07-06] MEDS ORDERED: traMADol 50MG tablet PO ONE (09:40)
== END 2019-07-06 10:20 | disposition home or self-care (01) ==
LOC: ER 07:36
DX: M79.604 Pain in right leg (principal); Z76.0 Encounter for issue of repeat prescription; I25.10 Atherosclerotic heart disease of native coronary artery without angina pectoris; E78.00 Pure hypercholesterolemia, unspecified; I25.2 Old myocardial infarction; J44.9 Chronic obstructive pulmonary disease, unspecified; M19.90 Unspecified osteoarthritis, unspecified site; G89.29 Other chronic pain; F12.90 Cannabis use, unspecified, uncomplicated; I10 Essential (primary) hypertension; E11.42 Type 2 diabetes mellitus with diabetic polyneuropathy; Z95.5 Presence of coronary angioplasty implant and graft; Z90.49 Acquired absence of other specified parts of digestive tract; Z98.890 Other specified postprocedural states; Z86.14 Personal history of Methicillin resistant Staphylococcus aureus infection; Z87.01 Personal history of pneumonia (recurrent); Z79.82 Long term (current) use of aspirin; Z79.899 Other long term (current) drug therapy; Z79.4 Long term (current) use of insulin; Z88.6 Allergy status to analgesic agent; Z88.5 Allergy status to narcotic agent; Z88.0 Allergy status to penicillin
CPT/HCPCS: 36415; 80053; 85025; 93005; 99284

== ENCOUNTER 2019-10-30 22:57 | Emergency (ER) | payer OTHER, MEDICARE ==
[~2019-10-30] VITALS: Ht 167.6 cm; Wt 88.0 kg
[~2019-10-30 22:57] MED LIST changes: +ARIP2TAB20 PO; -BUSP10TA11 PO; +BUSP10TA16 PO; +EFF37.5XRC PO; +GABA-532 PO; -TRAM50TA2 PO
[2019-10-31 00:15] LABS: BASOPHILS # (AUTO) 0.1 X10'3 (0-0.2); BASOPHILS % (AUTO) 1.1 % (0-1); EOSINOPHILS # (AUTO) 0.2 X10'3 (0-0.9); EOSINOPHILS % (AUTO) 1.8 % (0-6); HEMATOCRIT 47.1 % (42.0-52.0); HEMOGLOBIN 15.5 g/dl (14.0-17.9); LYMPHOCYTES % (AUTO) 20.5 % (21-51); MEAN CORPUSCULAR HEMOGLOBIN 29.1 PG (27.0-31.0); MEAN CORPUSCULAR VOLUME 88.2 FL (78-98); MEAN PLATELET VOLUME 7.7 FL (7.4-10.4); MONOCYTES # (AUTO) 1.3 X10'3 (0-0.9); MONOCYTES % (AUTO) 13.6 % (2-12); NEUTROPHILS # (AUTO) 6.2 X10'3 (1.8-7.7); PLATELET COUNT 307 X10'3 (140-440); RED BLOOD COUNT 5.34 X10'6 (4.70-6.10); RED CELL DISTRIBUTION WIDTH 14.6 % (11.5-14.5); WHITE BLOOD COUNT 9.9 X10'3 (4.5-11.0)
[2019-10-31 00:32] LABS: ALANINE AMINOTRANSFERASE 21 U/L (12-78); ALBUMIN 3.6 G/DL (3.4-5.0); ALBUMIN/GLOBULIN RATIO 0.9 (1.1-1.5); ALKALINE PHOSPHATASE 73 IU/L (46-116); ANION GAP 10 (8-16); ASPARTATE AMINO TRANSFERASE 15 U/L (10-37); BLOOD UREA NITROGEN 19 MG/DL (7-18); BUN/CREATININE RATIO 17.8 (5.4-32.0); CALCIUM 9.4 MG/DL (8.5-10.1); CHLORIDE 103 MMOL/L (99-107); CREATININE 1.07 MG/DL (0.60-1.10); GLUCOSE 252 MG/DL (70-104); POTASSIUM 3.6 MMOL/L (3.5-5.1); SODIUM 137 MMOL/L (135-145); TOTAL CARBON DIOXIDE 24.1 MMOL/L (24-32); TOTAL PROTEIN 7.8 G/DL (6.4-8.2); eGFR 69 ML/MIN
[2019-10-31 00:58] VITALS: BP 112/78
[2019-11-01] MEDS ORDERED: INSU100V9 SQ (21:44)
[2019-11-01] MEDS ORDERED: AMLO-94 PO (22:45)
[2019-11-01] MEDS ORDERED: AMLO10TA13 PO (22:59)
[2019-11-01] MEDS ORDERED: GABA300C PO (22:59)
[2019-11-01] MEDS ORDERED: CLOP75TA35 PO (22:59)
[2019-11-01] MEDS ORDERED: METO-384 PO (23:02)
[2019-11-01] MEDS ORDERED: BUSP10TA3 PO (23:02)
[2019-11-01] MEDS ORDERED: ARIP20TA10 PO (23:02)
== END 2019-10-31 01:03 | disposition home or self-care (01) ==
LOC: ER 22:58
DX: F31.9 Bipolar disorder, unspecified (principal); E11.42 Type 2 diabetes mellitus with diabetic polyneuropathy; I25.10 Atherosclerotic heart disease of native coronary artery without angina pectoris; E78.00 Pure hypercholesterolemia, unspecified; I10 Essential (primary) hypertension; I25.2 Old myocardial infarction; J44.9 Chronic obstructive pulmonary disease, unspecified; M19.90 Unspecified osteoarthritis, unspecified site; G89.29 Other chronic pain; F41.9 Anxiety disorder, unspecified; F12.90 Cannabis use, unspecified, uncomplicated; Z86.14 Personal history of Methicillin resistant Staphylococcus aureus infection; Z98.61 Coronary angioplasty status; Z90.49 Acquired absence of other specified parts of digestive tract; Z98.890 Other specified postprocedural states; Z60.2 Problems related to living alone; Z88.0 Allergy status to penicillin; Z88.5 Allergy status to narcotic agent; Z88.8 Allergy status to other drugs, medicaments and biological substances; Z79.82 Long term (current) use of aspirin; Z79.4 Long term (current) use of insulin; Z79.899 Other long term (current) drug therapy
CPT/HCPCS: 36415; 71045; 80053; 84484; 85025; 93005; 99285

== ENCOUNTER 2019-11-01 18:34 | Emergency (ER) | payer OTHER, MEDICARE ==
[~2019-11-01] VITALS: Ht 172.7 cm; Wt 88.6 kg
--- NOTE | 2019-11-01 18:56 | NUR ---
Patient arrived by medic unit. Principal System Software Engineer reports this patient was laying on a sidewald. Upon evaluation patient told cooler operator he was having problems with his girlfriend. The patient advised that he had a plan to jump out in front of traffic to kill himself. On arrival here this patiend is loud, rapid speech, he is cussing. 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 The patient is being changed into scrubs. Labs are drawn, we are awaiting a urine sample.
[2019-11-01 19:10] LABS: BASOPHILS # (AUTO) 0.1 X10'3 (0-0.2); EOSINOPHILS # (AUTO) 0.1 X10'3 (0-0.9); MEAN CORPUSCULAR HGB CONC 33.2 g/dL (33.0-36.5); MEAN PLATELET VOLUME 8.1 FL (7.4-10.4); RED CELL DISTRIBUTION WIDTH 14.4 % (11.5-14.5)
[2019-11-01 19:12] LABS: BASOPHILS % (AUTO) 0.6 % (0-1); EOSINOPHILS % (AUTO) 1.3 % (0-6); HEMATOCRIT 46.4 % (42.0-52.0); HEMOGLOBIN 15.4 g/dl (14.0-17.9); LYMPHOCYTES # (AUTO) 1.6 X10'3 (1.1-4.8); LYMPHOCYTES % (AUTO) 14.9 % (21-51); MEAN CORPUSCULAR HEMOGLOBIN 29.4 PG (27.0-31.0); MEAN CORPUSCULAR VOLUME 88.5 FL (78-98); MONOCYTES # (AUTO) 1.1 X10'3 (0-0.9); MONOCYTES % (AUTO) 10.7 % (2-12); NEUTROPHILS # (AUTO) 7.8 X10'3 (1.8-7.7); NEUTROPHILS % (AUTO) 72.5 % (42-75); PLATELET COUNT 297 X10'3 (140-440); RED BLOOD COUNT 5.24 X10'6 (4.70-6.10); WHITE BLOOD COUNT 10.7 X10'3 (4.5-11.0)
[2019-11-01 19:17] LABS: ALANINE AMINOTRANSFERASE 20 U/L (12-78); ALBUMIN 3.5 G/DL (3.4-5.0); ALBUMIN/GLOBULIN RATIO 0.8 (1.1-1.5); ALKALINE PHOSPHATASE 74 IU/L (46-116); ANION GAP 11 (8-16); ASPARTATE AMINO TRANSFERASE 16 U/L (10-37); BILIRUBIN,TOTAL 0.5 MG/DL (0.1-1.0); BLOOD UREA NITROGEN 20 MG/DL (7-18); BUN/CREATININE RATIO 15.6 (5.4-32.0); CHLORIDE 100 MMOL/L (99-107); CREATININE 1.28 MG/DL (0.60-1.10); GLUCOSE 427 MG/DL (70-104); SODIUM 135 MMOL/L (135-145); TOTAL CARBON DIOXIDE 23.6 MMOL/L (24-32); TOTAL PROTEIN 7.9 G/DL (6.4-8.2); eGFR 56 ML/MIN
[2019-11-01 19:22] LABS: POTASSIUM 3.9 MMOL/L (3.5-5.1)
[2019-11-01 19:30] LABS: ETHANOL < 0.010 GM/DL (0.0-0.010)
[2019-11-01 19:53] LABS: CLARITY,URINE CLEAR (Clear); COLOR,URINE YELLOW (Yellow); GLUCOSE, URINE >=1000 mg/dl (Neg); KETONES,URINE NEGATIVE (Neg); LEUKOCYTE ESTERASE ,URINE NEGATIVE (Neg); NITRITES, URINE NEGATIVE (Neg); OCCULT BLOOD,URINE NEGATIVE (Neg); PROTEIN,URINE NEGATIVE (Neg); UROBILINOGEN,URINE 0.2 E.U/dL (0.2-1.0)
[2019-11-01 19:58] LABS: UA COLLECTION TYPE CLN CATCH MIDSTREAM
[2019-11-01 20:10] LABS: BACTERIA,URINE NONE SEEN /HPF (Neg); MUCUS STRANDS NONE SEEN /LPF (Neg); RBC,URINE 0-2 /HPF (0-2); SQUAMOUS EPITHELIAL CELL,UR FEW /LPF (FEW); WBC,URINE 0-4 /HPF (0-4)
[2019-11-01 20:13] LABS: URINE AMPHETAMINE SCREEN NEGATIVE (Neg); URINE BARBITUATE SCREEN NEGATIVE (Neg); URINE BENZODIAZEPINES SCREEN NEGATIVE (Neg); URINE CANNABINOID SCREEN NEGATIVE (Neg); URINE COCAINE SCREEN NEGATIVE (Neg); URINE METHADONE SCREEN NEGATIVE (Neg); URINE OPIATE SCREEN NEGATIVE (Neg); URINE PHENCYCLIDINE SCREEN NEGATIVE (Neg)
--- NOTE | 2019-11-01 21:10 | NUR ---
Patient is calmer now. Patient states a history of PTSD, A-Fib, HTN, Type 2 Diabetes, Asthma. Patient states he doesn't care if he lives. Patient denies any suicide plan.
[2019-11-01] MEDS ORDERED: insulin regular, human 10 units/0.1 ml syringe IV ONE (21:30)
[2019-11-01] MEDS ORDERED: normal saline 1000ML IV soln IVB ONE (21:30)
[2019-11-01] MEDS ORDERED: insulin regular, human U-100 3ml vial - multi-dose IV ONE (21:35)
[2019-11-01] MEDS ORDERED: INSU100V9 SQ (21:44)
--- NOTE | 2019-11-01 21:47 | NUR ---
PT BEING MOVED TO ROOM 14 FOR FLUIDS/INSULIN
--- NOTE | 2019-11-01 21:57 | NUR ---
Patient moved to main ER for IV fluids and Insulin administration.
[2019-11-01] MEDS ORDERED: nitroGLYCERIN 0.4mg SUBLingual tab SL PRN (22:25)
[2019-11-01] MEDS ORDERED: AMLO-94 PO (22:45)
[2019-11-01] MEDS ORDERED: GABA300C PO (22:59)
[2019-11-01] MEDS ORDERED: AMLO10TA13 PO (22:59)
[2019-11-01] MEDS ORDERED: CLOP75TA35 PO (22:59)
[2019-11-01] MEDS ORDERED: ARIP20TA10 PO (23:02)
[2019-11-01] MEDS ORDERED: METO-384 PO (23:02)
[2019-11-01] MEDS ORDERED: BUSP10TA3 PO (23:02)
[2019-11-01] MEDS ORDERED: ipratropium/albuterol 3ml nebule NEB ONE (23:15)
--- NOTE | 2019-11-01 23:34 | NUR ---
DR. BARBOZA STATES THAT THE PATIENT CAN GO BACK OVER TO OVERFLOW.
--- NOTE | 2019-11-02 00:03 | NUR ---
PT WALKED BACK TO OF WITH SITTER.
--- NOTE | 2019-11-02 00:43 | NUR ---
Patient states he has made mistakes in his relationship with his girlfriend. He believes this has contributed to his problems today. The patient was advised of the mental health process, how [facility] would see him tomorrow. The patient exhibits understanding, he continues to want to talk about his relationship.
--- NOTE | 2019-11-02 00:48 | NUR ---
Order received from Dr. Orozco for Neurontin 300 mg now.
[2019-11-02] MEDS ORDERED: gabapentin 400mg capsule PO ONE (00:50)
[2019-11-02] MEDS ORDERED: gabapentin 400mg capsule PO SCH (00:50)
[2019-11-02] MEDS ORDERED: gabapentin 300mg capsule PO ONE ×2 (01:00→06:55)
--- NOTE | 2019-11-02 01:00 | NUR ---
Gabapentin dispensed is a 400 mg capsule. This will be wasted. This commercial insurance underwriter spoke with Lukasz at pharmacy. An order was put in for a 300mg caplule.
--- NOTE | 2019-11-02 01:42 | NUR ---
Patient is sleeping on his right side in bed. In view from the nursing station.
--- NOTE | 2019-11-02 03:25 | NUR ---
Patient is now sleeping quietly on his left side. The bed is in a mid fowlers position.
--- NOTE | 2019-11-02 03:46 | NUR ---
Patient is up to the bathroom. He ambulates without problem. Patient clears his throat and spits in kleenex and commode. Patient back to bed. Patient given another warm blanket.
--- NOTE | 2019-11-02 06:42 | NUR ---
Patient sleeping on left side. No distress observed. Continue to monitor.
[2019-11-02] MEDS: aspirin 81mg tablet.DR PO SCH (07:33)
[2019-11-02] MEDS: clopidogrel 75mg tablet PO SCH (07:34)
[2019-11-02] MEDS: amLODIPine 5mg tablet PO SCH (07:34)
[2019-11-02] MEDS: metoprolol tartrate 25mg tablet PO SCH (07:36)
[2019-11-02] MEDS: metFORMIN 500mg tablet PO SCH ×2 (07:37→20:18)
[2019-11-02] MEDS: gabapentin 100mg capsule PO SCH ×3 (07:37→20:18)
[2019-11-02] MEDS: lisinopril 20mg tablet PO SCH (07:38)
[2019-11-02] MEDS: vitamin D (cholecalciferol) 1,000 unit tablet PO SCH (07:39)
[2019-11-02] MEDS: atorvastatin 20mg tablet PO SCH (07:40)
--- NOTE | 2019-11-02 07:40 | NUR ---
Patient awake and alert and starts telling RN that he is here because he was in [place] and he got in a fight with his girlfriend. Patient denies sucidal ideation but states he needs help. Patient says he would not take his life. Patient talked about how he killed people and it was hard. Patient states people protested the war when he came back and that was hard. Patient needs therapy for PTSD but it doesn't sound like he will meet criteria for a legal hold. Continue to monitor.
[2019-11-02] MEDS: busPIRone 5mg tablet PO SCH ×3 (07:41→20:19)
[2019-11-02] MEDS ORDERED: gabapentin 300mg capsule PO SCH (08:00)
--- NOTE | 2019-11-02 08:19 | NUR ---
[facility] worker with patient. Continue to monitor.
--- NOTE | 2019-11-02 08:53 | NUR ---
Patient placed on a hold. "I won't kill myself but I don't feel safe to go home."
[2019-11-02] MEDS: ipratropium 0.5 MG/2.5ML nebule NEB SCH ×3 (09:13→19:47)
[2019-11-02] MEDS: budesonide 0.5mg/2ml UD nebule IH SCH ×2 (09:14→19:47)
--- NOTE | 2019-11-02 09:26 | NUR ---
Patient getting a respiratory treatment. No distress observed. Continue to monitor.
--- NOTE | 2019-11-02 09:54 | NUR ---
pt resting in bed. primary rn sent to break. pt resting on left side. rr of 16. no s/s of distress or pain. will continue to monitor.
--- NOTE | 2019-11-02 11:10 | NUR ---
Patient sleeping supine. No distress observed. Continue to monitor.
[2019-11-02] MEDS ORDERED: venlafaxine XR 75mg capsule (Q24H) PO ONE (11:20)
--- NOTE | 2019-11-02 12:29 | NUR ---
GORGE Malik ([facility]) added Effexor for depression to patient's meds. When RN gave medication patient stated he was having nightmares. RN was also giving Buspar scheduled for anxiety. Patient calm and in no distress. RN filled patient's pitcher with ice water. Continue to monitor.
--- NOTE | 2019-11-02 12:34 | NUR ---
Patient speaking to RN and suddenly grabs his chest and falls forward. Patient c/o 10/10 CP. RN ordering an EKG and asking Dr to come evaluate patient. Tech to get EKG machine. RN to get vital signs. Continue to monitor.
[2019-11-02] MEDS ORDERED: aspirin 325mg tablet PO ONE (12:40)
[2019-11-02] MEDS ORDERED: LORazepam 1 MG tablet PO ONE (12:40)
--- NOTE | 2019-11-02 12:40 | NUR ---
Dr Carter evaluating patient. Pending results of the EKG. Vital signs are 119/81, 94% oxygen sat, HR 79, RR 18. EKG shows possible atrial fib. taken to Dr to read. Continue to monitor.
--- NOTE | 2019-11-02 12:55 | NUR ---
Patient laying supine after blood drawn, Ativan and 325 Asa given. Patient feeling some chest pressure. Patient states he was having anxiety due to his nightmares and sometimes his "Loop Recorder" will go off. Continue to monitor.
--- NOTE | 2019-11-02 13:04 | NUR ---
Patient eating lunch. No distress observed. Continue to monitor.
--- NOTE | 2019-11-02 14:13 | NUR ---
Patient reclining in bed. No distress observed. Continue to monitor.
--- NOTE | 2019-11-02 15:55 | NUR ---
Patient's second troponin was negative.
--- NOTE | 2019-11-02 16:18 | NUR ---
Patient sleeping. No distress observed. Continue to monitor.
--- NOTE | 2019-11-02 17:35 | NUR ---
Patient is reclining and awake in bed. No distress observed. Continue to monitor.
[2019-11-02] MEDS: ARIPIPRAZOLE 10 MG TABLET PO SCH (20:18)
[2019-11-02] MEDS: insulin glargine (Lantus) pen - multi-dose SQ SCH (20:26)
[2019-11-02] MEDS ORDERED: INSULIN GLARGINE HUM REC ANLOG 12 UNIT SQ SCH (21:00)
[2019-11-03] MEDS: ipratropium 0.5 MG/2.5ML nebule NEB SCH ×4 (02:48→20:40)
--- NOTE | 2019-11-03 06:23 | NUR ---
Patient sleeping on right side. No distress observed. Continue to monitor.
[2019-11-03] MEDS: busPIRone 5mg tablet PO SCH ×3 (07:57→20:12)
[2019-11-03] MEDS: venlafaxine XR 75mg capsule (Q24H) PO SCH (07:58)
[2019-11-03] MEDS: metFORMIN 500mg tablet PO SCH ×2 (07:58→20:12)
[2019-11-03] MEDS: lisinopril 20mg tablet PO SCH (07:58)
[2019-11-03] MEDS: metoprolol tartrate 25mg tablet PO SCH (07:58)
[2019-11-03] MEDS: clopidogrel 75mg tablet PO SCH (07:58)
[2019-11-03] MEDS: aspirin 81mg tablet.DR PO SCH (07:59)
[2019-11-03] MEDS: amLODIPine 5mg tablet PO SCH (07:59)
[2019-11-03] MEDS: vitamin D (cholecalciferol) 1,000 unit tablet PO SCH (07:59)
[2019-11-03] MEDS: gabapentin 100mg capsule PO SCH ×3 (07:59→20:11)
[2019-11-03] MEDS: atorvastatin 20mg tablet PO SCH (07:59)
--- NOTE | 2019-11-03 08:05 | NUR ---
Patient eating breakfast. No distress observed. Continue to monitor.
--- NOTE | 2019-11-03 08:25 | NUR ---
Patient getting his respiratory treatment. No distress observed.
[2019-11-03] MEDS: budesonide 0.5mg/2ml UD nebule IH SCH ×2 (08:35→20:40)
--- NOTE | 2019-11-03 09:51 | NUR ---
Patient sleeping on left side. No distress observed. Continue to monitor.
[2019-11-03] MEDS ORDERED: ondansetron 4mg rapidly disintigrating tab PO PRN (10:35)
--- NOTE | 2019-11-03 11:20 | NUR ---
Patient c/o nausea. RN gave patient Zofran. Continue to monitor.
--- NOTE | 2019-11-03 12:35 | NUR ---
Patient sleeping on right side. No distress observed. Continue to monitor.
--- NOTE | 2019-11-03 13:10 | NUR ---
Patient eating lunch. No distress observed. Continue to monitor.
--- NOTE | 2019-11-03 13:49 | NUR ---
primary RN was sent on lunch break. Pt laying in bed, in no distress at this time.
--- NOTE | 2019-11-03 14:05 | NUR ---
Patient resing on right side. No distress observed. Continue to monitor.
--- NOTE | 2019-11-03 14:09 | NUR ---
Dr Leung evaluating patient. No distress observed. Continue to monitor.
--- NOTE | 2019-11-03 15:11 | NUR ---
Patient reclining in bed, awake. No distress observed. Continue to monitor.
--- NOTE | 2019-11-03 16:50 | NUR ---
Patient awake and laying in bed as chaos in the ED Overflow ensued. Patient appears to be okay. Continue to monitor.
--- NOTE | 2019-11-03 17:00 | NUR ---
Patient asked if it was safe to use the BR. RN advised patient is was. Patient is quiet as he was agruing with another patient earlier. Continue to monitor.
--- NOTE | 2019-11-03 19:00 | NUR ---
Patient is sleeping quietly on his left side.
[2019-11-03] MEDS: ARIPIPRAZOLE 10 MG TABLET PO SCH (20:11)
[2019-11-03] MEDS: insulin glargine (Lantus) pen - multi-dose SQ SCH (20:26)
--- NOTE | 2019-11-03 20:59 | NUR ---
Patient is sleeping quietly in a mid fowlers bed position, he is on his left side. In view from the nursing station.
--- NOTE | 2019-11-03 22:30 | NUR ---
Patient is up to bathroom. He stops to talk with this automatic typewriter inspector on the way to bed. Patient exhips tangential speech. Patient is cooperative. He is redirected to bed.
--- NOTE | 2019-11-04 00:26 | NUR ---
Patient sleeping in a mid fowlers position.
--- NOTE | 2019-11-04 01:59 | NUR ---
Patient sleeping on his left side.
[2019-11-04] MEDS: ipratropium 0.5 MG/2.5ML nebule NEB SCH ×4 (02:50→21:07)
--- NOTE | 2019-11-04 04:05 | NUR ---
This patient awoke, went to bathroom to void, he then returned to void. Patient requested and was given additional ice water.
--- NOTE | 2019-11-04 05:53 | NUR ---
Patient sleeping on his right side.
--- NOTE | 2019-11-04 06:51 | NUR ---
pt resting quietly in bed. then wakes up asking for his gabapentin stating he's having pain in his legs.
[2019-11-04] MEDS: atorvastatin 20mg tablet PO SCH (07:26)
[2019-11-04] MEDS: metoprolol tartrate 25mg tablet PO SCH (07:27)
[2019-11-04] MEDS: clopidogrel 75mg tablet PO SCH (07:27)
[2019-11-04] MEDS: gabapentin 100mg capsule PO SCH ×3 (07:27→20:31)
[2019-11-04] MEDS: venlafaxine XR 75mg capsule (Q24H) PO SCH (07:27)
[2019-11-04] MEDS: vitamin D (cholecalciferol) 1,000 unit tablet PO SCH (07:27)
[2019-11-04] MEDS: lisinopril 20mg tablet PO SCH (07:28)
[2019-11-04] MEDS: busPIRone 5mg tablet PO SCH ×3 (07:28→20:32)
[2019-11-04] MEDS: aspirin 81mg tablet.DR PO SCH (07:28)
[2019-11-04] MEDS: metFORMIN 500mg tablet PO SCH ×2 (07:28→20:31)
[2019-11-04] MEDS: amLODIPine 5mg tablet PO SCH (07:28)
--- NOTE | 2019-11-04 09:25 | NUR ---
spoke to social service coordinator for pt on POC. pt speaking to social service coordinator on phone now.
--- NOTE | 2019-11-04 09:43 | NUR ---
laying in bed, calm, talking on the phone with his girlfriend.
--- NOTE | 2019-11-04 09:54 | NUR ---
pt asking for neb tx. RT paged.
[2019-11-04] MEDS: budesonide 0.5mg/2ml UD nebule IH SCH ×2 (10:05→21:05)
--- NOTE | 2019-11-04 11:07 | NUR ---
resting quietly in bed.
--- NOTE | 2019-11-04 12:43 | NUR ---
resting quietly in bed.
[2019-11-04] MEDS: guaiFENesin 200 MG/10 ML oral syrup UD cup PO PRN ×2 (13:01→21:29)
--- NOTE | 2019-11-04 13:05 | NUR ---
primary nurse on break ,pt scheduled meds given with the lunch as pt up to eat his lunch,explained the action of medication,pt verbalized understanding denies any concern.
--- NOTE | 2019-11-04 15:26 | NUR ---
pt has been resting quietly in bed. got up to the bathroom. pushed the call light in the bathroom. nursing staff came to the bathroom and found pt sitting on the floor. pt states he started to feel dizzy and then sat on the floor. put got up off the floor independently and carfully walked back to his bed with RN assistance. pt states he occationally has these periods where he "blacks out" and gets dizzy, "that's why they took away my license". Pt sat in bed until dizziness passed and they layed down to rest.
--- NOTE | 2019-11-04 16:47 | NUR ---
resting quietly in bed.
--- NOTE | 2019-11-04 17:43 | NUR ---
laying in bed, eating a snack. wondering when he is going to be able to leave here and go somewhere. he states jealousy that another pt on the unit gets to go to [facility]. pt calmed.
--- NOTE | 2019-11-04 18:30 | NUR ---
PT SITTING UP RIGHT AT BEDSIDE EATING DINNER . PLAN OF CAR UPDATED . WILL CONTINUE TO MONITOR AND REASSESS
[2019-11-04] MEDS ORDERED: pantoprazole 40mg Tablet.DR PO STA (18:34)
[2019-11-04] MEDS ORDERED: traMADol 50MG tablet PO ONE (18:35)
--- NOTE | 2019-11-04 18:38 | NUR ---
sitting up on side of bed eating dinner, calm. c/o neuropathy pain in bilat legs and indigestion. Dr. Schneider aware and ordered Protonix and Tramadol for pain (pt takes Tramadol at home). Pt is a diabetic, no previous orders for accu check placed. this RN checked BG this AM and was 156 before breakfast. pt takes Metformin at home. order placed per MD for accu check q12h.
--- NOTE | 2019-11-04 19:30 | NUR ---
PT TALKATIVE . [facility] CONTACT . NO CHANGES TO PREVIOUS ASSESSMENT WILL CONTINUE TO MONITOR AND REASSESS NEEDED
--- NOTE | 2019-11-04 20:30 | NUR ---
PT MEDICATED FOR DISCOMFORT WITH TRAMADOL AND PROTONIX FOR HEART BURN . RELIEF WAS MET AND PATIENT REPORTS FEELING COMFORTBALE AT THIS TIME
[2019-11-04] MEDS: ARIPIPRAZOLE 10 MG TABLET PO SCH (20:31)
--- NOTE | 2019-11-04 21:00 | NUR ---
PAGGED RESP FOR BREATHING TREATMENT
[2019-11-04] MEDS: insulin glargine (Lantus) pen - multi-dose SQ SCH (21:02)
--- NOTE | 2019-11-04 21:15 | NUR ---
RESP AT BEDSIDE FOR TREATMENT
--- NOTE | 2019-11-04 21:33 | NUR ---
PT RESTING ON HIS RIGHT SIDE WITH HOB ELEVATED 30 DEGREES . PT REPORTED HAVING CONGESTION AND DRY COUGH . PT WAS MEDICATED WITH 100 MG OF ROBUTUSSIN PO .
--- NOTE | 2019-11-04 22:00 | NUR ---
PT SLEEPING ON HIS RIGHT SIDE IN BED . RESP EVEN AND UNLABORED WILL CONTINUE TO MONITOR AND REASSESS NEEDED
--- NOTE | 2019-11-04 23:30 | NUR ---
pt up and out of bed to bathroom . pt reports that the trama dol really was helpful for his discomfort and hopes tomarrow he will be able to continue receiving this medication for his leg discomfort . pt then went back to bed layimg supine in bed with hob elevated 30 degrees . pt appropirate and polite with a sense of appropirate humor.
--- NOTE | 2019-11-05 00:14 | NUR ---
pt sleeping supine with hob elevated 30 degrees resp evenand unlabored will continue to monitor and reassess
--- NOTE | 2019-11-05 00:50 | NUR ---
PT AWOKE AND ASKED IF IT WAS 2 AM YET . HE STATED HE HAS A BREATHING TREATMENT DUE AT 02 AM THEN WENT BACK TO SLEEP IN THE SUPINE POSITION
[2019-11-05] MEDS: ipratropium 0.5 MG/2.5ML nebule NEB SCH ×2 (02:24→08:50)
--- NOTE | 2019-11-05 02:30 | NUR ---
RESP AT BEDSIDE FOR BREATHING TREATMENT
--- NOTE | 2019-11-05 03:30 | NUR ---
PT SLEEPING PEACFULLY IN BED WITH HOB ELEVATED 30 DEGREES RESP EVEN AND UNLABORED WILL CONTINUE TO MONITOR AND REASSESS NEEDED
--- NOTE | 2019-11-05 04:30 | NUR ---
pt asleep supine in bed . resp even and unlabored .
--- NOTE | 2019-11-05 05:42 | NUR ---
pt awoke with vs up to bathroom with steady daylin pt reports that was the best sleep he has had in days . pt up at bedside awaiting breakfest at this time
--- NOTE | 2019-11-05 05:44 | NUR ---
pt making bed independently
--- NOTE | 2019-11-05 06:50 | NUR ---
Patient sleeping on his right side. Respirations are even and unlabored.
[2019-11-05] MEDS ORDERED: pantoprazole 40mg Tablet.DR PO SCH (08:00)
[2019-11-05] MEDS: clopidogrel 75mg tablet PO SCH (08:06)
[2019-11-05] MEDS: metFORMIN 500mg tablet PO SCH (08:06)
[2019-11-05] MEDS: aspirin 81mg tablet.DR PO SCH (08:06)
[2019-11-05] MEDS: atorvastatin 20mg tablet PO SCH (08:06)
[2019-11-05] MEDS: venlafaxine XR 75mg capsule (Q24H) PO SCH (08:06)
[2019-11-05] MEDS: vitamin D (cholecalciferol) 1,000 unit tablet PO SCH (08:06)
[2019-11-05] MEDS: amLODIPine 5mg tablet PO SCH (08:07)
[2019-11-05] MEDS: metoprolol tartrate 25mg tablet PO SCH (08:07)
[2019-11-05] MEDS: gabapentin 100mg capsule PO SCH (08:08)
[2019-11-05] MEDS: lisinopril 20mg tablet PO SCH (08:08)
[2019-11-05] MEDS: busPIRone 5mg tablet PO SCH (08:09)
--- NOTE | 2019-11-05 08:46 | NUR ---
Patient's BGM was 163. Patient on Metformin and insulin at night. Patient ate his breakfast. Davion from [facility] here to evaluate patient.
[2019-11-05] MEDS: budesonide 0.5mg/2ml UD nebule IH SCH (08:48)
[2019-11-05] MEDS ORDERED: traMADol 50MG tablet PO ONE (09:05)
--- NOTE | 2019-11-05 09:20 | NUR ---
Breaking primary RN pt is accepting of care, took medications without difficulty, very talkative
--- NOTE | 2019-11-05 11:16 | NUR ---
Patient is being discharged home in stable condition. Called [employer] to take patient to his home.
[2019-11-05 11:17] VITALS: BP 128/84
--- NOTE | 2019-11-05 11:29 | NUR ---
breaking primary RN, pt is sitting at side of bed, calm, awaiting taxi
== END 2019-11-05 11:37 ==
LOC: ER 18:35
DX: R45.851 Suicidal ideations (principal); E11.65 Type 2 diabetes mellitus with hyperglycemia; E11.42 Type 2 diabetes mellitus with diabetic polyneuropathy; I25.10 Atherosclerotic heart disease of native coronary artery without angina pectoris; E78.00 Pure hypercholesterolemia, unspecified; I10 Essential (primary) hypertension; I25.2 Old myocardial infarction; J44.9 Chronic obstructive pulmonary disease, unspecified; M19.90 Unspecified osteoarthritis, unspecified site; G89.29 Other chronic pain; F41.9 Anxiety disorder, unspecified; F31.9 Bipolar disorder, unspecified; F12.90 Cannabis use, unspecified, uncomplicated; Z98.61 Coronary angioplasty status; Z86.14 Personal history of Methicillin resistant Staphylococcus aureus infection; Z90.49 Acquired absence of other specified parts of digestive tract; Z98.890 Other specified postprocedural states; Z60.2 Problems related to living alone; Z88.0 Allergy status to penicillin; Z88.5 Allergy status to narcotic agent; Z88.8 Allergy status to other drugs, medicaments and biological substances; Z79.82 Long term (current) use of aspirin; Z79.4 Long term (current) use of insulin; Z79.899 Other long term (current) drug therapy
CPT/HCPCS: 36415; 80053; 80305; 80320; 81001; 82948; 84443; 84484; 85025; 94640; 96361; 96372; 96374; 99285; J1815; J7030; 94760; J7626

== ENCOUNTER 2019-11-29 18:19 | Emergency (ER) | payer OTHER, MEDICARE ==
[~2019-11-29] VITALS: Ht 172.7 cm; Wt 88.6 kg
[~2019-11-29 18:19] MED LIST changes: +AMLO10TA13 PO; +ARIP20TA10 PO; -ARIP2TAB20 PO; -BUSP10TA16 PO; +BUSP10TA3 PO; -CLOP75TA15 PO; +CLOP75TA35 PO; -EFF37.5XRC PO; -GABA-532 PO; +GABA300C PO; +INSU100V9 SQ; -LANTUS SQ; +METO-384 PO; -RANI-648 PO
--- NOTE | 2019-11-29 19:00 | NUR ---
Pt states that his roommate locked him out of their shared apartment because he owes his roommate $20. [facility]
[2019-11-29 19:02] LABS: CLARITY,URINE CLEAR (Clear); COLOR,URINE YELLOW (Yellow); GLUCOSE, URINE >=1000 mg/dl (Neg); KETONES,URINE NEGATIVE (Neg); LEUKOCYTE ESTERASE ,URINE NEGATIVE (Neg); NITRITES, URINE NEGATIVE (Neg); OCCULT BLOOD,URINE NEGATIVE (Neg); PROTEIN,URINE NEGATIVE (Neg); UROBILINOGEN,URINE 0.2 E.U/dL (0.2-1.0)
[2019-11-29 19:04] LABS: UA COLLECTION TYPE CLN CATCH MIDSTREAM
[2019-11-29 19:06] LABS: BASOPHILS % (AUTO) 0.4 % (0-1); EOSINOPHILS % (AUTO) 0.3 % (0-6); HEMATOCRIT 42.9 % (42.0-52.0); HEMOGLOBIN 14.6 g/dl (14.0-17.9); LYMPHOCYTES # (AUTO) 0.9 X10'3 (1.1-4.8); LYMPHOCYTES % (AUTO) 9.8 % (21-51); MEAN CORPUSCULAR HEMOGLOBIN 29.9 PG (27.0-31.0); MEAN PLATELET VOLUME 7.8 FL (7.4-10.4); MONOCYTES # (AUTO) 0.8 X10'3 (0-0.9); MONOCYTES % (AUTO) 8.4 % (2-12); NEUTROPHILS # (AUTO) 7.7 X10'3 (1.8-7.7); NEUTROPHILS % (AUTO) 81.1 % (42-75); PLATELET COUNT 324 X10'3 (140-440); RED BLOOD COUNT 4.88 X10'6 (4.70-6.10); RED CELL DISTRIBUTION WIDTH 14.4 % (11.5-14.5); WHITE BLOOD COUNT 9.5 X10'3 (4.5-11.0)
[2019-11-29 19:10] LABS: URINE AMPHETAMINE SCREEN NEGATIVE (Neg); URINE BARBITUATE SCREEN NEGATIVE (Neg); URINE BENZODIAZEPINES SCREEN NEGATIVE (Neg); URINE CANNABINOID SCREEN POSITIVE (Neg); URINE COCAINE SCREEN NEGATIVE (Neg); URINE METHADONE SCREEN NEGATIVE (Neg); URINE OPIATE SCREEN NEGATIVE (Neg); URINE PHENCYCLIDINE SCREEN NEGATIVE (Neg)
[2019-11-29 19:13] LABS: BACTERIA,URINE NONE SEEN /HPF (Neg); RBC,URINE 0-2 /HPF (0-2); WBC,URINE 0-4 /HPF (0-4)
[2019-11-29 19:14] LABS: MUCUS STRANDS NONE SEEN /LPF (Neg); SQUAMOUS EPITHELIAL CELL,UR FEW /LPF (FEW)
[2019-11-29] MEDS ORDERED: sucralfate 1gm/10ml UD suspension PO STA (19:22)
[2019-11-29] MEDS ORDERED: LIDOcaine Viscous 15ml cup MM ONE (19:25)
[2019-11-29] MEDS ORDERED: mag hydrox/Alum hydrox/simeth 30ml oral suspension PO ONE (19:25)
[2019-11-29 19:31] LABS: ALANINE AMINOTRANSFERASE 28 U/L (12-78); ALBUMIN 3.3 G/DL (3.4-5.0); ALBUMIN/GLOBULIN RATIO 0.8 (1.1-1.5); ALKALINE PHOSPHATASE 70 IU/L (46-116); ANION GAP 11 (8-16); ASPARTATE AMINO TRANSFERASE 18 U/L (10-37); BILIRUBIN,TOTAL 0.6 MG/DL (0.1-1.0); BLOOD UREA NITROGEN 25 MG/DL (7-18); CALCIUM 8.5 MG/DL (8.5-10.1); CHLORIDE 99 MMOL/L (99-107); CREATININE 1.47 MG/DL (0.60-1.10); ETHANOL < 0.010 GM/DL (0.0-0.010); POTASSIUM 4.4 MMOL/L (3.5-5.1); SODIUM 129 MMOL/L (135-145); TOTAL CARBON DIOXIDE 18.9 MMOL/L (24-32); TOTAL PROTEIN 7.4 G/DL (6.4-8.2); eGFR 47 ML/MIN
[2019-11-29 19:44] LABS: ACETAMINOPHEN < 2.0 UG/ML (10-30)
[2019-11-29 19:47] LABS: GLUCOSE 452 MG/DL (70-104)
--- NOTE | 2019-11-29 19:56 | NUR ---
Pt meds sent to pharmacy.
--- NOTE | 2019-11-29 19:56 | NUR ---
Pt blood sugar = 451. Dr. Bragg notified. Will start pt on home meds.
[2019-11-29] MEDS ORDERED: nitroGLYCERIN 0.4mg SUBLingual tab SL PRN (20:10)
[2019-11-29] MEDS ORDERED: ipratropium 0.5 MG/2.5ML nebule IH SCH (20:35)
[2019-11-29] MEDS ORDERED: metFORMIN 500mg tablet PO ONE (20:55)
[2019-11-29] MEDS ORDERED: busPIRone 5mg tablet PO SCH (21:00)
[2019-11-29] MEDS ORDERED: gabapentin 300mg capsule PO SCH (21:00)
[2019-11-29] MEDS ORDERED: ARIPIPRAZOLE 10 MG TABLET PO SCH (21:00)
[2019-11-29 22:22] VITALS: BP 106/69
[2019-11-30] MEDS ORDERED: vitamin D (cholecalciferol) 1,000 unit tablet PO SCH (08:00)
[2019-11-30] MEDS ORDERED: amLODIPine 5mg tablet PO SCH (08:00)
[2019-11-30] MEDS ORDERED: atorvastatin 20mg tablet PO SCH (08:00)
[2019-11-30] MEDS ORDERED: aspirin 81mg tablet.DR PO SCH (08:00)
[2019-11-30] MEDS ORDERED: lisinopril 20mg tablet PO SCH (08:00)
[2019-11-30] MEDS ORDERED: budesonide 0.5mg/2ml UD nebule IH SCH (08:00)
[2019-11-30] MEDS ORDERED: metoprolol succinate 25mg (24-HOUR) SR. Tablet PO SCH (08:00)
[2019-11-30] MEDS ORDERED: metFORMIN 500mg tablet PO SCH (08:00)
[2019-11-30] MEDS ORDERED: clopidogrel 75mg tablet PO SCH (08:00)
== END 2019-11-29 22:29 | disposition home or self-care (01) ==
LOC: ER 18:20
DX: R45.851 Suicidal ideations (principal); E11.42 Type 2 diabetes mellitus with diabetic polyneuropathy; I25.10 Atherosclerotic heart disease of native coronary artery without angina pectoris; E78.00 Pure hypercholesterolemia, unspecified; I10 Essential (primary) hypertension; I25.2 Old myocardial infarction; J44.9 Chronic obstructive pulmonary disease, unspecified; M19.90 Unspecified osteoarthritis, unspecified site; G89.29 Other chronic pain; F41.9 Anxiety disorder, unspecified; F31.9 Bipolar disorder, unspecified; F12.90 Cannabis use, unspecified, uncomplicated; Z86.14 Personal history of Methicillin resistant Staphylococcus aureus infection; Z98.61 Coronary angioplasty status; Z90.49 Acquired absence of other specified parts of digestive tract; Z98.890 Other specified postprocedural states; Z60.2 Problems related to living alone; Z88.5 Allergy status to narcotic agent; Z88.0 Allergy status to penicillin; Z88.8 Allergy status to other drugs, medicaments and biological substances; Z79.82 Long term (current) use of aspirin; Z79.899 Other long term (current) drug therapy
CPT/HCPCS: 36415; 80053; 80305; 80320; 80329; 81001; 84443; 85025; 94640; 94760; 99284; 99285

== ENCOUNTER 2019-12-03 18:17 | Emergency (ER) | payer OTHER, MEDICARE ==
[~2019-12-03] VITALS: Ht 172.7 cm; Wt 86.4 kg
[~2019-12-03 18:17] MED LIST changes: -INSU100V9 SQ
--- NOTE | 2019-12-03 18:50 | NUR ---
increased RAMSEY to level II as pt is placed on a 1799.
[2019-12-03 19:13] LABS: BASOPHILS # (AUTO) 0.1 X10'3 (0-0.2); BASOPHILS % (AUTO) 0.8 % (0-1); EOSINOPHILS % (AUTO) 0.6 % (0-6); HEMATOCRIT 45.3 % (42.0-52.0); HEMOGLOBIN 15.3 g/dl (14.0-17.9); LYMPHOCYTES # (AUTO) 1.2 X10'3 (1.1-4.8); LYMPHOCYTES % (AUTO) 15.5 % (21-51); MEAN CORPUSCULAR HEMOGLOBIN 29.7 PG (27.0-31.0); MEAN CORPUSCULAR HGB CONC 33.7 g/dL (33.0-36.5); MEAN CORPUSCULAR VOLUME 88.1 FL (78-98); MEAN PLATELET VOLUME 7.9 FL (7.4-10.4); MONOCYTES # (AUTO) 1.3 X10'3 (0-0.9); MONOCYTES % (AUTO) 16.3 % (2-12); NEUTROPHILS # (AUTO) 5.1 X10'3 (1.8-7.7); NEUTROPHILS % (AUTO) 66.8 % (42-75); PLATELET COUNT 338 X10'3 (140-440); RED BLOOD COUNT 5.15 X10'6 (4.70-6.10); RED CELL DISTRIBUTION WIDTH 14.5 % (11.5-14.5); WHITE BLOOD COUNT 7.7 X10'3 (4.5-11.0)
[2019-12-03 19:22] LABS: ALANINE AMINOTRANSFERASE 25 U/L (12-78); ALBUMIN 3.6 G/DL (3.4-5.0); ALBUMIN/GLOBULIN RATIO 0.8 (1.1-1.5); ALKALINE PHOSPHATASE 85 IU/L (46-116); ANION GAP 11 (8-16); ASPARTATE AMINO TRANSFERASE 19 U/L (10-37); BILIRUBIN,TOTAL 0.3 MG/DL (0.1-1.0); BLOOD UREA NITROGEN 18 MG/DL (7-18); BUN/CREATININE RATIO 17.1 (5.4-32.0); CALCIUM 9.2 MG/DL (8.5-10.1); CHLORIDE 91 MMOL/L (99-107); CREATININE 1.05 MG/DL (0.60-1.10); ETHANOL < 0.010 GM/DL (0.0-0.010); GLUCOSE 433 MG/DL (70-104); POTASSIUM 4.4 MMOL/L (3.5-5.1); SODIUM 125 MMOL/L (135-145); TOTAL CARBON DIOXIDE 23.2 MMOL/L (24-32); TOTAL PROTEIN 8.3 G/DL (6.4-8.2); eGFR 70 ML/MIN
[2019-12-03] MEDS ORDERED: insulin regular, human 10 units/0.1 ml syringe SQ ONE (19:30)
[2019-12-03] MEDS ORDERED: normal saline 1000ML IV soln IVB ONE (19:30)
[2019-12-03] MEDS ORDERED: insulin regular, human U-100 3ml vial - multi-dose SQ ONE (19:30)
[2019-12-03 20:04] LABS: URINE AMPHETAMINE SCREEN NEGATIVE (Neg); URINE BARBITUATE SCREEN NEGATIVE (Neg); URINE BENZODIAZEPINES SCREEN NEGATIVE (Neg); URINE CANNABINOID SCREEN POSITIVE (Neg); URINE COCAINE SCREEN NEGATIVE (Neg); URINE METHADONE SCREEN NEGATIVE (Neg); URINE OPIATE SCREEN NEGATIVE (Neg); URINE PHENCYCLIDINE SCREEN NEGATIVE (Neg)
--- NOTE | 2019-12-03 20:06 | NUR ---
PIV PLACED, GIVEN 10 U HUMALIN FOR ACCUCHECK 407. 1 LITER NS INFUSING. PT REQUESTS MALOXX FOR HEARTBURN. STATES HE CALLED 911 FOR SI AND THAT HE AHS HX OF MANY IN PT [facility] ADMISSIONS BOTH THROUGH [facility], [facility]. HE HAS BEEN IN OUR [facility] ALSO AND "I LIKE IT UP THERE". STATES HE USED TO DO [facility] AND HIS GIRLFRIEND "GOT ME OFF DRUGS". HIS GIRLFRIEND IS BIPOLAR AND "A CHALLENGE TO LIVE WITH BUT I LOVE HER". DENIES ANY ETOH OR SMOKING. STATES "MY BLOOD SUGAR HAS NEVER BEEN THAT HIGH" TAKES METFORMIN FOR MANAGEMENT. REPROTS HE HAS SEVERE PTSD FROM BEING INI THE [place] AND HE DID "TWO TOURS IN [place]".
[2019-12-03] MEDS ORDERED: mag hydrox/Alum hydrox/simeth 30ml oral suspension PO ONE (20:20)
--- NOTE | 2019-12-04 00:50 | NUR ---
Pt was asking for a neb tx. Spo2 98% and he is not wheezing. Notified Dr Mckinnon and she states no neb r/t potential covid exposure. Informed to pt of this. He said he will be ok. Pt moved to room 16. Lights dimmed and he was given a blanket and encouraged to sleep. He last said to me that him going to a democrat was really stupid.
--- NOTE | 2019-12-04 01:09 | NUR ---
gave the pt a sandwiche and carton of milk.
--- NOTE | 2019-12-04 01:14 | NUR ---
Pt asking for at least an MDI, Dr Mckinnon asked to check with RT. RT paged.
--- NOTE | 2019-12-04 01:32 | NUR ---
pt is very diminished/ordered mdi
[2019-12-04] MEDS: ALBUTEROL INHALER 1 PUFF/90 MCG INHALER IH PRN ×3 (02:00→19:06)
--- NOTE | 2019-12-04 02:03 | NUR ---
PT GIVEN PROVENTAL MDI, 2 PUFFS. HE IS COOPERATIVE AND VERY CHATTY.
--- NOTE | 2019-12-04 03:48 | NUR ---
pts is sleeping, lying on his left side with blankets covering to his chest. rr 14 and unlabored. staff within view of pt aat.
[2019-12-04] MEDS ORDERED: nitroGLYCERIN 0.4mg SUBLingual tab SL PRN (04:20)
--- NOTE | 2019-12-04 04:37 | NUR ---
pt up to the BR and he came out and said he wants maalox. I asked why and he said "I just up chucked in the BR" I asked him if he wanted zofran for nausea and he said he wants maalox. Will inform .
[2019-12-04] MEDS ORDERED: mag hydrox/Alum hydrox/simeth 30ml oral suspension PO PRN (05:00)
--- NOTE | 2019-12-04 05:26 | NUR ---
Dr. Durán was called and Dr Mckinnon speaking to him.
--- NOTE | 2019-12-04 05:51 | NUR ---
pt came out to apologize to me as he has been nearly 'picking' at me all night long for requests and demanding his covid be done.
--- NOTE | 2019-12-04 06:39 | NUR ---
Assumed care of patient. Patient awake and sitting in bed, quiet. No needs at this time. Addendum: 12/04/19 at 0911 by AKELLAR Patient already on 1798 and currently denies any SI or HI. No audio or visual hallucinations. No apparent distress at this time.
--- NOTE | 2019-12-04 07:04 | NUR ---
Patient denies any SI or HI at this time. Patient requesting breakfast and morning medications. Patient reassured they are getting prepared.
[2019-12-04] MEDS ORDERED: clopidogrel 75mg tablet PO SCH (08:00)
[2019-12-04] MEDS ORDERED: aspirin 81mg tablet.DR PO SCH (08:00)
[2019-12-04] MEDS ORDERED: lisinopril 20mg tablet PO SCH (08:00)
[2019-12-04] MEDS ORDERED: vitamin D (cholecalciferol) 1,000 unit tablet PO SCH (08:00)
[2019-12-04] MEDS ORDERED: amLODIPine 5mg tablet PO SCH (08:00)
[2019-12-04] MEDS ORDERED: UMECLIDINIUM BROMIDE IH SCH (08:00)
[2019-12-04] MEDS ORDERED: atorvastatin 20mg tablet PO SCH (08:00)
[2019-12-04] MEDS ORDERED: FLUTICASONE PROPIONATE IH SCH (08:00)
[2019-12-04] MEDS ORDERED: metoprolol succinate 25mg (24-HOUR) SR. Tablet PO SCH (08:00)
[2019-12-04] MEDS: gabapentin 300mg capsule PO SCH ×3 (08:03→20:21)
[2019-12-04] MEDS: busPIRone 5mg tablet PO SCH ×3 (08:03→20:22)
--- NOTE | 2019-12-04 09:07 | NUR ---
belongings placed in 27 locker 6
--- NOTE | 2019-12-04 09:11 | NUR ---
wallet in lock up in registration
--- NOTE | 2019-12-04 09:15 | NUR ---
assumed care at this time ,pt sitting in bed quietly .no distress noted will cont to monitor .room in front of nsg station.
--- NOTE | 2019-12-04 09:24 | NUR ---
pt explaining why he is here ,pt said he does not want to , i am clean from drugs since 4 months and he has lot of support from her girlfriend .pt waiting for breakfast tray.
--- NOTE | 2019-12-04 09:29 | NUR ---
notified by luis mcdermott that pt meds are not available with pharmacy and the girlfriend won't be able to bring it .pt has other inhaler at bedside which was given earlier .no respirtory distress noted nor the cough.
[2019-12-04] MEDS ORDERED: BUDE10.22 INH (10:27)
[2019-12-04] MEDS ORDERED: ALBU6.7H9 INH (10:27)
[2019-12-04] MEDS ORDERED: ALBUTEROL INHALER 1 PUFF/90 MCG INHALER IH PRN (10:30)
--- NOTE | 2019-12-04 10:57 | NUR ---
Patient ambulated to bed 22 from 16. IV removed, cath intact. Patient tolerated well.
--- NOTE | 2019-12-04 11:05 | NUR ---
Received patient from main ED. Patient presents as calm and cooperative. Patient reports SI, with not plan. Patient is tangential in why he is here "I lost my mom back in 2003 and how his girlfriend [facility] [place]. Patient also states she thought he had Covid-19 due to a cough he had. Pt's Covid test came back negative. Pt. repeats this story to any staff that comes by. Patient is compliant with care. Pt. states he has been up to [facility] and would like to go back up there, "I really don't want to go home." Pt. has DM 2 and is on Metformin. Patients' blood sugars have been in the 300's and pt. 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 Patient denies AH/VH. Patient states he is depressed 6/10.
--- NOTE | 2019-12-04 11:46 | NUR ---
PACKET FAXED TO [facility]
--- NOTE | 2019-12-04 12:05 | NUR ---
Pt. resting comfortably on right side in Semi Levine position. No distress noted, respirations even and unlabored.
[2019-12-04] MEDS ORDERED: mag hydrox/Alum hydrox/simeth 30ml oral suspension PO ONE (12:45)
[2019-12-04] MEDS ORDERED: LIDOcaine Viscous 15ml cup MM PRN (12:45)
[2019-12-04] MEDS ORDERED: sucralfate 1gm/10ml UD suspension PO SCH (12:45)
[2019-12-04] MEDS ORDERED: sucralfate 1gm/10ml UD suspension PO ONE (12:45)
--- NOTE | 2019-12-04 13:40 | NUR ---
Pt's blood sugar was obtained [address] Bragg, he is considering some options for patient. Pt. is alert & oriented. Reports his blood sugars usually run in the 300's.
[2019-12-04] MEDS ORDERED: albuterol 2.5 MG/3 ML nebule NEB SCH (14:00)
--- NOTE | 2019-12-04 14:09 | NUR ---
Patient up on side of bed speaking with [facility] worker. Pt. is calm, but is tangential.
[2019-12-04] MEDS: [UNRECOGNIZED DRUG - OTHER] IH SCH ×2 (14:51→20:00)
--- NOTE | 2019-12-04 17:40 | NUR ---
Received order from Dr. Schneider to add Januvia 50mg PO daily and to give one dose NOW. Reassessed pt's. blood sugar - was 409.
[2019-12-04] MEDS ORDERED: linagliptin 5mg tablet PO SCH (17:53)
[2019-12-04 17:58] VITALS: BP 139/92
[2019-12-04] MEDS ORDERED: [UNRECOGNIZED DRUG - OTHER] IH SCH (20:00)
[2019-12-04] MEDS ORDERED: budesonide 0.5mg/2ml UD nebule IH SCH (20:00)
[2019-12-04] MEDS ORDERED: ARIPIPRAZOLE 10 MG TABLET PO SCH (21:00)
[2019-12-05] MEDS ORDERED: linagliptin 5mg tablet PO SCH (08:00)
== END 2019-12-04 21:19 | disposition home or self-care (01) ==
LOC: ER 18:17
DX: R45.851 Suicidal ideations (principal); R05 Cough; R06.02 Shortness of breath; R50.9 Fever, unspecified; Z20.828 Contact with and (suspected) exposure to other viral communicable diseases; E11.42 Type 2 diabetes mellitus with diabetic polyneuropathy; I25.10 Atherosclerotic heart disease of native coronary artery without angina pectoris; E78.00 Pure hypercholesterolemia, unspecified; I10 Essential (primary) hypertension; I25.2 Old myocardial infarction; J45.909 Unspecified asthma, uncomplicated; J44.9 Chronic obstructive pulmonary disease, unspecified; M19.90 Unspecified osteoarthritis, unspecified site; G89.29 Other chronic pain; F41.9 Anxiety disorder, unspecified; F31.9 Bipolar disorder, unspecified; F12.90 Cannabis use, unspecified, uncomplicated; Z87.01 Personal history of pneumonia (recurrent); Z86.14 Personal history of Methicillin resistant Staphylococcus aureus infection; Z90.49 Acquired absence of other specified parts of digestive tract; Z98.890 Other specified postprocedural states; Z60.2 Problems related to living alone; Z88.5 Allergy status to narcotic agent; Z88.0 Allergy status to penicillin; Z88.8 Allergy status to other drugs, medicaments and biological substances; Z79.82 Long term (current) use of aspirin; Z79.899 Other long term (current) drug therapy
CPT/HCPCS: 36415; 80053; 80305; 80320; 82948; 85025; 87635; 96360; 96372; 99285; C9803; J7030; J1815

== ENCOUNTER 2019-12-04 21:35 | Inpatient (IN) | payer OTHER, MEDICARE ==
[~2019-12-04] VITALS: Ht 172.7 cm; Wt 86.3 kg
[~2019-12-04 21:35] MED LIST changes: +ALBU6.7H9 INH; +BUDE10.22 INH
[2019-12-04] MEDS ORDERED: LORazepam 1 MG tablet PO PRN (22:10)
[2019-12-04] MEDS ORDERED: loperamide 2mg capsule PO PRN (22:10)
[2019-12-04] MEDS ORDERED: NICOTINE POLACRILEX 2 MG LOZENGE BC PRN (22:10)
[2019-12-04] MEDS ORDERED: acetaminophen 325mg tablet PO PRN (22:10)
[2019-12-04] MEDS ORDERED: traZODone 50mg tablet PO PRN (22:10)
[2019-12-04] MEDS ORDERED: magnesium hydroxide 30ml (MOM) UD suspension PO PRN (22:10)
[2019-12-04] MEDS ORDERED: mag hydrox/Alum hydrox/simeth 30ml oral suspension PO PRN (22:10)
[2019-12-04] MEDS ORDERED: nitroGLYCERIN 0.4mg SUBLingual tab SL PRN (22:20)
[2019-12-04 22:39] VITALS: BP 155/93
--- NOTE | 2019-12-04 23:21 | NUR ---
COVID-19 NOTE: Client presented to ED with cough (and reported a fever). Client did not have a fever while in the ED and a rapid Covid-19 test was negative. Client was admitted to [facility] and it was discovered that he had reported being exposed to "a couple of people that tested positive for Covid-19" at a [facility]". This RN questioned the client regarding his exposure. The clients' response was vague and evasive. He stated, "I was at a [place] and I was intoxicated and I heard some people talking about someone having Covid." There were drugs/drinking at the republican. The client could not provide the names of the individuals or details of alleged exposure. The client has been tested twice for Covid-19, both test have been negative. His girlfriend has also tested negative. Dr. Durán was contacted. The client is not a reliable historian (and had a negative Covid-19 test). At this time quarantine is not warranted. Will continue to monitor for s/s.
--- NOTE | 2019-12-05 00:37 | NUR ---
NURSING ADMISSION NOTE Pt arrived on [facility] on 12/04/2019 at 2210. 2RN skin check completed, pt showered and changed into clean clothing. Pt is calm and cooperative with 1:1 assessment and admission process. 5150 Advisement completed. MRSA swap done. Pt is a 69 year old male who was BIB [facility] with with complaints of suicidal ideation which began on 12/02. Patient stated in ER that his suicidal ideation started after getting into an argument with his girlfriend. Patient has a history of past suicide attempts. He stated that his his suicidal thoughts included walking into traffic .Pt denies current suicidal ideation upon entering [facility]. Med Hx: COPD, CAD, HTN, Peripheral neuropathy, MT, Asthma, DM II, +MRSA Surg Hx: Cholecystectomy, Angioplasty, Pt has Loop Recorder. Psych Hx: Depression/Anxiety, Bipolar DO, Substance use DO
[2019-12-05] MEDS: acetaminophen 325mg tablet PO PRN ×2 (04:07→14:18)
[2019-12-05 07:52] VITALS: BP 126/78
[2019-12-05] MEDS: lisinopril 20mg tablet PO SCH (07:56)
[2019-12-05] MEDS: busPIRone 5mg tablet PO SCH ×3 (07:56→20:59)
[2019-12-05] MEDS: aspirin 81mg tablet.DR PO SCH (07:57)
[2019-12-05] MEDS: gabapentin 300mg capsule PO SCH ×3 (07:57→20:59)
[2019-12-05] MEDS: amLODIPine 5mg tablet PO SCH (07:57)
[2019-12-05] MEDS: metoprolol succinate 25mg (24-HOUR) SR. Tablet PO SCH (07:58)
[2019-12-05] MEDS: atorvastatin 20mg tablet PO SCH (07:58)
[2019-12-05] MEDS: clopidogrel 75mg tablet PO SCH (07:58)
[2019-12-05] MEDS: vitamin D (cholecalciferol) 1,000 unit tablet PO SCH (07:59)
[2019-12-05] MEDS ORDERED: metFORMIN 500mg tablet PO SCH (08:00)
[2019-12-05] MEDS ORDERED: nicotine 21mg patch - 24 hr TD SCH (08:00)
[2019-12-05 08:20] LABS: HEMOGLOBIN A1C 11.7 % (4.5-6.2)
[2019-12-05 08:30] LABS: CHOL/HDL RATIO 4.2 (0.00-4.99); CHOLESTEROL 146 MG/DL (0-200); HDL CHOLESTEROL 35 MG/DL (35-60); LDL CHOLESTEROL 95 MG/DL (50-100); TRIGLYCERIDES 96 MG/DL (20-135)
[2019-12-05] MEDS: albuterol 2.5 MG/3 ML nebule NEB PRN ×2 (08:41→20:06)
[2019-12-05] MEDS: budesonide 0.5mg/2ml UD nebule IH SCH ×2 (08:41→20:06)
--- NOTE | 2019-12-05 10:00 | NUR ---
Group Therapy: Process Group This Clinicians goals for this process group were as follows: (1) Ask scaling questions about Patients current anxiety, depression, and irritability symptoms as a check-in. (2) Share psychoeducation about automatic thoughts and cognitive distortions. (3) Share psychoeducation on CBT thought-stopping and, thought-reframing. (4) Discuss strategies for identifying negative, unhelpful, and/or irrational thoughts as quickly as possible to avoid unwanted escalation of mental health symptoms. (5) Process Clients thoughts and reflections on this topic within the group milieu. Patient identified experiencing the following levels of anxiety, depression, and anger/irritability while present in the group milieu. Anxiety: 10 Depression: 10 Anger/irritability: 02/06 Patient presented as open and cooperative within the group milieu. Patient was dressed in nondescript, personal clothing that were appropriate within the milieu. Patient reported that his depression, anxiety, and irritability were very high--noting that all of his symptoms were 10/10. However, per this Clinician's impression, Patient presented as calm, and composed within the group milieu. Patient's thought content was clear, and concrete. Patient's thought process was clear, coherent, and linear. This Clinician did not observe Patient responding to any internal stimuli during the process group. Patient presented as verbally engaged and nonobtrusive within the group milieu. Patient quietly left the process group after about 30 minutes, stating that he was, "Tired," and did not return. Trace Campbell MA, DYLAN Addendum: 12/08/19 at 0830 by Trace Campbell Amended: Links added.
[2019-12-05] MEDS ORDERED: MESSAGE TO PHARMACY PO ONE (11:40)
[2019-12-05] MEDS ORDERED: glucagon, human recombinant 1mg kit SUBCUT PRN (11:40)
[2019-12-05] MEDS ORDERED: dextrose ORAL solution 15 GM/59 ML bottle PO PRN ×2 (11:40)
[2019-12-05] MEDS: insulin Lispro (HumaLOG) vial - multi-dose SQ SCH ×2 (13:36→18:28)
--- NOTE | 2019-12-05 15:17 | NUR ---
PSYCHOSOCIAL ASSESSMENT Mike is a 69 y/o male who was placed on 5150 for danger to self. He presented to the ED with concerns that he may have Covid and for suicidal ideation with a plan to lay in traffic or slit his wrist. Mike is a [place] and currently lives in an apartment through the [place] with 5 or 6 others. He is a high utilizer of crisis services and ED visits with low compliance of treatment. Mike reported he was suicidal after he visited his mother's grave, "I'm trying to deal with my mother's ". He reported his mother in 2003. He also reported a fight with his girlfriend, Lisa, who he often referred to as "Mother Lisa". At the beginning of the interview he stated he was suicidal, later on, he stated, "no, I won't take my life...I couldn't do that to the love of my life". Mike is currently connected to the [facility] and plans on returning to his apartment upon discharge. DYLAN Huertas Addendum: 12/05/19 at 1517 by Sarah COLE Amended: Links added.
--- NOTE | 2019-12-05 15:24 | NUR ---
DISCHARGE PLANNING Mike has a video appt scheduled with Dr Henley at [facility] on Sunday12/08/19 at 10 AM. Quotation Checker will call to re-schedule appt if Mike has not discharged by Sunday. DYLAN Huertas
--- NOTE | 2019-12-05 18:15 | NUR ---
Nursing Progress Note: Mike Legal hold: 5150 Expires 12/06 @ 6235 Client on voluntary/involuntary status for DTS. Report received from Rachael with use of SBAR Why are they here: Patient is a 69 year old male who was BIB [facility] with with complaints of suicidal ideation which began on 12/03/19. Patient stated in ER that his suicidal ideation started after getting into an argument with his girlfriend. Patient has a history of past suicide attempts. He stated that his his suicidal thoughts included walking into traffic. Patient denies current suicidal ideation upon entering [facility]. Assessment What has happened this shift: Patient was sleeping in bed at shift change, respirations even and unlabored. Patient woke up for breakfast and morning vitals. Patient states "I feel groggy, that Ativan stuff knocked me for a loop." Patient ate all meals in group room. Patient states he slept good. Denies SI/AH/VH. "I am depressed not suicidal, just tying to deal with my mom's ." Mother in 2003. Patient is compliant with 1:1 assessment and medications. Patient has a bright affect until he starts talking about his mother. Pt. was started on hyperglycemic protocol as per GORGE Choi. Pt's. AIC level drawn this morning was 11.7 Pt. has an epigastric hernia he has had "for some time," but doesn't cause any issues. Pt. reported diarrhea after lunch and generalized pain, Imodium and Tylenol. Pt. reports Imodium was not effective states "that is why I stopped taking my Metformin." Pt. was restarted on prescription when he was in ER. Per Romain Chairez okay to d/c Metformin. Pt. commented late in shift "I don't want to ." "If something happened to me my girlfriend would probably do it." "She just needed a break from me." Pt. reports he lives at [facility], a resident for [facility]; but have been contemplating moving in together. LEVEL 1 Hyperglycemic Protocol AM 370 Lunch 388 Dinner 104 S/I, H/I: Denies both. "I am depressed, not suicidal." A/VH: Denies both Sleep: Per Sleep Assessment 3 hours. Pt. states he was administered an Ativan that helped him sleep. Pt. napped periodically during shift. ADL's: Independent Group attendance: Did not attend group. Were meds taken: Yes, without hesitation. Any med S/E: Pt. denies, none observed. Mental Status Exam Appearance: Clean, neat, elderly man. Wearing green scrub pants and his personal shirt. Pt. wearing his red Marine ball cap. Eye contact: Good Behavior: Cooperative, calm. Observed walking lam. Up for all meals. Socializes with select peers. Joking around with this lead technical writer and other staff members. Speech: Clear, normal rate/rhythm. Mood: Depressed Affect: Incongruent with mood. Thought process: Linear Thought Content: "I am just trying to deal with my mom's ." Cognition: Intact. Insight: Fair Judgment: Fair Interventions PRN's used: Imodium, Tylenol. Therapeutic interventions: 1:1 therapeutic assessment, active listening with positive feedback, blood glucose monitoring, medication administration/education/effects monitoring, Q15 min safety checks. Restraints/seclusion/emergency medication: N/A Justification of Continued Inpatient Treatment: Patient requires an interruption of current crisis in a safe therapeutic environment until stable.
[2019-12-05 19:58] VITALS: BP 133/82
[2019-12-05] MEDS: ARIPIPRAZOLE 10 MG TABLET PO SCH (20:59)
[2019-12-05] MEDS: insulin glargine (Lantus) pen - multi-dose SQ SCH (21:05)
--- NOTE | 2019-12-06 01:21 | NUR ---
Nursing Progress Note: Mike Legal hold: 5150 Expires 12/06 @ 8458 Client on involuntary status for DTS. Report received from Phillip with use of SBAR Why are they here: Patient is a 69 year old male who was BIB [facility] with with complaints of suicidal ideation which began on 12/03/19. Patient stated in ER that his suicidal ideation started after getting into an argument with his girlfriend. Patient has a history of past suicide attempts. He stated that his his suicidal thoughts included walking into traffic. Patient denies current suicidal ideation upon entering [facility]. Assessment What has happened this shift: Pt was observed out of his room. He was walking up the observation room leaning against the wall as he started to slide off and fall to the floor. At first pt was unresponsive as he did not answer questions being asked but after thoroughly assessing him (vital signs, blood sugar levels, and neuro assessment), determined that he was stable. Pt was assisted onto a wheelchair and to his room. Pt was made aware that his behavior was not accepted it the unit and he demonstrated understanding. When assessing pt, he kept repeating that he played with my emotions. He states that he feels suicidal but know states I dont want to end my life. Thats not the way to go. I know God wouldnt be happy. He states his depression is a 10/10. Talks about the fact that he hasnt gotten over the of his mom. Believes that he feels the way he does do to everything that is going on. Stress building up. Doesnt believe that moving in with his girlfriend is a good idea as he sees that as a future plan. He continues to complain about his provided that saw him today and states that he just wanted to walk out when he was talking to him. States that he feels frustrated when people just can line examiner him without really knowing him and just wants to get help. Pt took all his HS meds without any issues. His HS BG was 206. 12 units of Lantus was administered. Will continue to monitor. S/I, H/I: Endorses S/I with no plan A/VH: Denies both Sleep: Currently sleeping, see sleep assessment for total hours ADL's: Independent Group attendance: No groups during night nurse Were meds taken: Yes Any med S/E: Pt. denies, none observed. Mental Status Exam Appearance: Appropriately dressed elderly man wearing personal clothing Eye contact: Good, direct Behavior: Cooperative, attention seeking following meeting with provider, demanding Speech: Clear, normal rate/rhythm. Mood: Depressed, anxious Affect: Blunted Thought process: Linear Thought Content: Wanting to get help, complaining about his provider, focused about the loss of his mom and relationship with his girlfriend Cognition: Intact Insight: Fair Judgment: Fair Interventions PRN's used: None Therapeutic interventions: 1:1 therapeutic assessment, active listening with positive feedback, blood glucose monitoring, medication administration/education/effects monitoring, Q15 min safety checks. Restraints/seclusion/emergency medication: N/A Justification of Continued Inpatient Treatment: Patient requires an interruption of current crisis in a safe therapeutic environment until stable.
[2019-12-06] MEDS: acetaminophen 325mg tablet PO PRN (06:12)
[2019-12-06] MEDS: metoprolol succinate 25mg (24-HOUR) SR. Tablet PO SCH (07:10)
[2019-12-06] MEDS: amLODIPine 5mg tablet PO SCH (07:11)
[2019-12-06] MEDS: busPIRone 5mg tablet PO SCH ×3 (07:11→20:53)
[2019-12-06] MEDS: lisinopril 20mg tablet PO SCH (07:12)
[2019-12-06] MEDS: clopidogrel 75mg tablet PO SCH (07:12)
[2019-12-06] MEDS: gabapentin 300mg capsule PO SCH ×3 (07:12→20:53)
[2019-12-06] MEDS: vitamin D (cholecalciferol) 1,000 unit tablet PO SCH (07:12)
[2019-12-06] MEDS: atorvastatin 20mg tablet PO SCH (07:12)
[2019-12-06] MEDS: aspirin 81mg tablet.DR PO SCH (07:12)
[2019-12-06 07:18] VITALS: BP 116/70
[2019-12-06] MEDS: insulin Lispro (HumaLOG) vial - multi-dose SQ SCH ×3 (08:22→18:00)
--- NOTE | 2019-12-06 08:44 | NUR ---
MRSA + Lab called. Pts nasal MRSA swab is positive. Pt educated to wash his hands to prevent spread of infection.
[2019-12-06] MEDS: budesonide 0.5mg/2ml UD nebule IH SCH ×2 (09:11→21:07)
--- NOTE | 2019-12-06 09:45 | NUR ---
Pt with T2DM, current A1c is 11.7%, up from 9.8% 09/14 per records. Per RN notes pt reports he stopped taking Metformin d/t GI symptoms from med. Pt currently on hyperglycemic protocol. Pt not appropriate for education at this time. Written DM education faxed to [facility] to be placed in patient chart so it will be available once he is ready for discharge. Will remain available. Addendum: 12/06/19 at [address] Amended: Links added.
[2019-12-06] MEDS: albuterol 2.5 MG/3 ML nebule NEB PRN ×2 (16:56→21:07)
--- NOTE | 2019-12-06 17:33 | NUR ---
Nursing Progress Note: Legal hold: 5150 Expires 12/06 @ 2212 Client on involuntary status for DTS. Report received from Rachael with use of SBAR Why are they here: Patient is a 69 year old male who was BIB RPD with with complaints of suicidal ideation which began on 12/03/19. Patient stated in ER that his suicidal ideation started after getting into an argument with his girlfriend. Patient has a history of past suicide attempts. He stated that his his suicidal thoughts included walking into traffic. Patient denies current suicidal ideation upon entering [facility]. Assessment What has happened this shift: Received patient sleeping in bed on right side at shift change. Pt. woke up prior to breakfast and states he slept well without taking anything. Pt. eats all meals in group room. Patient presents as calm and cooperative. Patient endorses SI, without a plan, I just need some help. Pt. still talks about the of his mother and is just cant deal with it. Pt. was encouraged to attend group, but declined. Pt. is friendly with staff and peers. LEVEL 3 Hyperglycemic Protocol AM 296 Lunch 278 Dinner 124 S/I, H/I: Endorses SI, without a plan. A/VH: Denies both Sleep: Per Sleep Assessment 6.25 hours. Pt took a couple short naps today. ADL's: Independent Group attendance: Did not attend group. Were meds taken: Yes, without hesitation. Any med S/E: Pt. denies, none observed. Mental Status Exam Appearance: Clean, neat, elderly man. Wearing green scrub pants and his personal shirt. Pt. wearing his red Marine ball cap. Eye contact: Good Behavior: Cooperative, calm. Observed walking lam. Up for all meals. Socializes with select peers. Joking around with this mortgage or loan underwriter and other staff members. Speech: Clear, normal rate/rhythm. Mood: Euthymic Affect: Congruent with mood Thought process: Linear Thought Content: Meeting his needs. Cognition: Intact. Insight: Fair Judgment: Fair Interventions PRN's used: None. Therapeutic interventions: 1:1 therapeutic assessment, active listening with positive feedback, blood glucose monitoring, medication administration/education/effects monitoring, Q15 min safety checks. Restraints/seclusion/emergency medication: N/A Justification of Continued Inpatient Treatment: Patient requires an interruption of current crisis in a safe therapeutic environment until stable.
--- NOTE | 2019-12-06 17:36 | NUR ---
ADDENDUM: Pt. is MRSA positive from nares. Pt. was educated several times on the importance of hand washing.
[2019-12-06 19:46] VITALS: BP 108/71
[2019-12-06] MEDS: ARIPIPRAZOLE 10 MG TABLET PO SCH (20:53)
[2019-12-06] MEDS: insulin glargine (Lantus) pen - multi-dose SQ SCH (21:00)
--- NOTE | 2019-12-07 00:53 | NUR ---
Nursing Progress Note: Mike Legal hold: 5150 Expires 12/06 @ 8672 Client on involuntary status for DTS. Report received from Phillip with use of SBAR Why are they here: Patient is a 69 year old male who was BIB RPD with with complaints of suicidal ideation which began on 12/03/19. Patient stated in ER that his suicidal ideation started after getting into an argument with his girlfriend. Patient has a history of past suicide attempts. He stated that his his suicidal thoughts included walking into traffic. Patient denies current suicidal ideation upon entering [facility]. Assessment What has happened this shift: Pt was sitting in a chair outside of rec room during shift change. He was complaining about leg pain (02/06) and was asking when he could get his pain medication. This RN informed him that it was too soon and provided some different pain management. He states that overall he feels better. Denies any S/I, H/I, and is still depressed because he doesnt know how to handle everything that is going on with his girlfriend and still thinking about the loss of his mother. He is hopeful that him and his girlfriend can work things out. He also states that he feels better being on insulin as opposed to being on Metformin and is hoping to get education about how to manage his diabetes this way. His BG this evening was 184. 14 units of Lantus were administered and he did not need any Humalog. Pt received his scheduled breathing treatment as well as prn Albuterol since he was c/o shortness of breath. S/I, H/I: Endorses S/I with no plan A/VH: Denies both Sleep: Currently sleeping, see sleep assessment for total hours ADL's: Independent Group attendance: No groups during maintenance technician 3rd shift Were meds taken: Yes Any med S/E: Pt. denies, none observed. Mental Status Exam Appearance: Appropriately dressed elderly man wearing personal clothing Eye contact: Good, direct Behavior: Cooperative, friendly, social Speech: Clear, normal rate/rhythm. Mood: States he's depressed Affect: Incongruent with mood Thought process: Linear Thought Content: of his mom, getting back with his girlfriend, meds, snacks, pain management Cognition: Intact Insight: Fair Judgment: Fair Interventions PRN's used: None Therapeutic interventions: 1:1 therapeutic assessment, active listening with positive feedback, blood glucose monitoring, medication administration/education/effects monitoring, Q15 min safety checks. Restraints/seclusion/emergency medication: N/A Justification of Continued Inpatient Treatment: Patient requires an interruption of current crisis in a safe therapeutic environment until stable.
[2019-12-07 07:00] VITALS: BP 122/73
[2019-12-07] MEDS: metoprolol succinate 25mg (24-HOUR) SR. Tablet PO SCH (07:33)
[2019-12-07] MEDS: gabapentin 300mg capsule PO SCH ×2 (07:34→12:07)
[2019-12-07] MEDS: busPIRone 5mg tablet PO SCH ×2 (07:34→12:07)
[2019-12-07] MEDS: aspirin 81mg tablet.DR PO SCH (07:34)
[2019-12-07] MEDS: vitamin D (cholecalciferol) 1,000 unit tablet PO SCH (07:34)
[2019-12-07] MEDS: clopidogrel 75mg tablet PO SCH (07:34)
[2019-12-07 07:35] VITALS: BP_SYST 122
[2019-12-07] MEDS: lisinopril 20mg tablet PO SCH (07:35)
[2019-12-07] MEDS: atorvastatin 20mg tablet PO SCH (07:35)
[2019-12-07] MEDS: amLODIPine 5mg tablet PO SCH (07:35)
[2019-12-07] MEDS: budesonide 0.5mg/2ml UD nebule IH SCH (08:15)
[2019-12-07] MEDS: insulin Lispro (HumaLOG) vial - multi-dose SQ SCH (08:21)
[2019-12-07] MEDS ORDERED: GABA300C PO (11:15)
[2019-12-07] MEDS ORDERED: LANTUS SQ (11:15)
[2019-12-07] MEDS ORDERED: BUSP10TA3 PO (11:15)
[2019-12-07] MEDS ORDERED: ARIP20TA10 PO (11:15)
--- NOTE | 2019-12-07 12:10 | NUR ---
DISCHARGE NOTE: Patient is going in to [facility] for follow-up. Patient is discharged in stable condition, denies SI. He has made up with his girlfriend and she is picking him up downstairs. Patient was escorted to the waiting room at 12:10. All medications and belongings were sent with patient.
== END 2019-12-07 12:30 | disposition home or self-care (01) | DRG 881 ==
LOC: ADULT MH 21:35
PROVIDERS: ADMIT Psychiatry & Neurology Psychiatry; ATTEND Psychiatry & Neurology Psychiatry
DX: F32.9 Major depressive disorder, single episode, unspecified (principal); R45.851 Suicidal ideations; G89.29 Other chronic pain; I25.2 Old myocardial infarction; E78.00 Pure hypercholesterolemia, unspecified; E11.42 Type 2 diabetes mellitus with diabetic polyneuropathy; E11.65 Type 2 diabetes mellitus with hyperglycemia; E78.5 Hyperlipidemia, unspecified; F43.12 Post-traumatic stress disorder, chronic; G47.00 Insomnia, unspecified; I10 Essential (primary) hypertension; I25.10 Atherosclerotic heart disease of native coronary artery without angina pectoris; J44.9 Chronic obstructive pulmonary disease, unspecified; F17.200 Nicotine dependence, unspecified, uncomplicated; M19.90 Unspecified osteoarthritis, unspecified site; Z03.818 Encounter for observation for suspected exposure to other biological agents ruled out; Z76.5 Malingerer [conscious simulation]; Z79.4 Long term (current) use of insulin; Z79.51 Long term (current) use of inhaled steroids; Z79.899 Other long term (current) drug therapy; Z88.0 Allergy status to penicillin; Z91.19 Patient's noncompliance with other medical treatment and regimen; Z91.5 Personal history of self-harm; Z95.0 Presence of cardiac pacemaker; Z88.8 Allergy status to other drugs, medicaments and biological substances; Z88.6 Allergy status to analgesic agent; Z90.49 Acquired absence of other specified parts of digestive tract; Z83.3 Family history of diabetes mellitus; Z82.49 Family history of ischemic heart disease and other diseases of the circulatory system; Z81.8 Family history of other mental and behavioral disorders
CPT/HCPCS: 36415; 80061; 82948; 83036; 87081; 94640; 94760; J1815; J7626

== ENCOUNTER 2019-12-14 16:40 | Emergency (ER) | payer OTHER, MEDICARE ==
[~2019-12-14] VITALS: Ht 167.6 cm; Wt 87.3 kg
[~2019-12-14 16:40] MED LIST changes: -FLUT12AE9 IH; +LANTUS SQ; -UMEC62.5 INH
[2019-12-14 17:31] LABS: CLARITY,URINE CLEAR (Clear); COLOR,URINE YELLOW (Yellow); GLUCOSE, URINE >=1000 mg/dl (Neg); KETONES,URINE NEGATIVE (Neg); LEUKOCYTE ESTERASE ,URINE NEGATIVE (Neg); NITRITES, URINE NEGATIVE (Neg); OCCULT BLOOD,URINE NEGATIVE (Neg); PH,URINE 6.5 (4.8-8.0); PROTEIN,URINE NEGATIVE (Neg); UA COLLECTION TYPE VOIDED; UROBILINOGEN,URINE 0.2 E.U/dL (0.2-1.0)
[2019-12-14 17:38] LABS: BACTERIA,URINE NONE SEEN /HPF (Neg); RBC,URINE 0-2 /HPF (0-2); SQUAMOUS EPITHELIAL CELL,UR NONE SEEN /LPF (FEW); WBC,URINE 0-4 /HPF (0-4)
[2019-12-14 18:26] VITALS: BP 144/97
== END 2019-12-14 18:30 | disposition home or self-care (01) ==
LOC: ER 16:41
DX: R05 Cough (principal); I25.10 Atherosclerotic heart disease of native coronary artery without angina pectoris; E78.00 Pure hypercholesterolemia, unspecified; I25.2 Old myocardial infarction; J44.9 Chronic obstructive pulmonary disease, unspecified; M19.90 Unspecified osteoarthritis, unspecified site; G89.29 Other chronic pain; F12.90 Cannabis use, unspecified, uncomplicated; E11.42 Type 2 diabetes mellitus with diabetic polyneuropathy; I10 Essential (primary) hypertension; Z98.890 Other specified postprocedural states; Z95.5 Presence of coronary angioplasty implant and graft; Z90.49 Acquired absence of other specified parts of digestive tract; Z87.01 Personal history of pneumonia (recurrent); Z88.6 Allergy status to analgesic agent; Z88.5 Allergy status to narcotic agent; Z88.0 Allergy status to penicillin; Z79.82 Long term (current) use of aspirin; Z79.899 Other long term (current) drug therapy; Z79.4 Long term (current) use of insulin
CPT/HCPCS: 71045; 71046; 81001; 99284

== ENCOUNTER 2019-12-15 12:23 | Emergency (ER) | payer OTHER, MEDICARE ==
[~2019-12-15] VITALS: Ht 198.1 cm; Wt 87.3 kg
[2019-12-15] MEDS ORDERED: normal saline 1000ML IV soln IV ONE (14:50)
[2019-12-15 15:31] LABS: BASOPHILS # (AUTO) 0.1 X10'3 (0-0.2); BASOPHILS % (AUTO) 0.6 % (0-1); EOSINOPHILS # (AUTO) 0.1 X10'3 (0-0.9); EOSINOPHILS % (AUTO) 0.7 % (0-6); HEMATOCRIT 44.8 % (42.0-52.0); HEMOGLOBIN 14.9 g/dl (14.0-17.9); LYMPHOCYTES # (AUTO) 1.4 X10'3 (1.1-4.8); LYMPHOCYTES % (AUTO) 15.7 % (21-51); MEAN CORPUSCULAR HEMOGLOBIN 29.2 PG (27.0-31.0); MEAN CORPUSCULAR HGB CONC 33.2 g/dL (33.0-36.5); MEAN PLATELET VOLUME 7.6 FL (7.4-10.4); MONOCYTES # (AUTO) 0.8 X10'3 (0-0.9); MONOCYTES % (AUTO) 8.6 % (2-12); NEUTROPHILS # (AUTO) 6.5 X10'3 (1.8-7.7); NEUTROPHILS % (AUTO) 74.4 % (42-75); PLATELET COUNT 348 X10'3 (140-440); RED BLOOD COUNT 5.09 X10'6 (4.70-6.10); RED CELL DISTRIBUTION WIDTH 14.2 % (11.5-14.5); WHITE BLOOD COUNT 8.7 X10'3 (4.5-11.0)
[2019-12-15 15:31] LABS: CLARITY,URINE CLEAR (Clear); COLOR,URINE STRAW (Yellow); GLUCOSE, URINE >=1000 mg/dl (Neg); KETONES,URINE NEGATIVE (Neg); LEUKOCYTE ESTERASE ,URINE NEGATIVE (Neg); NITRITES, URINE NEGATIVE (Neg); OCCULT BLOOD,URINE NEGATIVE (Neg); PH,URINE 6.5 (4.8-8.0); PROTEIN,URINE NEGATIVE (Neg); UROBILINOGEN,URINE 0.2 E.U/dL (0.2-1.0)
[2019-12-15 15:33] LABS: UA COLLECTION TYPE NON-SPECIFIED
[2019-12-15 15:37] LABS: MUCUS STRANDS NONE SEEN /LPF (Neg); SQUAMOUS EPITHELIAL CELL,UR NONE SEEN /LPF (FEW)
[2019-12-15 15:38] LABS: BACTERIA,URINE NONE SEEN /HPF (Neg); RBC,URINE NONE SEEN /HPF (0-2); WBC,URINE 0-4 /HPF (0-4)
[2019-12-15 16:39] LABS: ALANINE AMINOTRANSFERASE 24 U/L (12-78); ALBUMIN 3.2 G/DL (3.4-5.0); ALBUMIN/GLOBULIN RATIO 0.8 (1.1-1.5); ALKALINE PHOSPHATASE 78 IU/L (46-116); ANION GAP 10 (8-16); ASPARTATE AMINO TRANSFERASE 18 U/L (10-37); BILIRUBIN,TOTAL 0.3 MG/DL (0.1-1.0); BLOOD UREA NITROGEN 14 MG/DL (7-18); BUN/CREATININE RATIO 12.5 (5.4-32.0); CALCIUM 8.8 MG/DL (8.5-10.1); CHLORIDE 100 MMOL/L (99-107); CREATININE 1.12 MG/DL (0.60-1.10); GLUCOSE 444 MG/DL (70-104); POTASSIUM 3.8 MMOL/L (3.5-5.1); SODIUM 134 MMOL/L (135-145); TOTAL CARBON DIOXIDE 23.9 MMOL/L (24-32); TOTAL PROTEIN 7.4 G/DL (6.4-8.2); eGFR 65 ML/MIN
[2019-12-15] MEDS ORDERED: iohexol 350MG/ML 100ml bottle IV ONE (17:54)
[2019-12-15] MEDS ORDERED: metoprolol tartrate 1mg/ml inj IV ONE (19:35)
[2019-12-15 20:08] VITALS: BP_DIAS 97
[2019-12-15 20:14] VITALS: BP_SYST 120
== END 2019-12-15 21:11 | disposition home or self-care (01) ==
LOC: ER 12:24
DX: R55 Syncope and collapse (principal); R51 Headache; R05 Cough; R50.9 Fever, unspecified; E11.42 Type 2 diabetes mellitus with diabetic polyneuropathy; I25.10 Atherosclerotic heart disease of native coronary artery without angina pectoris; E78.00 Pure hypercholesterolemia, unspecified; I10 Essential (primary) hypertension; I25.2 Old myocardial infarction; J44.9 Chronic obstructive pulmonary disease, unspecified; M19.90 Unspecified osteoarthritis, unspecified site; G89.29 Other chronic pain; F31.9 Bipolar disorder, unspecified; F41.0 Panic disorder [episodic paroxysmal anxiety]; F12.90 Cannabis use, unspecified, uncomplicated; Z60.2 Problems related to living alone; Z88.5 Allergy status to narcotic agent; Z88.0 Allergy status to penicillin; Z79.4 Long term (current) use of insulin; Z79.82 Long term (current) use of aspirin; Z79.899 Other long term (current) drug therapy
CPT/HCPCS: 36415; 70450; 70496; 70498; 71045; 71275; 74174; 80053; 81001; 83605; 84145; 84484; 85025; 87040; 93005; 96361; 96374; 99285; J7030; Q9967; J3490

== ENCOUNTER 2019-12-17 23:01 | Emergency (ER) | payer OTHER, MEDICARE ==
[~2019-12-17] VITALS: Ht 167.6 cm; Wt 87.2 kg
[2019-12-17 23:05] VITALS: BP 143/82
== END 2019-12-17 23:40 | disposition home or self-care (01) ==
LOC: ER 23:01
DX: F31.9 Bipolar disorder, unspecified (principal); I25.10 Atherosclerotic heart disease of native coronary artery without angina pectoris; E78.00 Pure hypercholesterolemia, unspecified; I25.2 Old myocardial infarction; M19.90 Unspecified osteoarthritis, unspecified site; G89.29 Other chronic pain; F41.9 Anxiety disorder, unspecified; F12.90 Cannabis use, unspecified, uncomplicated; I10 Essential (primary) hypertension; J44.9 Chronic obstructive pulmonary disease, unspecified; E11.42 Type 2 diabetes mellitus with diabetic polyneuropathy; Z95.5 Presence of coronary angioplasty implant and graft; Z90.49 Acquired absence of other specified parts of digestive tract; Z98.890 Other specified postprocedural states; Z88.6 Allergy status to analgesic agent; Z88.5 Allergy status to narcotic agent; Z88.0 Allergy status to penicillin; Z79.82 Long term (current) use of aspirin
CPT/HCPCS: 99283

== ENCOUNTER 2020-01-04 17:32 | Emergency (ER) | payer OTHER, MEDICARE ==
[~2020-01-04] VITALS: Ht 167.6 cm; Wt 94.0 kg
[2020-01-04 17:58] LABS: BASOPHILS # (AUTO) 0.2 X10'3 (0-0.2); BASOPHILS % (AUTO) 1.8 % (0-1); EOSINOPHILS # (AUTO) 0.1 X10'3 (0-0.9); EOSINOPHILS % (AUTO) 0.8 % (0-6); HEMATOCRIT 45.2 % (42.0-52.0); HEMOGLOBIN 15.4 g/dl (14.0-17.9); LYMPHOCYTES # (AUTO) 1.3 X10'3 (1.1-4.8); LYMPHOCYTES % (AUTO) 15.1 % (21-51); MEAN CORPUSCULAR HEMOGLOBIN 29.8 PG (27.0-31.0); MEAN CORPUSCULAR HGB CONC 34.1 g/dL (33.0-36.5); MEAN CORPUSCULAR VOLUME 87.5 FL (78-98); MEAN PLATELET VOLUME 7.7 FL (7.4-10.4); MONOCYTES # (AUTO) 0.8 X10'3 (0-0.9); MONOCYTES % (AUTO) 9.3 % (2-12); NEUTROPHILS # (AUTO) 6.4 X10'3 (1.8-7.7); PLATELET COUNT 327 X10'3 (140-440); RED BLOOD COUNT 5.16 X10'6 (4.70-6.10); RED CELL DISTRIBUTION WIDTH 14.3 % (11.5-14.5); WHITE BLOOD COUNT 8.7 X10'3 (4.5-11.0)
[2020-01-04 18:09] LABS: ALANINE AMINOTRANSFERASE 26 U/L (12-78); ALBUMIN 3.5 G/DL (3.4-5.0); ALBUMIN/GLOBULIN RATIO 0.8 (1.1-1.5); ALKALINE PHOSPHATASE 92 IU/L (46-116); ANION GAP 8 (8-16); ASPARTATE AMINO TRANSFERASE 18 U/L (10-37); BILIRUBIN,TOTAL 0.4 MG/DL (0.1-1.0); BLOOD UREA NITROGEN 16 MG/DL (7-18); BUN/CREATININE RATIO 14.7 (5.4-32.0); CALCIUM 9.1 MG/DL (8.5-10.1); CHLORIDE 96 MMOL/L (99-107); CREATININE 1.09 MG/DL (0.60-1.10); GLUCOSE 368 MG/DL (70-104); POTASSIUM 4.1 MMOL/L (3.5-5.1); SODIUM 130 MMOL/L (135-145); TOTAL CARBON DIOXIDE 26.1 MMOL/L (24-32); TOTAL PROTEIN 8.1 G/DL (6.4-8.2); eGFR 67 ML/MIN
[2020-01-04] MEDS ORDERED: ipratropium/albuterol 3ml nebule NEB ONE (18:10)
[2020-01-04] MEDS ORDERED: normal saline 1000ML IV soln IVB ONE (18:35)
--- NOTE | 2020-01-04 18:35 | NUR ---
pt to receive 1 linter ns and svn x1 now. Then will be DC ready.
--- NOTE | 2020-01-04 18:37 | NUR ---
Pt requested to Registration that we updated Provider that He used to do meth.
[2020-01-04] MEDS ORDERED: levoFLOXACIN 750MG TABLET PO ONE (18:45)
[2020-01-04] MEDS ORDERED: LEVO750T21 PO (18:46)
--- NOTE | 2020-01-04 18:53 | NUR ---
Pt talking with Dr. Schneider now about "something very personal" that he wanted the to know.
--- NOTE | 2020-01-04 19:39 | NUR ---
PTs concerned about his elevated bp , 170/100. Dr. Schneider aware and is ok with pt discharging. Pt is to follow up with PCP. No further med orders. Urinated 650 cc's. Pt now DC ready..
[2020-01-04 19:41] VITALS: BP 177/100
--- NOTE | 2020-01-04 19:57 | NUR ---
PT TAKEN TO [facility] IN . ABLE TO TRANSFER INTO INDEPENDANTLY AND PIVOT ONTO WITH NO PROBLEMS. UPDATED WE ARE PROVIDING HIM A HOSPITAL PAID CAB RIDE HOME, HE REPORTS NO ABILITY TO GET SELF HOME AND NO FUNDS FOR TAXI AND NO FRIENDS TO GET HIM. WHILE PT IN [facility] , SIDDHARTH SCREENER STATED THAT PT APPEARED TO GO LIMP AND SLIDE OUT OF HIS WC AND "DOES NOT LOOK GOOD". I IMMEDIATELY WENT OUT AND PT AWAKE AND APPEARED NORMAL COLOR AND WITH NO DISTRESS. PT ABLE TO TELL ME WHERE HE WAS AND TO INDEPENDANTLY PUT BOTH FEET BACK ON WC LEGS AND SCOOT HIMSELF UP IN THE WC. DR. ENCISO AWARE AND REPROTS PT IS OK TO DC AND THAT PT HAS A HISTORY OF MALINGERING IN ER AND DOING SUCH THINGS THIS TO TRY AND STAY IN HOSPITAL.
[2020-01-05] MEDS ORDERED: PRED20TA PO (06:03)
== END 2020-01-05 04:03 | disposition home or self-care (01) ==
LOC: ER 17:33
DX: J18.9 Pneumonia, unspecified organism (principal); R07.89 Other chest pain; G62.9 Polyneuropathy, unspecified; I25.10 Atherosclerotic heart disease of native coronary artery without angina pectoris; E78.00 Pure hypercholesterolemia, unspecified; I10 Essential (primary) hypertension; I25.2 Old myocardial infarction; J44.9 Chronic obstructive pulmonary disease, unspecified; E11.9 Type 2 diabetes mellitus without complications; M19.90 Unspecified osteoarthritis, unspecified site; F41.9 Anxiety disorder, unspecified; F12.90 Cannabis use, unspecified, uncomplicated; Z98.61 Coronary angioplasty status; Z90.49 Acquired absence of other specified parts of digestive tract; Z98.890 Other specified postprocedural states; Z60.2 Problems related to living alone; Z88.5 Allergy status to narcotic agent; Z88.0 Allergy status to penicillin; Z88.8 Allergy status to other drugs, medicaments and biological substances; Z79.82 Long term (current) use of aspirin; Z79.4 Long term (current) use of insulin; Z79.899 Other long term (current) drug therapy
CPT/HCPCS: 36415; 71045; 80053; 83880; 84484; 85025; 93005; 94640; 96360; 99285; J7030; 94760

== ENCOUNTER 2020-01-05 03:24 | Emergency (ER) | payer OTHER, MEDICARE ==
[~2020-01-05] VITALS: Ht 167.6 cm; Wt 87.3 kg
[~2020-01-05 03:24] MED LIST changes: +LEVO750T21 PO
[2020-01-05] MEDS ORDERED: predniSONE 20 mg tablet PO ONE (04:50)
[2020-01-05] MEDS ORDERED: albuterol 2.5 MG/3 ML nebule NEB ONE (04:50)
--- NOTE | 2020-01-05 05:31 | NUR ---
trop drawn and rozina completed. pt receiving svn now. given prednisone.
--- NOTE | 2020-01-05 05:58 | NUR ---
[facility] (TROP) HEMOLIZED) . DR MOSELEY UPDATED AND LAB REDRAWN AND TAKEN TO LAB.
[2020-01-05] MEDS ORDERED: PRED20TA PO (06:03)
[2020-01-05 08:16] VITALS: BP 135/92
== END 2020-01-05 08:18 | disposition home or self-care (01) ==
LOC: ER 03:25
DX: J44.1 Chronic obstructive pulmonary disease with (acute) exacerbation (principal); J18.9 Pneumonia, unspecified organism; E11.42 Type 2 diabetes mellitus with diabetic polyneuropathy; I25.10 Atherosclerotic heart disease of native coronary artery without angina pectoris; E78.00 Pure hypercholesterolemia, unspecified; I10 Essential (primary) hypertension; I25.2 Old myocardial infarction; J44.9 Chronic obstructive pulmonary disease, unspecified; M19.90 Unspecified osteoarthritis, unspecified site; G89.29 Other chronic pain; F41.9 Anxiety disorder, unspecified; F31.9 Bipolar disorder, unspecified; F12.90 Cannabis use, unspecified, uncomplicated; Z86.14 Personal history of Methicillin resistant Staphylococcus aureus infection; Z01.84 Encounter for antibody response examination; Z98.61 Coronary angioplasty status; Z98.890 Other specified postprocedural states; Z60.2 Problems related to living alone; Z88.0 Allergy status to penicillin; Z88.5 Allergy status to narcotic agent; Z88.8 Allergy status to other drugs, medicaments and biological substances; Z79.82 Long term (current) use of aspirin; Z79.4 Long term (current) use of insulin; Z79.899 Other long term (current) drug therapy
CPT/HCPCS: 36415; 84484; 87635; 93005; 94640; 99285; J7512; 94760

== ENCOUNTER 2020-01-08 13:03 | Emergency (ER) | payer OTHER, MEDICARE ==
[~2020-01-08] VITALS: Ht 167.6 cm; Wt 86.4 kg
[~2020-01-08 13:03] MED LIST changes: +PRED20TA PO
--- NOTE | 2020-01-08 16:50 | NUR ---
Evaluated patient psychiatrically as requested by Dr. Dasilva. Patient had recent admission to [facility] from 12/03-12/06. [facility] focused [facility]. He reports he missed his appointment on 12/08/19 and has not followed up on other services as reccomended after his inpatient treatment. He makes vague suicidal statements stating, "I can't deal with anything" and "I can't trust anyone". He did not have a clear plan for self harm, but did make statements about "walking into the street" when safety planning and outpatient resources were discussed. Patient reports anxiety 11/06. 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 He states he has a supportive girlfriend and an apartment. He secured his own rescue by contacting the police who transported him to the ER and did not initiate a 5150 hold. 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 Reccomend treatment of anxiety with medication and discussion of outpatient follow-up as reccomended after his treatment at [facility]. He may also utilize the [facility] on [facility] for mental health and case management support.
[2020-01-08 19:13] VITALS: BP 138/111
== END 2020-01-08 19:18 | disposition home or self-care (01) ==
LOC: ER 13:03
DX: F41.9 Anxiety disorder, unspecified (principal); F31.9 Bipolar disorder, unspecified; R45.851 Suicidal ideations; E11.42 Type 2 diabetes mellitus with diabetic polyneuropathy; I25.10 Atherosclerotic heart disease of native coronary artery without angina pectoris; E78.00 Pure hypercholesterolemia, unspecified; I10 Essential (primary) hypertension; I25.2 Old myocardial infarction; J44.9 Chronic obstructive pulmonary disease, unspecified; M19.90 Unspecified osteoarthritis, unspecified site; F12.90 Cannabis use, unspecified, uncomplicated; Z86.14 Personal history of Methicillin resistant Staphylococcus aureus infection; Z79.82 Long term (current) use of aspirin; Z79.4 Long term (current) use of insulin; Z79.899 Other long term (current) drug therapy
CPT/HCPCS: 99285

== ENCOUNTER 2020-01-16 15:44 | Emergency (ER) | payer OTHER, MEDICARE ==
[~2020-01-16] VITALS: Ht 167.6 cm; Wt 88.0 kg
--- NOTE | 2020-01-16 16:24 | NUR ---
Home meds taken to pharmacy.
[2020-01-16 16:40] LABS: URINE AMPHETAMINE SCREEN NEGATIVE (Neg); URINE BARBITUATE SCREEN NEGATIVE (Neg); URINE BENZODIAZEPINES SCREEN NEGATIVE (Neg); URINE CANNABINOID SCREEN NEGATIVE (Neg); URINE COCAINE SCREEN NEGATIVE (Neg); URINE METHADONE SCREEN NEGATIVE (Neg); URINE OPIATE SCREEN NEGATIVE (Neg); URINE PHENCYCLIDINE SCREEN NEGATIVE (Neg)
--- NOTE | 2020-01-16 16:51 | NUR ---
Faxed med list to the pharmacy.
[2020-01-16 16:57] LABS: BASOPHILS # (AUTO) 0.1 X10'3 (0-0.2); BASOPHILS % (AUTO) 0.7 % (0-1); EOSINOPHILS # (AUTO) 0.1 X10'3 (0-0.9); EOSINOPHILS % (AUTO) 1.6 % (0-6); HEMATOCRIT 43.6 % (42.0-52.0); HEMOGLOBIN 14.3 g/dl (14.0-17.9); LYMPHOCYTES # (AUTO) 1.1 X10'3 (1.1-4.8); LYMPHOCYTES % (AUTO) 12.6 % (21-51); MEAN CORPUSCULAR HEMOGLOBIN 29.3 PG (27.0-31.0); MEAN CORPUSCULAR HGB CONC 32.9 g/dL (33.0-36.5); MEAN CORPUSCULAR VOLUME 89.2 FL (78-98); MONOCYTES # (AUTO) 0.9 X10'3 (0-0.9); MONOCYTES % (AUTO) 9.6 % (2-12); NEUTROPHILS # (AUTO) 6.7 X10'3 (1.8-7.7); NEUTROPHILS % (AUTO) 75.5 % (42-75); PLATELET COUNT 283 X10'3 (140-440); RED BLOOD COUNT 4.89 X10'6 (4.70-6.10); RED CELL DISTRIBUTION WIDTH 14.7 % (11.5-14.5); WHITE BLOOD COUNT 8.9 X10'3 (4.5-11.0)
[2020-01-16] MEDS ORDERED: insulin regular, human 10 units/0.1 ml syringe SQ ONE (17:00)
[2020-01-16 17:12] LABS: ALANINE AMINOTRANSFERASE 23 U/L (12-78); ALBUMIN 3.3 G/DL (3.4-5.0); ALBUMIN/GLOBULIN RATIO 0.8 (1.1-1.5); ALKALINE PHOSPHATASE 76 IU/L (46-116); ANION GAP 7 (8-16); ASPARTATE AMINO TRANSFERASE 13 U/L (10-37); BILIRUBIN,TOTAL 0.3 MG/DL (0.1-1.0); BLOOD UREA NITROGEN 27 MG/DL (7-18); BUN/CREATININE RATIO 21.8 (5.4-32.0); CALCIUM 8.5 MG/DL (8.5-10.1); CHLORIDE 96 MMOL/L (99-107); CREATININE 1.24 MG/DL (0.60-1.10); ETHANOL < 0.010 GM/DL (0.0-0.010); POTASSIUM 4.1 MMOL/L (3.5-5.1); SODIUM 130 MMOL/L (135-145); TOTAL PROTEIN 7.5 G/DL (6.4-8.2); eGFR 58 ML/MIN
[2020-01-16] MEDS ORDERED: GABA300C PO (17:15)
[2020-01-16] MEDS ORDERED: INSU100V9 SQ (17:15)
[2020-01-16] MEDS ORDERED: METO75TA PO (17:15)
[2020-01-16] MEDS ORDERED: MYC15CR TOP (17:15)
[2020-01-16] MEDS ORDERED: APIX5TAB3 PO (17:15)
[2020-01-16] MEDS ORDERED: BUSP10TA10 PO (17:15)
[2020-01-16] MEDS ORDERED: PRAZ2CAP2 PO (17:15)
[2020-01-16] MEDS ORDERED: HYDR-3686 PO (17:15)
[2020-01-16] MEDS ORDERED: METF-436 PO (17:15)
[2020-01-16] MEDS ORDERED: TIOT18CA3 PO (17:15)
[2020-01-16 17:16] LABS: GLUCOSE 517 MG/DL (70-104)
--- NOTE | 2020-01-16 17:20 | NUR ---
patient up to the bathroom using fww,with steady gait.
[2020-01-16 18:08] LABS: CLARITY,URINE CLEAR (Clear); COLOR,URINE YELLOW (Yellow); GLUCOSE, URINE >=1000 mg/dl (Neg); KETONES,URINE NEGATIVE (Neg); LEUKOCYTE ESTERASE ,URINE NEGATIVE (Neg); NITRITES, URINE NEGATIVE (Neg); OCCULT BLOOD,URINE NEGATIVE (Neg); PROTEIN,URINE NEGATIVE (Neg); UROBILINOGEN,URINE 0.2 E.U/dL (0.2-1.0)
[2020-01-16 18:14] LABS: UA COLLECTION TYPE CLN CATCH MIDSTREAM
[2020-01-16 18:15] LABS: BACTERIA,URINE NONE SEEN /HPF (Neg); RBC,URINE 0-2 /HPF (0-2); SQUAMOUS EPITHELIAL CELL,UR NONE SEEN /LPF (FEW); WBC,URINE NONE SEEN /HPF (0-4)
[2020-01-16] MEDS ORDERED: insulin Lispro (HumaLOG) vial - multi-dose SQ SCH (19:10)
[2020-01-16] MEDS ORDERED: glucagon, human recombinant 1mg kit SUBCUT PRN (19:10)
[2020-01-16] MEDS ORDERED: dextrose ORAL solution 15 GM/59 ML bottle PO PRN ×2 (19:10)
[2020-01-16] MEDS ORDERED: dextrose 50%-water 50ml dispensing syringe IV PRN ×2 (19:10)
[2020-01-16] MEDS ORDERED: MESSAGE TO PHARMACY PO ONE (19:10)
--- NOTE | 2020-01-16 19:39 | NUR ---
Faxed signed med rec to pharmacy and entered verbal orders for hyper/hypo glycemia protocol. Regular insulin not available for administration after dinner. Nightime lantus will be administered HS if appropriate
[2020-01-16] MEDS ORDERED: NYSTATIN CREAM - 30GM TUBE TP PRN (20:25)
[2020-01-16] MEDS ORDERED: nitroGLYCERIN 0.4mg SUBLingual tab SL PRN (20:25)
[2020-01-16] MEDS ORDERED: hydrOXYzine 25 MG tablet PO PRN (20:25)
[2020-01-16] MEDS ORDERED: albuterol 2.5 MG/3 ML nebule NEB PRN (20:25)
[2020-01-16] MEDS ORDERED: prazosin 1mg capsule PO SCH (21:00)
[2020-01-16] MEDS ORDERED: busPIRone 5mg tablet PO SCH (21:00)
[2020-01-16] MEDS ORDERED: insulin glargine (Lantus) pen - multi-dose SQ SCH ×2 (21:00)
[2020-01-16] MEDS ORDERED: gabapentin 400mg capsule PO ONE (21:25)
[2020-01-16] MEDS ORDERED: gabapentin 300mg capsule PO ONE ×2 (21:30)
[2020-01-16] MEDS: busPIRone 5mg tablet PO SCH (21:39)
--- NOTE | 2020-01-16 21:51 | NUR ---
Patient is sleeping quietly, low fowlers position in bed. In direct view from nursing station.
--- NOTE | 2020-01-16 21:57 | NUR ---
[facility] consulted with ED MD. Pt will not be placed on a 5150 and will be discharged tomorrow morning. Pt came to nursing station and stated that when he leaves here he will kill himself. He spoke to [facility] nurse and stated that when he gets home he will kill himself and tonight will be the last time Claudy ([facility]) will see him. Pt is saying he does not want to go home because he does not get along with his roomates.
--- NOTE | 2020-01-16 22:12 | NUR ---
Patient asked to use the phone. He was told that phone use hours are between 8AM and 8PM. Pt returned to bed.
[2020-01-16] MEDS ORDERED: LORazepam 1 MG tablet PO PRN (22:20)
[2020-01-17] MEDS: albuterol 2.5 MG/3 ML nebule NEB SCH ×2 (02:00→07:44)
[2020-01-17 05:21] VITALS: BP_DIAS 60
[2020-01-17] MEDS ORDERED: ipratropium 0.5 MG/2.5ML nebule NEB SCH (08:00)
[2020-01-17] MEDS ORDERED: gabapentin 300mg capsule PO SCH (08:00)
[2020-01-17] MEDS ORDERED: atorvastatin 10mg tablet PO SCH (08:00)
[2020-01-17] MEDS ORDERED: vitamin D (cholecalciferol) 1,000 unit tablet PO SCH (08:00)
[2020-01-17] MEDS ORDERED: aspirin 81mg tablet.DR PO SCH (08:00)
[2020-01-17] MEDS ORDERED: metoprolol tartrate 25mg tablet PO SCH (08:00)
[2020-01-17] MEDS ORDERED: apixaban 5mg tablet PO SCH (08:00)
[2020-01-17] MEDS ORDERED: metFORMIN 500mg tablet PO SCH (08:00)
[2020-01-17] MEDS ORDERED: lisinopril 20mg tablet PO SCH (08:00)
[2020-01-17] MEDS ORDERED: amLODIPine 5mg tablet PO SCH (08:00)
[2020-01-17] MEDS ORDERED: budesonide 0.5mg/2ml UD nebule IH SCH (08:00)
[2020-01-17] MEDS ORDERED: clopidogrel 75mg tablet PO SCH (08:00)
[2020-01-17] MEDS: busPIRone 5mg tablet PO SCH (08:43)
[2020-01-17 08:54] VITALS: BP_SYST 118
[2020-01-17] MEDS ORDERED: ipratropium/albuterol 3ml nebule NEB SCH (09:00)
--- NOTE | 2020-01-17 09:00 | NUR ---
PT CALLED KILO AT [facility] FOR FOLLOW UP VISIT.
--- NOTE | 2020-01-17 09:09 | NUR ---
PT STATES," IM STILL SUICIDAL AND I WOULD LIKE TO TALK TO A DOCTOR."
--- NOTE | 2020-01-17 09:15 | NUR ---
LEFT MESSAGE WITH [facility] AND WILL HAVE DR. PEARSON COME SEE THE PATIENT.
--- NOTE | 2020-01-17 09:33 | NUR ---
PT STATES," IM STILL SUICIDAL, I DONT WANT TO GO HOME YET"
--- NOTE | 2020-01-17 09:54 | NUR ---
PT GIVEN ATIVAN 1MG PO FOR ANXIETY.
--- NOTE | 2020-01-17 10:43 | NUR ---
SPOKE WITH CARLIE AT [facility], AND PT CLEARED TO BE DISCHARGED. SEEN BY KARMA LAST NIGHT AND PT ALLOWED TO SPEND THE NIGHT SINCE HE WAS GIVEN HIS NIGHT TIME MEDICINE. WILL FAX NOTE
[2020-01-17] MEDS ORDERED: CHLO25CA10 PO (10:57)
--- NOTE | 2020-01-17 11:14 | NUR ---
DR. PEARSON STATES, DOESNT NEED TO SEE PT, SINCE [facility] DISCHARGED PT DID NOT MEET CRITERIA.
== END 2020-01-17 11:49 | disposition home or self-care (01) ==
LOC: ER 15:45
DX: E11.65 Type 2 diabetes mellitus with hyperglycemia (principal); R45.851 Suicidal ideations; E11.42 Type 2 diabetes mellitus with diabetic polyneuropathy; I25.10 Atherosclerotic heart disease of native coronary artery without angina pectoris; I10 Essential (primary) hypertension; I25.2 Old myocardial infarction; J44.9 Chronic obstructive pulmonary disease, unspecified; M19.90 Unspecified osteoarthritis, unspecified site; G89.29 Other chronic pain; F31.9 Bipolar disorder, unspecified; F12.90 Cannabis use, unspecified, uncomplicated; Z90.49 Acquired absence of other specified parts of digestive tract; Z98.61 Coronary angioplasty status; Z98.890 Other specified postprocedural states; Z88.0 Allergy status to penicillin; Z88.5 Allergy status to narcotic agent; Z88.8 Allergy status to other drugs, medicaments and biological substances; Z79.01 Long term (current) use of anticoagulants; Z79.4 Long term (current) use of insulin; Z79.899 Other long term (current) drug therapy
CPT/HCPCS: 36415; 80053; 80305; 80320; 81001; 82948; 85025; 94640; 96372; 99285; J1815; Q0177; 94760; J7626

== ENCOUNTER 2020-01-17 22:28 | Emergency (ER) | payer OTHER, MEDICARE ==
[~2020-01-17] VITALS: Ht 167.6 cm; Wt 88.6 kg
[~2020-01-17 22:28] MED LIST changes: +APIX5TAB3 PO; -ARIP20TA10 PO; +BUSP10TA10 PO; -BUSP10TA3 PO; +CHLO25CA10 PO; +HYDR-3686 PO; +INSU100V9 SQ; -LANTUS SQ; -LEVO750T21 PO; +METF-436 PO; -METF-795 PO; -METO-384 PO; +METO75TA PO; +MYC15CR TOP; +PRAZ2CAP2 PO; -PRED20TA PO; +TIOT18CA3 PO
[2020-01-17 22:35] VITALS: BP 140/81
== END 2020-01-17 22:55 | disposition home or self-care (01) ==
LOC: ER 22:29
DX: Z00.00 Encounter for general adult medical examination without abnormal findings (principal); R45.851 Suicidal ideations; E11.42 Type 2 diabetes mellitus with diabetic polyneuropathy; I25.10 Atherosclerotic heart disease of native coronary artery without angina pectoris; E78.00 Pure hypercholesterolemia, unspecified; I10 Essential (primary) hypertension; I25.2 Old myocardial infarction; J44.9 Chronic obstructive pulmonary disease, unspecified; M19.90 Unspecified osteoarthritis, unspecified site; G89.29 Other chronic pain; F31.9 Bipolar disorder, unspecified; F41.9 Anxiety disorder, unspecified; F12.90 Cannabis use, unspecified, uncomplicated; Z98.61 Coronary angioplasty status; Z90.49 Acquired absence of other specified parts of digestive tract; Z98.890 Other specified postprocedural states; Z60.2 Problems related to living alone; Z88.0 Allergy status to penicillin; Z88.5 Allergy status to narcotic agent; Z88.8 Allergy status to other drugs, medicaments and biological substances; Z79.01 Long term (current) use of anticoagulants; Z79.82 Long term (current) use of aspirin; Z79.4 Long term (current) use of insulin; Z79.899 Other long term (current) drug therapy
CPT/HCPCS: 99281

== ENCOUNTER 2020-02-14 16:12 | Emergency (ER) | payer OTHER, MEDICARE ==
[~2020-02-14] VITALS: Ht 185.4 cm; Wt 95.0 kg
[2020-02-14 17:21] LABS: BASOPHILS # (AUTO) 0.1 X10'3 (0-0.2); BASOPHILS % (AUTO) 0.6 % (0-1); EOSINOPHILS # (AUTO) 0.1 X10'3 (0-0.9); EOSINOPHILS % (AUTO) 0.8 % (0-6); HEMATOCRIT 44.2 % (42.0-52.0); HEMOGLOBIN 15.2 g/dl (14.0-17.9); LYMPHOCYTES # (AUTO) 1.2 X10'3 (1.1-4.8); MEAN CORPUSCULAR HEMOGLOBIN 30.1 PG (27.0-31.0); MEAN CORPUSCULAR HGB CONC 34.4 g/dL (33.0-36.5); MEAN CORPUSCULAR VOLUME 87.6 FL (78-98); MEAN PLATELET VOLUME 7.4 FL (7.4-10.4); MONOCYTES # (AUTO) 0.8 X10'3 (0-0.9); MONOCYTES % (AUTO) 9.2 % (2-12); NEUTROPHILS # (AUTO) 6.9 X10'3 (1.8-7.7); NEUTROPHILS % (AUTO) 76.4 % (42-75); PLATELET COUNT 302 X10'3 (140-440); RED BLOOD COUNT 5.04 X10'6 (4.70-6.10)
[2020-02-14 17:26] LABS: ALANINE AMINOTRANSFERASE 19 U/L (12-78); ALBUMIN 3.3 G/DL (3.4-5.0); ALBUMIN/GLOBULIN RATIO 0.8 (1.1-1.5); ALKALINE PHOSPHATASE 78 IU/L (46-116); ANION GAP 10 (8-16); ASPARTATE AMINO TRANSFERASE 11 U/L (10-37); BILIRUBIN,TOTAL 0.4 MG/DL (0.1-1.0); BLOOD UREA NITROGEN 25 MG/DL (7-18); BUN/CREATININE RATIO 22.9 (5.4-32.0); CALCIUM 8.6 MG/DL (8.5-10.1); CHLORIDE 95 MMOL/L (99-107); CREATININE 1.09 MG/DL (0.60-1.10); GLUCOSE 390 MG/DL (70-104); POTASSIUM 4.1 MMOL/L (3.5-5.1); SODIUM 128 MMOL/L (135-145); TOTAL CARBON DIOXIDE 22.9 MMOL/L (24-32); TOTAL PROTEIN 7.2 G/DL (6.4-8.2); eGFR 67 ML/MIN
[2020-02-14 17:43] LABS: ETHANOL < 0.010 GM/DL (0.0-0.010)
[2020-02-14 18:06] LABS: URINE AMPHETAMINE SCREEN NEGATIVE (Neg); URINE BARBITUATE SCREEN NEGATIVE (Neg); URINE BENZODIAZEPINES SCREEN NEGATIVE (Neg); URINE CANNABINOID SCREEN NEGATIVE (Neg); URINE COCAINE SCREEN NEGATIVE (Neg); URINE METHADONE SCREEN NEGATIVE (Neg); URINE OPIATE SCREEN NEGATIVE (Neg); URINE PHENCYCLIDINE SCREEN NEGATIVE (Neg)
--- NOTE | 2020-02-14 21:32 | NUR ---
Patient brought from bed 8 in the main ER. Placed on bed 23. Patient complains of S/I, states he is having nightmares, he is considering jumping out in front of a car. Patient had called 911 and told paramedics he was having chest pain. Patient had a cardiac workup and then was cleared for mental health placement. Patient is alert and oriented X4. He makes direct eye contact. Patient speaks in a regular rate, rhythm, and tone. His affect is flat. Patient was changed into green scrubs, oriented to the overflow unit. His bed is in low position. Patient is cooperative at this time.
--- NOTE | 2020-02-14 22:00 | NUR ---
BREAKING PRIMARY RN; WILL CONT TO MONITOR. PT ABLE TO RECALL CURRENT MED LIST
--- NOTE | 2020-02-14 22:02 | NUR ---
Cholo logan in ED - 02/14/20 at 2202 by DAMARIS BREAKING PRIMARY RN; WILL CONT TO MONITOR.
--- NOTE | 2020-02-14 22:24 | NUR ---
Patient asked about a breathing treatment. No signs of SOB, resp rate normal rate and depth. Lung vang are clear and equal bilaterally with good tidal volume. Slightly diminished at the bilateral bases. Dr. Bragg advise, per MD, no breathing advised.
[2020-02-14] MEDS ORDERED: nitroGLYCERIN 0.4mg SUBLingual tab SL PRN (23:00)
[2020-02-14] MEDS ORDERED: hydrOXYzine 25 MG tablet PO PRN (23:00)
[2020-02-14] MEDS ORDERED: NYSTATIN CREAM - 30GM TUBE TP PRN (23:00)
[2020-02-14] MEDS ORDERED: ALBUTEROL INHALER 1 PUFF/90 MCG INHALER IH PRN (23:00)
[2020-02-14] MEDS ORDERED: insulin glargine (Lantus) pen - multi-dose SQ SCH (23:11)
[2020-02-14] MEDS ORDERED: dextrose 50%-water 50ml dispensing syringe IV PRN ×2 (23:15)
[2020-02-14] MEDS ORDERED: dextrose ORAL solution 15 GM/59 ML bottle PO PRN ×2 (23:15)
[2020-02-14] MEDS ORDERED: glucagon, human recombinant 1mg kit SUBCUT PRN (23:15)
[2020-02-14] MEDS ORDERED: MESSAGE TO PHARMACY PO ONE (23:15)
--- NOTE | 2020-02-14 23:42 | NUR ---
Patient is sleeping quietly. Awaiting a second RN from the main ED to counter Lantus insulin dose. Patient is in direct view from the nursing station.
[2020-02-15] MEDS: gabapentin 300mg capsule PO SCH ×2 (00:56→08:53)
--- NOTE | 2020-02-15 00:59 | NUR ---
BREAKING PRIMARY RN; WILL CONT TO MONITOR.
--- NOTE | 2020-02-15 01:58 | NUR ---
Patient sleeping quietly on his right side.
[2020-02-15] MEDS: ipratropium/albuterol 3ml nebule IH SCH ×2 (03:00→08:20)
--- NOTE | 2020-02-15 03:52 | NUR ---
PATIENT'S PACKET WAS SENT TO [facility].
[2020-02-15 05:06] VITALS: BP_DIAS 81
--- NOTE | 2020-02-15 05:47 | NUR ---
Patient awoke due to other patients creating commotions. He requested to go to bathroom and void. Patient told this was aok. Patient ambulated to bathroom and back with a normal gait. Patient is now attempting to slelep. In direct view from nursing station.
[2020-02-15] MEDS ORDERED: metFORMIN 500mg tablet PO SCH (07:30)
[2020-02-15] MEDS ORDERED: atorvastatin 20mg tablet PO SCH (08:00)
[2020-02-15] MEDS ORDERED: amLODIPine 5mg tablet PO SCH (08:00)
[2020-02-15] MEDS ORDERED: apixaban 5mg tablet PO SCH (08:00)
[2020-02-15] MEDS ORDERED: lisinopril 20mg tablet PO SCH (08:00)
[2020-02-15] MEDS ORDERED: chlordiazePOXIDE 25mg capsule PO SCH (08:00)
[2020-02-15] MEDS ORDERED: clopidogrel 75mg tablet PO SCH (08:00)
[2020-02-15] MEDS ORDERED: busPIRone 5mg tablet PO SCH (08:00)
[2020-02-15] MEDS ORDERED: aspirin 81mg tablet.DR PO SCH (08:00)
[2020-02-15] MEDS ORDERED: metoprolol tartrate 25mg tablet PO SCH (08:00)
--- NOTE | 2020-02-15 08:02 | NUR ---
PAGED RESPIRATORY FOR BREATHING TREATMENT REQUESTED BY PT.
--- NOTE | 2020-02-15 08:13 | NUR ---
RT ARRIVES FOR BREATHING TREATMENT, PT SITTING AT BEDSIDE WITH BREAKFAST TRAY AFTER CHECKING BS.
--- NOTE | 2020-02-15 08:41 | NUR ---
THE CLINITIAN FROM [facility] IN TO [facility].
--- NOTE | 2020-02-15 08:50 | NUR ---
Wilder from mental health talked with patient patient be came very irritated. Wilder from mental health said he would be back later.
[2020-02-15 08:56] VITALS: BP_SYST 120
[2020-02-15] MEDS ORDERED: budesonide 0.5mg/2ml UD nebule IH SCH (09:00)
--- NOTE | 2020-02-15 10:14 | NUR ---
AFTER [facility] EVALUATION PT IS BEING DC'D. RETRIEVE PT'S MEDICATIONS FOR PHARMACY. SECURTY CALLED FOR STANDBY, PT GIVEN CLOTHES, [facility] CALLED FOR TRANSPORT. SECURITY ESCORTS PT OUT TO LOBBY. PT TAKEN OUT TO THE LOBBY VIA W/C FOR SAFETY.
[2020-02-15] MEDS ORDERED: prazosin 1mg capsule PO SCH (21:00)
== END 2020-02-15 10:15 | disposition home or self-care (01) ==
LOC: ER 16:13
DX: R45.851 Suicidal ideations (principal); R07.89 Other chest pain; R19.7 Diarrhea, unspecified; E11.42 Type 2 diabetes mellitus with diabetic polyneuropathy; I25.10 Atherosclerotic heart disease of native coronary artery without angina pectoris; E78.00 Pure hypercholesterolemia, unspecified; I25.2 Old myocardial infarction; J44.9 Chronic obstructive pulmonary disease, unspecified; M19.90 Unspecified osteoarthritis, unspecified site; G89.29 Other chronic pain; F41.9 Anxiety disorder, unspecified; F31.9 Bipolar disorder, unspecified; F12.90 Cannabis use, unspecified, uncomplicated; Z90.49 Acquired absence of other specified parts of digestive tract; Z98.61 Coronary angioplasty status; Z98.890 Other specified postprocedural states; Z88.0 Allergy status to penicillin; Z88.5 Allergy status to narcotic agent; Z88.8 Allergy status to other drugs, medicaments and biological substances; Z79.01 Long term (current) use of anticoagulants; Z79.82 Long term (current) use of aspirin; Z79.4 Long term (current) use of insulin; Z79.899 Other long term (current) drug therapy
CPT/HCPCS: 36415; 80053; 80305; 80320; 82948; 83036; 84484; 85025; 93005; 94640; 94760; 96372; 99285; J1815; J7626

== ENCOUNTER 2020-02-20 12:49 | Emergency (ER) | payer MEDICARE ==
[~2020-02-20] VITALS: Ht 167.6 cm; Wt 89.5 kg
[~2020-02-20 12:49] MED LIST changes: -CHLO25CA10 PO
--- NOTE | 2020-02-20 13:30 | NUR ---
PT EVALUATED AT THIS TIME PLACE DIN ROOM 23 ,PT STATED THAT HE WAS D/C FROM [facility] TODAY AND WAS WAITING FOR CAB TO PICK HIM UP ,PT THEN WENT TO USE RESTROOM AND WAS NOT ABLE TO MAKE IT AND FELL ON THE HALLWAY ,UNWITNESS FALL ,ASKED THE PT DID HE HIT HIS HEAD ,PT STATED THAT HE HIT HIS OCCIPUT REGION WHEN ASKED AGAIN PT SAID HE HIT HIS RGT TEMPORAL REGION ,PT STATED THAT HE LOSS COUNSCIOUNESS .PT ON BLD THINNER PLAVIX.
--- NOTE | 2020-02-20 14:35 | NUR ---
PT ASLEEPING ON HIS RGT LATERAL POSITION,PT IS SNORING IN BTW.RR WNL.WAITING FOR PROVIDER TO SEE HIM.NO DISTRESS NOTED ,WILL CONT TO MONITOR.
--- NOTE | 2020-02-20 14:58 | NUR ---
GORGE NARVAEZ AT BEDSIDE FOR EVALUATION.
--- NOTE | 2020-02-20 15:17 | NUR ---
LAB AT BEDSIDE.
[2020-02-20 15:42] LABS: BASOPHILS % (AUTO) 0.6 % (0-1); EOSINOPHILS # (AUTO) 0.1 X10'3 (0-0.9); EOSINOPHILS % (AUTO) 1.3 % (0-6); HEMATOCRIT 46.8 % (42.0-52.0); HEMOGLOBIN 15.7 g/dl (14.0-17.9); LYMPHOCYTES # (AUTO) 1.3 X10'3 (1.1-4.8); LYMPHOCYTES % (AUTO) 14.8 % (21-51); MEAN CORPUSCULAR HEMOGLOBIN 30.1 PG (27.0-31.0); MEAN CORPUSCULAR HGB CONC 33.5 g/dL (33.0-36.5); MEAN CORPUSCULAR VOLUME 89.7 FL (78-98); MEAN PLATELET VOLUME 7.3 FL (7.4-10.4); MONOCYTES % (AUTO) 11.4 % (2-12); NEUTROPHILS # (AUTO) 6.3 X10'3 (1.8-7.7); NEUTROPHILS % (AUTO) 71.9 % (42-75); PLATELET COUNT 281 X10'3 (140-440); RED BLOOD COUNT 5.22 X10'6 (4.70-6.10); RED CELL DISTRIBUTION WIDTH 14.1 % (11.5-14.5); WHITE BLOOD COUNT 8.8 X10'3 (4.5-11.0)
--- NOTE | 2020-02-20 15:43 | NUR ---
PT WALKED TO [facility] AND WAS LIGHTHEADED AND THE PRODUCT CONSULTANT CALLED FOR THE HELP AND GHAZALA GRABBED A CHAIR FOR THE PT AND HAD HIM SIT IN THE CHAIR .PRODUCT CONSULTANT HAS NOTIFIED GORGE NARVAEZ.
--- NOTE | 2020-02-20 15:48 | NUR ---
PT RESTING IN BED VITALS ASSESSED AND DOCUMENTED WNL.
[2020-02-20 15:59] LABS: ALANINE AMINOTRANSFERASE 21 U/L (12-78); ALBUMIN 3.2 G/DL (3.4-5.0); ALBUMIN/GLOBULIN RATIO 0.8 (1.1-1.5); ALKALINE PHOSPHATASE 72 IU/L (46-116); ANION GAP 11 (8-16); ASPARTATE AMINO TRANSFERASE 15 U/L (10-37); BILIRUBIN,TOTAL 0.4 MG/DL (0.1-1.0); BLOOD UREA NITROGEN 17 MG/DL (7-18); BUN/CREATININE RATIO 18.9 (5.4-32.0); CALCIUM 9.3 MG/DL (8.5-10.1); CHLORIDE 102 MMOL/L (99-107); GLUCOSE 107 MG/DL (70-104); SODIUM 139 MMOL/L (135-145); TOTAL PROTEIN 7.3 G/DL (6.4-8.2); eGFR 84 ML/MIN
[2020-02-20 16:07] VITALS: BP 137/81
--- NOTE | 2020-02-20 16:10 | NUR ---
PT GAIT TEST PERFORMED EARLIER PT WAS ABLE TO GET UP FROM BED BYHIMSELF WITHOUT ANY DIFFICULTY BUT DURING GAIT TEST PT WAS SHOWING IMBALANCE POSTURE,PT REDIRECTED AND SAID THAT HE WAS WALKING EARLIER AND WITH FEW ENCOURAGEMENT PT WALKED IN HALLWAY WITH REJI LONGORIA AND PT SPO2 97% THROUGHOUT THE AMBULATION ,PT NOW IN BED EATING HIS SNACKS.
[2020-02-20 16:33] LABS: CLARITY,URINE CLEAR (Clear); COLOR,URINE YELLOW (Yellow); GLUCOSE, URINE 500 mg/dl (Neg); KETONES,URINE NEGATIVE (Neg); LEUKOCYTE ESTERASE ,URINE NEGATIVE (Neg); NITRITES, URINE NEGATIVE (Neg); OCCULT BLOOD,URINE NEGATIVE (Neg); PH,URINE 5.5 (4.8-8.0); PROTEIN,URINE NEGATIVE (Neg); UROBILINOGEN,URINE 0.2 E.U/dL (0.2-1.0)
[2020-02-20 16:36] LABS: UA COLLECTION TYPE NON-SPECIFIED
--- NOTE | 2020-02-20 16:38 | NUR ---
PT GOT AGITATED THE FACT HE IS GETTING D/C ,PT STATED THAT AM GOING TO TAKE MY LIFE ITS GOING TO BE ON THE PROVIDER,PT INSTRUCTED TO F/U WITH [facility] FOR CONTINUED CARE .[facility] NURSE KILO IS AWARE.PT WAS ABLE TO GET OUT OF BED AND DRESSED UP BY HIMSELF WITHOUT ANY DIFFICULITY ,STAND UP FAST AND CAME TO NUSES STATION WITHOUT LOSING BALANCE.
--- NOTE | 2020-02-20 16:38 | NUR ---
[facility] ETA 1800
[2020-02-20 16:39] LABS: URINE AMPHETAMINE SCREEN NEGATIVE (Neg); URINE BARBITUATE SCREEN NEGATIVE (Neg); URINE BENZODIAZEPINES SCREEN NEGATIVE (Neg); URINE METHADONE SCREEN NEGATIVE (Neg)
[2020-02-20 16:39] LABS: ETHANOL < 0.010 GM/DL (0.0-0.010)
[2020-02-20 16:40] LABS: URINE CANNABINOID SCREEN NEGATIVE (Neg); URINE COCAINE SCREEN NEGATIVE (Neg); URINE OPIATE SCREEN POSITIVE (Neg); URINE PHENCYCLIDINE SCREEN NEGATIVE (Neg)
--- NOTE | 2020-02-20 17:30 | NUR ---
PT WAITING IN THE ROOM PATIENTLY FOR HIS RIDE ,NO DISTRESS NOTED,PT ABLE TO URINATE BY HIMSELF WITHOUT ANY DIFFICULITY .
== END 2020-02-20 17:51 | disposition home or self-care (01) ==
LOC: ER 12:50
DX: F32.9 Major depressive disorder, single episode, unspecified (principal); R07.89 Other chest pain; R06.02 Shortness of breath; R53.1 Weakness; E11.42 Type 2 diabetes mellitus with diabetic polyneuropathy; I25.10 Atherosclerotic heart disease of native coronary artery without angina pectoris; E78.00 Pure hypercholesterolemia, unspecified; I10 Essential (primary) hypertension; I25.2 Old myocardial infarction; J44.9 Chronic obstructive pulmonary disease, unspecified; M19.90 Unspecified osteoarthritis, unspecified site; G89.29 Other chronic pain; F41.9 Anxiety disorder, unspecified; F31.9 Bipolar disorder, unspecified; F12.90 Cannabis use, unspecified, uncomplicated; Z90.49 Acquired absence of other specified parts of digestive tract; Z98.61 Coronary angioplasty status; Z98.890 Other specified postprocedural states; Z60.2 Problems related to living alone; Z88.0 Allergy status to penicillin; Z88.5 Allergy status to narcotic agent; Z88.8 Allergy status to other drugs, medicaments and biological substances; Z79.01 Long term (current) use of anticoagulants; Z79.82 Long term (current) use of aspirin; Z79.4 Long term (current) use of insulin; Z79.899 Other long term (current) drug therapy
CPT/HCPCS: 36415; 71045; 80053; 80305; 80320; 81003; 84484; 85025; 93005; 99285

== ENCOUNTER 2020-02-21 13:05 | Emergency (ER) | payer OTHER, MEDICARE ==
[~2020-02-21] VITALS: Ht 167.6 cm; Wt 88.6 kg
--- NOTE | 2020-02-21 13:19 | NUR ---
Per Dr Mckinnon, only do a 12-lead EKG and they will place other orders once they see the pt.
[2020-02-21 15:09] VITALS: BP 140/99
[2020-02-21 15:20] LABS: URINE AMPHETAMINE SCREEN NEGATIVE (Neg); URINE BARBITUATE SCREEN NEGATIVE (Neg); URINE BENZODIAZEPINES SCREEN NEGATIVE (Neg); URINE CANNABINOID SCREEN NEGATIVE (Neg); URINE COCAINE SCREEN NEGATIVE (Neg); URINE METHADONE SCREEN NEGATIVE (Neg); URINE OPIATE SCREEN NEGATIVE (Neg); URINE PHENCYCLIDINE SCREEN NEGATIVE (Neg)
== END 2020-02-21 15:56 | disposition home or self-care (01) ==
LOC: ER 13:06
DX: R07.89 Other chest pain (principal); E11.42 Type 2 diabetes mellitus with diabetic polyneuropathy; I25.10 Atherosclerotic heart disease of native coronary artery without angina pectoris; E78.00 Pure hypercholesterolemia, unspecified; I10 Essential (primary) hypertension; I25.2 Old myocardial infarction; J44.9 Chronic obstructive pulmonary disease, unspecified; M19.90 Unspecified osteoarthritis, unspecified site; G89.29 Other chronic pain; F41.9 Anxiety disorder, unspecified; F31.9 Bipolar disorder, unspecified; F12.90 Cannabis use, unspecified, uncomplicated; Z86.14 Personal history of Methicillin resistant Staphylococcus aureus infection; Z98.61 Coronary angioplasty status; Z90.49 Acquired absence of other specified parts of digestive tract; Z98.890 Other specified postprocedural states; Z60.2 Problems related to living alone; Z59.0 Homelessness; Z88.0 Allergy status to penicillin; Z79.01 Long term (current) use of anticoagulants; Z79.82 Long term (current) use of aspirin; Z79.4 Long term (current) use of insulin; Z79.899 Other long term (current) drug therapy
CPT/HCPCS: 36415; 80305; 84484; 93005; 99284

== ENCOUNTER 2020-03-31 15:02 | Emergency (ER) | payer OTHER, MEDICARE ==
[~2020-03-31] VITALS: Ht 167.6 cm; Wt 87.3 kg
[2020-03-31 15:21] VITALS: BP 134/87
== END 2020-03-31 16:35 | disposition home or self-care (01) ==
LOC: ER 15:02
DX: R07.89 Other chest pain (principal); F12.90 Cannabis use, unspecified, uncomplicated; I25.10 Atherosclerotic heart disease of native coronary artery without angina pectoris; E78.00 Pure hypercholesterolemia, unspecified; I10 Essential (primary) hypertension; J44.9 Chronic obstructive pulmonary disease, unspecified; E11.9 Type 2 diabetes mellitus without complications; M19.90 Unspecified osteoarthritis, unspecified site; G89.29 Other chronic pain; Z86.14 Personal history of Methicillin resistant Staphylococcus aureus infection; Z88.0 Allergy status to penicillin; Z88.6 Allergy status to analgesic agent; Z88.8 Allergy status to other drugs, medicaments and biological substances; Z79.82 Long term (current) use of aspirin; Z79.4 Long term (current) use of insulin; Z79.899 Other long term (current) drug therapy; Z98.61 Coronary angioplasty status
CPT/HCPCS: 93005; 99283

== ENCOUNTER 2020-04-23 19:34 | Emergency (ER) | payer OTHER, MEDICARE ==
[~2020-04-23] VITALS: Ht 172.7 cm; Wt 90.0 kg
[2020-04-23 19:47] VITALS: BP 178/92
[2020-04-23] MEDS ORDERED: acetaminophen 325mg tablet PO ONE (21:10)
[2020-04-23] MEDS ORDERED: ibuprofen tablet 400 MG TABLET PO ONE (21:10)
--- NOTE | 2020-04-23 21:47 | NUR ---
EKG DONE FOR PT C/O OF cp. REVIEWED, NO CHANGE IN PLANS
--- NOTE | 2020-04-23 22:09 | NUR ---
PT REFUSED AMBULANCE RIDE AND WALKED OUT TO LOBBY AGAINST STAFFS' DIRECTIONS. SAT IN LOBBY. INSTRUCTED PT THAT DUE TO HIM BEING COVID POSITIVE AND REFUSING AMBULANCE RIDE HOME, HE CANNOT STAY IN LOBBY DUE TO INFECTION AND HE NEEDS TO LEAVE THE PROPERTY. SECURITY ON STAND BY. PT AMBULATED OUT OF ER LOBBY.
== END 2020-04-23 22:10 | disposition home or self-care (01) ==
LOC: ER 19:34
DX: B34.9 Viral infection, unspecified (principal); R05 Cough; R19.7 Diarrhea, unspecified; R07.89 Other chest pain; Z20.828 Contact with and (suspected) exposure to other viral communicable diseases; I48.91 Unspecified atrial fibrillation; I25.10 Atherosclerotic heart disease of native coronary artery without angina pectoris; E78.00 Pure hypercholesterolemia, unspecified; I10 Essential (primary) hypertension; I25.2 Old myocardial infarction; J44.9 Chronic obstructive pulmonary disease, unspecified; E11.42 Type 2 diabetes mellitus with diabetic polyneuropathy; M19.90 Unspecified osteoarthritis, unspecified site; G89.29 Other chronic pain; F41.9 Anxiety disorder, unspecified; F31.9 Bipolar disorder, unspecified; F12.90 Cannabis use, unspecified, uncomplicated; Z87.01 Personal history of pneumonia (recurrent); Z86.14 Personal history of Methicillin resistant Staphylococcus aureus infection; Z90.49 Acquired absence of other specified parts of digestive tract; Z98.890 Other specified postprocedural states; Z60.2 Problems related to living alone; Z88.8 Allergy status to other drugs, medicaments and biological substances; Z88.0 Allergy status to penicillin; Z88.5 Allergy status to narcotic agent; Z79.82 Long term (current) use of aspirin; Z79.4 Long term (current) use of insulin; Z79.899 Other long term (current) drug therapy
CPT/HCPCS: 93005; 99283

== ENCOUNTER 2020-05-03 07:30 | Emergency (ER) | payer OTHER, MEDICARE ==
[~2020-05-03] VITALS: Ht 172.7 cm; Wt 90.9 kg
[~2020-05-03 07:30] MED LIST changes: +CLOP75TA34 PO; -CLOP75TA35 PO; -LISI-600 PO; +LISI20TA28 PO
--- NOTE | 2020-05-03 08:28 | NUR ---
dr staples came to er nurses station stated that pt has all the work up for stroke at [facility] and as per he is not going to do any test or lab on pt ,just monitor the pt for rgt now.
[2020-05-03 09:50] VITALS: BP 128/96
[2020-05-03] MEDS ORDERED: gabapentin 300mg capsule PO ONE (10:30)
[2020-05-04] MEDS ORDERED: METO-384 PO (11:10)
[2020-05-04] MEDS ORDERED: AMIO200T61 PO (11:12)
[2020-05-28] MEDS ORDERED: APIX5TAB3 PO (11:35)
[2020-05-28] MEDS ORDERED: BUSP5TAB26 PO (11:35)
[2020-05-28] MEDS ORDERED: SERT-432 PO (11:35)
[2020-05-28] MEDS ORDERED: PANT40TA54 PO (11:35)
[2020-05-29] MEDS ORDERED: LISI10TA27 PO (08:16)
[2020-05-29] MEDS ORDERED: SERT-432 PO (08:44)
== END 2020-05-03 11:43 | disposition home or self-care (01) ==
LOC: ER 07:30
DX: R53.1 Weakness (principal); R07.9 Chest pain, unspecified; R41.0 Disorientation, unspecified; E11.42 Type 2 diabetes mellitus with diabetic polyneuropathy; I11.9 Hypertensive heart disease without heart failure; E78.00 Pure hypercholesterolemia, unspecified; J44.9 Chronic obstructive pulmonary disease, unspecified; F31.9 Bipolar disorder, unspecified; Z98.890 Other specified postprocedural states; Z88.0 Allergy status to penicillin; Z79.899 Other long term (current) drug therapy; Z79.82 Long term (current) use of aspirin
CPT/HCPCS: 99284

== ENCOUNTER 2020-05-29 04:40 | Emergency (ER) | payer OTHER, MEDICARE ==
[~2020-05-29] VITALS: Ht 172.7 cm; Wt 102.3 kg
[~2020-05-29 04:40] MED LIST changes: +AMIO200T61 PO; -AMLO10TA13 PO; -ASPI81TA52 PO; -BUSP10TA10 PO; +BUSP5TAB26 PO; -HYDR-3686 PO; +LISI-600 PO; -LISI20TA28 PO; +METO-384 PO; -METO75TA PO; +PANT40TA54 PO; +SERT25TA5 PO
[2020-05-29 05:41] LABS: BASOPHILS # (AUTO) 0.1 X10'3 (0-0.2); BASOPHILS % (AUTO) 0.8 % (0-1); EOSINOPHILS # (AUTO) 0.1 X10'3 (0-0.9); EOSINOPHILS % (AUTO) 1.1 % (0-6); HEMATOCRIT 39.7 % (42.0-52.0); HEMOGLOBIN 13.1 g/dl (14.0-17.9); LYMPHOCYTES % (AUTO) 12.8 % (21-51); MEAN CORPUSCULAR HEMOGLOBIN 29.5 PG (27.0-31.0); MEAN CORPUSCULAR HGB CONC 32.9 g/dL (33.0-36.5); MEAN CORPUSCULAR VOLUME 89.6 FL (78-98); MEAN PLATELET VOLUME 7.3 FL (7.4-10.4); MONOCYTES # (AUTO) 1.2 X10'3 (0-0.9); MONOCYTES % (AUTO) 14.6 % (2-12); NEUTROPHILS # (AUTO) 5.6 X10'3 (1.8-7.7); NEUTROPHILS % (AUTO) 70.7 % (42-75); PLATELET COUNT 449 X10'3 (140-440); RED BLOOD COUNT 4.43 X10'6 (4.70-6.10); RED CELL DISTRIBUTION WIDTH 15.8 % (11.5-14.5); WHITE BLOOD COUNT 7.9 X10'3 (4.5-11.0)
[2020-05-29 05:51] LABS: GLUCOSE 148 MG/DL (70-104); POTASSIUM 3.7 MMOL/L (3.5-5.1); SODIUM 137 MMOL/L (135-145)
[2020-05-29 05:52] LABS: ALANINE AMINOTRANSFERASE 31 U/L (12-78); ALBUMIN 3.2 G/DL (3.4-5.0); ALBUMIN/GLOBULIN RATIO 0.7 (1.1-1.5); ALKALINE PHOSPHATASE 69 IU/L (46-116); ANION GAP 10 (8-16); ASPARTATE AMINO TRANSFERASE 26 U/L (10-37); BILIRUBIN,TOTAL 0.5 MG/DL (0.1-1.0); BLOOD UREA NITROGEN 20 MG/DL (7-18); BUN/CREATININE RATIO 22.2 (5.4-32.0); CALCIUM 8.8 MG/DL (8.5-10.1); CHLORIDE 103 MMOL/L (99-107); ETHANOL < 0.010 GM/DL (0.0-0.010); TOTAL CARBON DIOXIDE 24.1 MMOL/L (24-32); eGFR 84 ML/MIN
--- NOTE | 2020-05-29 06:29 | NUR ---
Pt awake, sitting quietly in bed.
[2020-05-29 06:49] LABS: CLARITY,URINE CLEAR (Clear); COLOR,URINE YELLOW (Yellow); GLUCOSE, URINE NEGATIVE (Neg); KETONES,URINE NEGATIVE (Neg); LEUKOCYTE ESTERASE ,URINE TRACE (Neg); NITRITES, URINE NEGATIVE (Neg); OCCULT BLOOD,URINE NEGATIVE (Neg); PH,URINE 5.5 (4.8-8.0); PROTEIN,URINE NEGATIVE (Neg); UROBILINOGEN,URINE 0.2 E.U/dL (0.2-1.0)
[2020-05-29 06:54] LABS: UA COLLECTION TYPE URINAL
[2020-05-29 06:55] LABS: BACTERIA,URINE FEW /HPF (Neg); MUCUS STRANDS NONE SEEN /LPF (Neg); RBC,URINE NONE SEEN /HPF (0-2); SQUAMOUS EPITHELIAL CELL,UR NONE SEEN /LPF (FEW); WBC,URINE 0-4 /HPF (0-4)
[2020-05-29 07:13] LABS: URINE AMPHETAMINE SCREEN NEGATIVE (Neg); URINE BARBITUATE SCREEN NEGATIVE (Neg); URINE BENZODIAZEPINES SCREEN NEGATIVE (Neg); URINE CANNABINOID SCREEN NEGATIVE (Neg); URINE COCAINE SCREEN NEGATIVE (Neg); URINE METHADONE SCREEN NEGATIVE (Neg); URINE OPIATE SCREEN POSITIVE (Neg); URINE PHENCYCLIDINE SCREEN NEGATIVE (Neg)
--- NOTE | 2020-05-29 07:31 | NUR ---
[facility]
--- NOTE | 2020-05-29 07:36 | NUR ---
Pt states he is not sure what medications he takes. [facility]ist Bora updated who states he will do med rec [facility].
[2020-05-29] MEDS ORDERED: LISI10TA4 PO (08:16)
--- NOTE | 2020-05-29 08:18 | NUR ---
medications reconciled using hospital discharge summary from 05/28/20.
[2020-05-29] MEDS ORDERED: PANT40TA54 PO (08:44)
[2020-05-29] MEDS ORDERED: SERT25TA5 PO (08:44)
[2020-05-29] MEDS ORDERED: nitroGLYCERIN 0.4mg SUBLingual tab SL PRN (08:45)
[2020-05-29] MEDS ORDERED: NYSTATIN CREAM - 30GM TUBE TP PRN (08:45)
[2020-05-29] MEDS ORDERED: amiodarone 100mg tablet PO SCH (08:51)
[2020-05-29] MEDS ORDERED: apixaban 5mg tablet PO SCH (08:53)
[2020-05-29] MEDS ORDERED: clopidogrel 75mg tablet PO SCH (08:54)
[2020-05-29] MEDS ORDERED: vitamin D (cholecalciferol) 1,000 unit tablet PO SCH (08:54)
[2020-05-29] MEDS ORDERED: albuterol 2.5 MG/3 ML nebule NEB PRN (08:55)
[2020-05-29] MEDS ORDERED: lisinopril 10 MG tablet PO SCH (08:55)
[2020-05-29] MEDS ORDERED: metFORMIN 500mg tablet PO SCH (08:56)
[2020-05-29] MEDS ORDERED: pantoprazole 40mg Tablet.DR PO SCH (08:57)
[2020-05-29] MEDS ORDERED: sertraline 25mg tablet PO SCH (08:57)
[2020-05-29] MEDS ORDERED: atorvastatin 20mg tablet PO SCH (08:58)
[2020-05-29] MEDS ORDERED: metoprolol succinate 25mg (24-HOUR) SR. Tablet PO SCH (09:01)
[2020-05-29] MEDS ORDERED: ipratropium 0.5 MG/2.5ML nebule IH PRN (09:05)
[2020-05-29] MEDS: gabapentin 300mg capsule PO SCH ×2 (09:16→15:59)
--- NOTE | 2020-05-29 09:16 | NUR ---
[facility] STATES THEY DO NOT HAVE PTS PACKET, FAXED AGAIN
[2020-05-29] MEDS ORDERED: busPIRone 5mg tablet PO SCH (13:00)
[2020-05-29] MEDS ORDERED: acetaminophen 325mg tablet PO PRN (15:50)
--- NOTE | 2020-05-29 16:53 | NUR ---
Patient cleared by [facility]. DC orders placed by Dr. ortiz. Patient informed that it was time to go home. He was not happy with the news and stated he did not want to go home and kept repeating "im done." He states that he cannot go home because he cannot walk. Patient has been ambulating to the bathroom unassisted since arriving to ED. Dr. Ortiz at bedside to explain to patient that he can not stay here. Taxi ordered for patient. Discharge instructions reviewed and the importance of following up with PCP and filling medication scripts, pt verbalized understanding.
[2020-05-29 16:56] VITALS: BP 168/101
[2020-05-29] MEDS ORDERED: budesonide 0.5mg/2ml UD nebule IH SCH (20:00)
[2020-05-29] MEDS ORDERED: prazosin 1mg capsule PO SCH (21:00)
[2020-05-29] MEDS ORDERED: insulin glargine (Lantus) pen - multi-dose SQ SCH (21:00)
== END 2020-05-29 16:58 ==
LOC: ER 04:40
DX: R45.851 Suicidal ideations (principal); E11.42 Type 2 diabetes mellitus with diabetic polyneuropathy; I48.91 Unspecified atrial fibrillation; I25.10 Atherosclerotic heart disease of native coronary artery without angina pectoris; E78.00 Pure hypercholesterolemia, unspecified; I25.2 Old myocardial infarction; I10 Essential (primary) hypertension; J44.9 Chronic obstructive pulmonary disease, unspecified; M19.90 Unspecified osteoarthritis, unspecified site; F12.90 Cannabis use, unspecified, uncomplicated; G89.29 Other chronic pain; F41.9 Anxiety disorder, unspecified; F31.9 Bipolar disorder, unspecified; Z20.828 Contact with and (suspected) exposure to other viral communicable diseases; Z86.14 Personal history of Methicillin resistant Staphylococcus aureus infection; Z90.49 Acquired absence of other specified parts of digestive tract; Z98.61 Coronary angioplasty status; Z98.890 Other specified postprocedural states; Z60.2 Problems related to living alone; Z88.8 Allergy status to other drugs, medicaments and biological substances; Z79.01 Long term (current) use of anticoagulants; Z79.899 Other long term (current) drug therapy; Z79.4 Long term (current) use of insulin
CPT/HCPCS: 36415; 80053; 80305; 80320; 81001; 82948; 85025; 87426; 99285; J1815

== ENCOUNTER 2020-05-31 11:19 | Emergency (ER) | payer OTHER, MEDICARE ==
[~2020-05-31] VITALS: Ht 172.7 cm; Wt 80.0 kg
[~2020-05-31 11:19] MED LIST changes: -LISI-600 PO; +LISI10TA4 PO
[2020-05-31 12:00] LABS: BASOPHILS % (AUTO) 0.5 % (0-1); EOSINOPHILS % (AUTO) 0.3 % (0-6); HEMATOCRIT 36.3 % (42.0-52.0); LYMPHOCYTES % (AUTO) 10.1 % (21-51); MEAN CORPUSCULAR HEMOGLOBIN 29.6 PG (27.0-31.0); MEAN CORPUSCULAR HGB CONC 33.1 g/dL (33.0-36.5); MEAN CORPUSCULAR VOLUME 89.5 FL (78-98); MEAN PLATELET VOLUME 7.3 FL (7.4-10.4); MONOCYTES # (AUTO) 1.3 X10'3 (0-0.9); MONOCYTES % (AUTO) 13.5 % (2-12); NEUTROPHILS # (AUTO) 7.6 X10'3 (1.8-7.7); NEUTROPHILS % (AUTO) 75.6 % (42-75); PLATELET COUNT 433 X10'3 (140-440); RED BLOOD COUNT 4.06 X10'6 (4.70-6.10); RED CELL DISTRIBUTION WIDTH 15.8 % (11.5-14.5)
[2020-05-31 12:15] LABS: ALANINE AMINOTRANSFERASE 19 U/L (12-78); ALBUMIN 3.2 G/DL (3.4-5.0); ALBUMIN/GLOBULIN RATIO 0.7 (1.1-1.5); ALKALINE PHOSPHATASE 81 IU/L (46-116); ANION GAP 10 (8-16); ASPARTATE AMINO TRANSFERASE 16 U/L (10-37); BILIRUBIN,TOTAL 0.9 MG/DL (0.1-1.0); BLOOD UREA NITROGEN 11 MG/DL (7-18); BUN/CREATININE RATIO 15.1 (5.4-32.0); CALCIUM 8.7 MG/DL (8.5-10.1); CHLORIDE 101 MMOL/L (99-107); CREATININE 0.73 MG/DL (0.60-1.10); GLUCOSE 166 MG/DL (70-104); POTASSIUM 3.5 MMOL/L (3.5-5.1); SODIUM 135 MMOL/L (135-145); TOTAL CARBON DIOXIDE 24.3 MMOL/L (24-32); TOTAL PROTEIN 7.8 G/DL (6.4-8.2); eGFR > 90 ML/MIN
[2020-05-31 13:08] LABS: URINE AMPHETAMINE SCREEN NEGATIVE (Neg); URINE BARBITUATE SCREEN NEGATIVE (Neg); URINE BENZODIAZEPINES SCREEN NEGATIVE (Neg); URINE CANNABINOID SCREEN NEGATIVE (Neg); URINE COCAINE SCREEN NEGATIVE (Neg); URINE METHADONE SCREEN NEGATIVE (Neg); URINE OPIATE SCREEN POSITIVE (Neg); URINE PHENCYCLIDINE SCREEN NEGATIVE (Neg)
[2020-05-31] MEDS ORDERED: benzonatate 100mg capsule PO ONE (13:10)
[2020-05-31 13:12] LABS: CLARITY,URINE CLEAR (Clear); COLOR,URINE YELLOW (Yellow); GLUCOSE, URINE NEGATIVE (Neg); KETONES,URINE TRACE mg/dl (Neg); LEUKOCYTE ESTERASE ,URINE NEGATIVE (Neg); NITRITES, URINE NEGATIVE (Neg); OCCULT BLOOD,URINE NEGATIVE (Neg); PROTEIN,URINE NEGATIVE (Neg)
[2020-05-31 13:16] LABS: UA COLLECTION TYPE VOIDED
[2020-05-31 15:18] VITALS: BP 139/80
== END 2020-05-31 16:09 | disposition home or self-care (01) ==
LOC: ER 11:20
DX: R07.89 Other chest pain (principal); R05 Cough; R06.02 Shortness of breath; R30.0 Dysuria; R11.2 Nausea with vomiting, unspecified; R19.7 Diarrhea, unspecified; E11.42 Type 2 diabetes mellitus with diabetic polyneuropathy; I48.91 Unspecified atrial fibrillation; I25.10 Atherosclerotic heart disease of native coronary artery without angina pectoris; E78.00 Pure hypercholesterolemia, unspecified; I10 Essential (primary) hypertension; I25.2 Old myocardial infarction; J44.9 Chronic obstructive pulmonary disease, unspecified; E11.9 Type 2 diabetes mellitus without complications; M19.90 Unspecified osteoarthritis, unspecified site; G89.29 Other chronic pain; F41.9 Anxiety disorder, unspecified; F31.9 Bipolar disorder, unspecified; F12.90 Cannabis use, unspecified, uncomplicated; Z87.01 Personal history of pneumonia (recurrent); Z86.14 Personal history of Methicillin resistant Staphylococcus aureus infection; Z90.49 Acquired absence of other specified parts of digestive tract; Z98.890 Other specified postprocedural states; Z60.2 Problems related to living alone; Z88.5 Allergy status to narcotic agent; Z88.0 Allergy status to penicillin; Z88.8 Allergy status to other drugs, medicaments and biological substances; Z79.4 Long term (current) use of insulin; Z79.899 Other long term (current) drug therapy
CPT/HCPCS: 36415; 71045; 80053; 80305; 81003; 83880; 84484; 85025; 93005; 99285

== ENCOUNTER 2020-06-01 20:02 | Emergency (ER) | payer OTHER, MEDICARE ==
[~2020-06-01] VITALS: Ht 172.7 cm; Wt 90.9 kg
[2020-06-01 20:42] LABS: BASOPHILS # (AUTO) 0.1 X10'3 (0-0.2); BASOPHILS % (AUTO) 0.7 % (0-1); EOSINOPHILS # (AUTO) 0.1 X10'3 (0-0.9); EOSINOPHILS % (AUTO) 0.6 % (0-6); HEMOGLOBIN 12.3 g/dl (14.0-17.9); LYMPHOCYTES # (AUTO) 1.2 X10'3 (1.1-4.8); LYMPHOCYTES % (AUTO) 12.2 % (21-51); MEAN CORPUSCULAR HEMOGLOBIN 29.8 PG (27.0-31.0); MEAN CORPUSCULAR HGB CONC 33.3 g/dL (33.0-36.5); MEAN CORPUSCULAR VOLUME 89.7 FL (78-98); MEAN PLATELET VOLUME 7.1 FL (7.4-10.4); MONOCYTES # (AUTO) 1.3 X10'3 (0-0.9); MONOCYTES % (AUTO) 14.1 % (2-12); NEUTROPHILS # (AUTO) 6.9 X10'3 (1.8-7.7); NEUTROPHILS % (AUTO) 72.4 % (42-75); PLATELET COUNT 461 X10'3 (140-440); RED BLOOD COUNT 4.12 X10'6 (4.70-6.10); RED CELL DISTRIBUTION WIDTH 16.1 % (11.5-14.5); WHITE BLOOD COUNT 9.5 X10'3 (4.5-11.0)
[2020-06-01 20:57] LABS: ALANINE AMINOTRANSFERASE 22 U/L (12-78); ALBUMIN 3.4 G/DL (3.4-5.0); ALBUMIN/GLOBULIN RATIO 0.7 (1.1-1.5); ALKALINE PHOSPHATASE 82 IU/L (46-116); ANION GAP 15 (8-16); ASPARTATE AMINO TRANSFERASE 20 U/L (10-37); BILIRUBIN,TOTAL 0.9 MG/DL (0.1-1.0); BLOOD UREA NITROGEN 17 MG/DL (7-18); BUN/CREATININE RATIO 16.3 (5.4-32.0); CHLORIDE 102 MMOL/L (99-107); CREATININE 1.04 MG/DL (0.60-1.10); ETHANOL < 0.010 GM/DL (0.0-0.010); GLUCOSE 197 MG/DL (70-104); POTASSIUM 3.5 MMOL/L (3.5-5.1); SODIUM 138 MMOL/L (135-145); TOTAL PROTEIN 8.2 G/DL (6.4-8.2); eGFR 71 ML/MIN
[2020-06-01] MEDS ORDERED: prazosin 1mg capsule PO SCH (21:00)
[2020-06-01 21:01] LABS: ACETAMINOPHEN < 2.0 UG/ML (10-30)
--- NOTE | 2020-06-01 21:16 | NUR ---
MED REC PRINTED AND COMPLETE FAXED TO PHARMACY
--- NOTE | 2020-06-01 21:16 | NUR ---
The patient moved to bed 25 and was cooperative with the move. He was requested to give a urine sample.
[2020-06-01 21:59] LABS: URINE AMPHETAMINE SCREEN NEGATIVE (Neg); URINE BARBITUATE SCREEN NEGATIVE (Neg); URINE BENZODIAZEPINES SCREEN NEGATIVE (Neg); URINE CANNABINOID SCREEN NEGATIVE (Neg); URINE COCAINE SCREEN NEGATIVE (Neg); URINE METHADONE SCREEN NEGATIVE (Neg); URINE OPIATE SCREEN POSITIVE (Neg); URINE PHENCYCLIDINE SCREEN NEGATIVE (Neg)
[2020-06-01] MEDS ORDERED: NYSTATIN CREAM - 30GM TUBE TP PRN (22:10)
[2020-06-01] MEDS ORDERED: albuterol 2.5 MG/3 ML nebule NEB PRN (22:10)
--- NOTE | 2020-06-01 22:18 | NUR ---
Packet sent to [facility]
[2020-06-01] MEDS ORDERED: gabapentin 400mg capsule PO SCH (22:30)
[2020-06-01] MEDS ORDERED: insulin glargine (Lantus) pen - multi-dose SQ SCH (22:35)
[2020-06-01] MEDS: busPIRone 5mg tablet PO SCH (22:49)
[2020-06-01] MEDS: gabapentin 300mg capsule PO SCH (22:51)
[2020-06-01] MEDS: metFORMIN 500mg tablet PO SCH (22:51)
--- NOTE | 2020-06-01 22:55 | NUR ---
The patient stated he came to the ER because he was feeling suicidal. He stated he is unhappy that his medications were locked up at the place he is staying
--- NOTE | 2020-06-01 23:22 | NUR ---
The patient appears to be sleeping.
[2020-06-02] MEDS ORDERED: gabapentin 300mg capsule PO SCH
--- NOTE | 2020-06-02 00:58 | NUR ---
The patient appears to be sleeping
--- NOTE | 2020-06-02 01:59 | NUR ---
The patient appears to be sleeping
[2020-06-02] MEDS: ipratropium/albuterol 3ml nebule IH SCH ×3 (02:43→15:56)
--- NOTE | 2020-06-02 04:23 | NUR ---
The patient appears to be sleeping
[2020-06-02] MEDS ORDERED: atorvastatin 20mg tablet PO SCH (08:00)
[2020-06-02] MEDS ORDERED: metoprolol succinate 25mg (24-HOUR) SR. Tablet PO SCH (08:00)
[2020-06-02] MEDS ORDERED: budesonide 0.5mg/2ml UD nebule IH SCH (08:00)
[2020-06-02] MEDS ORDERED: TIOTROPIUM BROMIDE PO SCH (08:00)
[2020-06-02] MEDS ORDERED: amiodarone 100mg tablet PO SCH (08:00)
[2020-06-02] MEDS ORDERED: pantoprazole 40mg Tablet.DR PO SCH (08:00)
[2020-06-02] MEDS ORDERED: vitamin D (cholecalciferol) 1,000 unit tablet PO SCH (08:00)
[2020-06-02] MEDS ORDERED: lisinopril 10 MG tablet PO SCH (08:00)
[2020-06-02] MEDS ORDERED: sertraline 25mg tablet PO SCH (08:00)
[2020-06-02] MEDS ORDERED: non-formulary drug (Budesonide/Formoterol Fumarate (Symbicort 80-4.5 Mcg Inhaler) 2 PUFFS) INH SCH (08:00)
[2020-06-02] MEDS ORDERED: clopidogrel 75mg tablet PO SCH (08:00)
[2020-06-02] MEDS: busPIRone 5mg tablet PO SCH ×2 (08:26→13:07)
[2020-06-02] MEDS: metFORMIN 500mg tablet PO SCH (08:26)
[2020-06-02] MEDS: gabapentin 300mg capsule PO SCH ×2 (08:27→13:07)
--- NOTE | 2020-06-02 09:00 | NUR ---
pt is lying in bed. pt asks for help for things he can do for himself. pt appears to be apothetic, not wanting to participate in his care.
--- NOTE | 2020-06-02 10:50 | NUR ---
pt is being released from his 5150. pt is being sent to his home via taxi, provided by hospital.
[2020-06-02] MEDS: nitroGLYCERIN 0.4mg SUBLingual tab SL PRN ×2 (11:08→11:24)
--- NOTE | 2020-06-02 11:14 | NUR ---
upon learning that he will be dc'd home, pt began complaining of 9/10 cp. nitroglycerin administered, Dr Sorto consulted, verbal order for EKG.
--- NOTE | 2020-06-02 11:39 | NUR ---
pt is now resting in bed, pt's vitals are wnl
--- NOTE | 2020-06-02 12:35 | NUR ---
pt is resting in bed, no complaints of cp.
[2020-06-02] MEDS ORDERED: loperamide 2mg capsule PO ONE (14:00)
--- NOTE | 2020-06-02 14:19 | NUR ---
breaking primary rn, pt is sleeping, will continue to monitor, ekg has already been done and given to MD per tech
--- NOTE | 2020-06-02 15:23 | NUR ---
pt is sleeping, no s/s of distress noted.
--- NOTE | 2020-06-02 16:56 | NUR ---
pt is lying in bed, wants to stay here but can't state exactly why.
[2020-06-02 17:13] VITALS: BP 142/82
--- NOTE | 2020-06-02 17:58 | NUR ---
pt all dressed and awaiting cab, his dinner was offered to him but pt refused, will continue to monitor
[2020-06-02] MEDS ORDERED: insulin glargine (Lantus) pen - multi-dose SQ SCH (21:00)
== END 2020-06-02 18:24 ==
LOC: ER 20:03
DX: R45.851 Suicidal ideations (principal); R07.89 Other chest pain; Z20.822 Contact with and (suspected) exposure to COVID-19; E11.42 Type 2 diabetes mellitus with diabetic polyneuropathy; I48.91 Unspecified atrial fibrillation; I25.10 Atherosclerotic heart disease of native coronary artery without angina pectoris; E78.00 Pure hypercholesterolemia, unspecified; I10 Essential (primary) hypertension; I25.2 Old myocardial infarction; J44.9 Chronic obstructive pulmonary disease, unspecified; M19.90 Unspecified osteoarthritis, unspecified site; G89.29 Other chronic pain; F41.9 Anxiety disorder, unspecified; F31.9 Bipolar disorder, unspecified; F12.90 Cannabis use, unspecified, uncomplicated; Z86.14 Personal history of Methicillin resistant Staphylococcus aureus infection; Z90.49 Acquired absence of other specified parts of digestive tract; Z98.890 Other specified postprocedural states; Z60.2 Problems related to living alone; Z88.0 Allergy status to penicillin; Z88.5 Allergy status to narcotic agent; Z88.8 Allergy status to other drugs, medicaments and biological substances; Z79.4 Long term (current) use of insulin; Z79.899 Other long term (current) drug therapy
CPT/HCPCS: 36415; 80053; 80305; 80320; 80329; 82948; 84484; 85025; 87426; 93005; 94640; 94760; 99285; J1815; J7626

== ENCOUNTER 2020-06-05 16:16 | Emergency (ER) | payer OTHER, MEDICARE ==
[~2020-06-05] VITALS: Ht 172.7 cm; Wt 79.5 kg
[~2020-06-05 16:16] MED LIST changes: -APIX5TAB3 PO
[2020-06-05 17:04] VITALS: BP 120/79
--- NOTE | 2020-06-05 17:23 | NUR ---
Patient discharged home. Sent via taxi. When patient was told he was being discharged he stated that he did not want to talk about it and he was going to go home and hurt himself. Dr. Null aware, ok to dc patient to home.
== END 2020-06-05 17:24 | disposition home or self-care (01) ==
LOC: ER 16:17
DX: R45.851 Suicidal ideations (principal); R07.89 Other chest pain; R19.7 Diarrhea, unspecified; R11.10 Vomiting, unspecified; R06.02 Shortness of breath; E11.42 Type 2 diabetes mellitus with diabetic polyneuropathy; I48.91 Unspecified atrial fibrillation; I25.10 Atherosclerotic heart disease of native coronary artery without angina pectoris; E78.00 Pure hypercholesterolemia, unspecified; I10 Essential (primary) hypertension; I25.2 Old myocardial infarction; J44.9 Chronic obstructive pulmonary disease, unspecified; M19.90 Unspecified osteoarthritis, unspecified site; G89.29 Other chronic pain; F41.9 Anxiety disorder, unspecified; F31.9 Bipolar disorder, unspecified; F12.90 Cannabis use, unspecified, uncomplicated; Z87.01 Personal history of pneumonia (recurrent); Z86.14 Personal history of Methicillin resistant Staphylococcus aureus infection; Z90.49 Acquired absence of other specified parts of digestive tract; Z98.890 Other specified postprocedural states; Z60.2 Problems related to living alone; Z88.0 Allergy status to penicillin; Z88.5 Allergy status to narcotic agent; Z88.8 Allergy status to other drugs, medicaments and biological substances; Z79.4 Long term (current) use of insulin; Z79.899 Other long term (current) drug therapy
CPT/HCPCS: 93005; 99285

== ENCOUNTER 2020-06-05 21:15 | Emergency (ER) | payer OTHER, MEDICARE ==
[~2020-06-05] VITALS: Ht 172.7 cm; Wt 82.2 kg
--- NOTE | 2020-06-05 22:58 | NUR ---
DR. ENCISO AT BEDSIDE.
[2020-06-05 23:35] VITALS: BP 134/69
== END 2020-06-05 23:37 | disposition home or self-care (01) ==
LOC: ER 21:16
DX: Z02.89 Encounter for other administrative examinations (principal); I51.9 Heart disease, unspecified; R11.2 Nausea with vomiting, unspecified; R19.7 Diarrhea, unspecified; R05 Cough; R06.02 Shortness of breath; R07.89 Other chest pain; E11.42 Type 2 diabetes mellitus with diabetic polyneuropathy; I48.91 Unspecified atrial fibrillation; I25.10 Atherosclerotic heart disease of native coronary artery without angina pectoris; E78.00 Pure hypercholesterolemia, unspecified; I10 Essential (primary) hypertension; I25.2 Old myocardial infarction; J44.9 Chronic obstructive pulmonary disease, unspecified; M19.90 Unspecified osteoarthritis, unspecified site; G89.29 Other chronic pain; F41.9 Anxiety disorder, unspecified; F31.9 Bipolar disorder, unspecified; F12.90 Cannabis use, unspecified, uncomplicated; Z87.01 Personal history of pneumonia (recurrent); Z86.14 Personal history of Methicillin resistant Staphylococcus aureus infection; Z90.49 Acquired absence of other specified parts of digestive tract; Z98.890 Other specified postprocedural states; Z60.2 Problems related to living alone; Z88.0 Allergy status to penicillin; Z88.5 Allergy status to narcotic agent; Z88.8 Allergy status to other drugs, medicaments and biological substances; Z79.4 Long term (current) use of insulin; Z79.899 Other long term (current) drug therapy
CPT/HCPCS: 99283

== ENCOUNTER 2020-06-07 23:02 | Emergency (ER) | payer OTHER, MEDICARE ==
[~2020-06-07] VITALS: Ht 172.7 cm; Wt 79.1 kg
--- NOTE | 2020-06-07 23:29 | NUR ---
chest x ray at bedside
[2020-06-07 23:33] LABS: BASOPHILS # (AUTO) 0.1 X10'3 (0-0.2); EOSINOPHILS # (AUTO) 0.2 X10'3 (0-0.9); EOSINOPHILS % (AUTO) 1.6 % (0-6); HEMATOCRIT 35.6 % (42.0-52.0); HEMOGLOBIN 11.9 g/dl (14.0-17.9); LYMPHOCYTES # (AUTO) 1.5 X10'3 (1.1-4.8); LYMPHOCYTES % (AUTO) 13.8 % (21-51); MEAN CORPUSCULAR HEMOGLOBIN 30.4 PG (27.0-31.0); MEAN CORPUSCULAR HGB CONC 33.4 g/dL (33.0-36.5); MEAN CORPUSCULAR VOLUME 91.1 FL (78-98); MEAN PLATELET VOLUME 7.4 FL (7.4-10.4); MONOCYTES # (AUTO) 1.3 X10'3 (0-0.9); MONOCYTES % (AUTO) 11.8 % (2-12); NEUTROPHILS # (AUTO) 7.7 X10'3 (1.8-7.7); NEUTROPHILS % (AUTO) 71.8 % (42-75); PLATELET COUNT 407 X10'3 (140-440); RED BLOOD COUNT 3.91 X10'6 (4.70-6.10); RED CELL DISTRIBUTION WIDTH 16.6 % (11.5-14.5); WHITE BLOOD COUNT 10.8 X10'3 (4.5-11.0)
[2020-06-07 23:53] LABS: ALANINE AMINOTRANSFERASE 17 U/L (12-78); ALBUMIN/GLOBULIN RATIO 0.7 (1.1-1.5); ALKALINE PHOSPHATASE 78 IU/L (46-116); ANION GAP 10 (8-16); ASPARTATE AMINO TRANSFERASE 16 U/L (10-37); BILIRUBIN,TOTAL 0.7 MG/DL (0.1-1.0); BLOOD UREA NITROGEN 14 MG/DL (7-18); BUN/CREATININE RATIO 14.7 (5.4-32.0); CALCIUM 8.8 MG/DL (8.5-10.1); CHLORIDE 101 MMOL/L (99-107); CREATININE 0.95 MG/DL (0.60-1.10); GLUCOSE 232 MG/DL (70-104); POTASSIUM 3.5 MMOL/L (3.5-5.1); SODIUM 136 MMOL/L (135-145); TOTAL CARBON DIOXIDE 25.4 MMOL/L (24-32); TOTAL PROTEIN 7.2 G/DL (6.4-8.2); eGFR 79 ML/MIN
[2020-06-08 05:37] VITALS: BP 133/83
[2020-06-09] MEDS ORDERED: ALBU1.256 NEB (13:03)
[2020-06-09] MEDS ORDERED: ALBU2.5V12 NEB (13:04)
[2020-06-09] MEDS ORDERED: ASPI-611 PO (13:40)
[2020-06-09] MEDS ORDERED: BUSP-28 PO (13:45)
== END 2020-06-08 05:41 | disposition home or self-care (01) ==
LOC: ER 23:02
DX: R07.89 Other chest pain (principal); R11.2 Nausea with vomiting, unspecified; R53.1 Weakness; E11.42 Type 2 diabetes mellitus with diabetic polyneuropathy; I48.91 Unspecified atrial fibrillation; I25.10 Atherosclerotic heart disease of native coronary artery without angina pectoris; E78.00 Pure hypercholesterolemia, unspecified; I10 Essential (primary) hypertension; I25.2 Old myocardial infarction; J44.9 Chronic obstructive pulmonary disease, unspecified; M19.90 Unspecified osteoarthritis, unspecified site; G89.29 Other chronic pain; F41.9 Anxiety disorder, unspecified; F31.9 Bipolar disorder, unspecified; Z87.01 Personal history of pneumonia (recurrent); Z86.14 Personal history of Methicillin resistant Staphylococcus aureus infection; Z90.49 Acquired absence of other specified parts of digestive tract; Z98.890 Other specified postprocedural states; Z60.2 Problems related to living alone; Z88.5 Allergy status to narcotic agent; Z88.0 Allergy status to penicillin; Z88.8 Allergy status to other drugs, medicaments and biological substances; Z79.4 Long term (current) use of insulin; Z79.899 Other long term (current) drug therapy
CPT/HCPCS: 36415; 71045; 80053; 83880; 84484; 85025; 93005; 99285

== ENCOUNTER 2020-06-08 13:16 | Emergency (ER) | payer OTHER, MEDICARE ==
[~2020-06-08] VITALS: Ht 177.8 cm; Wt 90.9 kg
[2020-06-08] MEDS ORDERED: naproxen 500mg tablet PO ONE (16:05)
[2020-06-08] MEDS ORDERED: acetaminophen 325mg tablet PO ONE (16:05)
[2020-06-08 16:14] LABS: CLARITY,URINE SLIGHTLY CLOUDY (Clear); COLOR,URINE YELLOW (Yellow); GLUCOSE, URINE NEGATIVE (Neg); KETONES,URINE NEGATIVE (Neg); LEUKOCYTE ESTERASE ,URINE NEGATIVE (Neg); NITRITES, URINE NEGATIVE (Neg); OCCULT BLOOD,URINE NEGATIVE (Neg); PH,URINE 5.5 (4.8-8.0); PROTEIN,URINE NEGATIVE (Neg); UROBILINOGEN,URINE 0.2 E.U/dL (0.2-1.0)
[2020-06-08 16:15] LABS: UA COLLECTION TYPE URINAL
[2020-06-08 16:23] LABS: MUCUS STRANDS MODERATE /LPF (Neg); SQUAMOUS EPITHELIAL CELL,UR FEW /LPF (FEW)
[2020-06-08 16:25] LABS: BACTERIA,URINE NONE SEEN /HPF (Neg); RBC,URINE 0-2 /HPF (0-2); URINE AMPHETAMINE SCREEN NEGATIVE (Neg); URINE BARBITUATE SCREEN NEGATIVE (Neg); URINE BENZODIAZEPINES SCREEN NEGATIVE (Neg); URINE CANNABINOID SCREEN NEGATIVE (Neg); URINE COCAINE SCREEN NEGATIVE (Neg); URINE METHADONE SCREEN NEGATIVE (Neg); URINE OPIATE SCREEN NEGATIVE (Neg); URINE PHENCYCLIDINE SCREEN NEGATIVE (Neg)
[2020-06-08 16:26] LABS: WBC,URINE 0-4 /HPF (0-4)
[2020-06-08 16:51] LABS: BASOPHILS # (AUTO) 0.1 X10'3 (0-0.2); BASOPHILS % (AUTO) 1.2 % (0-1); EOSINOPHILS # (AUTO) 0.1 X10'3 (0-0.9); EOSINOPHILS % (AUTO) 1.5 % (0-6); HEMATOCRIT 37.1 % (42.0-52.0); HEMOGLOBIN 12.3 g/dl (14.0-17.9); LYMPHOCYTES # (AUTO) 1.3 X10'3 (1.1-4.8); LYMPHOCYTES % (AUTO) 14.3 % (21-51); MEAN CORPUSCULAR HEMOGLOBIN 30.1 PG (27.0-31.0); MEAN CORPUSCULAR HGB CONC 33.1 g/dL (33.0-36.5); MEAN PLATELET VOLUME 7.2 FL (7.4-10.4); MONOCYTES # (AUTO) 1.1 X10'3 (0-0.9); MONOCYTES % (AUTO) 11.7 % (2-12); NEUTROPHILS # (AUTO) 6.5 X10'3 (1.8-7.7); NEUTROPHILS % (AUTO) 71.3 % (42-75); PLATELET COUNT 400 X10'3 (140-440); RED BLOOD COUNT 4.08 X10'6 (4.70-6.10); RED CELL DISTRIBUTION WIDTH 16.5 % (11.5-14.5); WHITE BLOOD COUNT 9.2 X10'3 (4.5-11.0)
--- NOTE | 2020-06-08 17:05 | NUR ---
Patient transferred from fast track to bed 26. Patient requesting snacks. Patient states that he is suicidal without a plan.
[2020-06-08 17:07] LABS: ALANINE AMINOTRANSFERASE 17 U/L (12-78); ALBUMIN 3.1 G/DL (3.4-5.0); ALBUMIN/GLOBULIN RATIO 0.7 (1.1-1.5); ALKALINE PHOSPHATASE 78 IU/L (46-116); ANION GAP 9 (8-16); ASPARTATE AMINO TRANSFERASE 14 U/L (10-37); BILIRUBIN,TOTAL 0.8 MG/DL (0.1-1.0); BLOOD UREA NITROGEN 11 MG/DL (7-18); BUN/CREATININE RATIO 16.4 (5.4-32.0); CALCIUM 8.7 MG/DL (8.5-10.1); CHLORIDE 102 MMOL/L (99-107); CREATININE 0.67 MG/DL (0.60-1.10); ETHANOL < 0.010 GM/DL (0.0-0.010); GLUCOSE 155 MG/DL (70-104); POTASSIUM 3.8 MMOL/L (3.5-5.1); SODIUM 139 MMOL/L (135-145); TOTAL CARBON DIOXIDE 28.5 MMOL/L (24-32); TOTAL PROTEIN 7.3 G/DL (6.4-8.2); eGFR > 90 ML/MIN
--- NOTE | 2020-06-08 17:43 | NUR ---
FAXED PACKET [facility]
--- NOTE | 2020-06-08 19:16 | NUR ---
1899- Tech informed me patient was c/o CP. This RN assessed pt- pt states 12/07 left CP radiating to BLE, reports SOB and nausea. ED MD Bolanos notified orders recieved for EKG. 1914- Tech at bedside EKG performed. Pt does not appear to be in any distress at this time. Will continue to monitor. Addendum: 06/08/20 at 7 by CHITRA 1914: Pt states multiple times during assessment and ekg "I'm sorry I have a bad heart"
--- NOTE | 2020-06-08 22:28 | NUR ---
Pt moaning in bed, c/o leg pain and difficulty sleeping. Dr. Bolanos notified, orders received.
[2020-06-08] MEDS ORDERED: olanzapine 10mg tablet PO SCH (22:30)
[2020-06-08] MEDS ORDERED: olanzapine 10mg tablet PO ONE (22:30)
--- NOTE | 2020-06-09 00:42 | NUR ---
Pt. resting quietly in bed, respirations even and unlabored, no apparent signs of distress.
--- NOTE | 2020-06-09 06:31 | NUR ---
RCVD REPORT FROM JM CLEMONS, PT IS SUPINE IN BED, EYES CLOSED, ASLEEP, NO NEEDS AT THIS TIME
[2020-06-09] MEDS ORDERED: albuterol 2.5 MG/3 ML nebule NEB PRN ×3 (08:00→16:10)
--- NOTE | 2020-06-09 08:37 | NUR ---
PT JUST HAD BREATHING TREATMENT AND ATE HIS BREAKFAST, REQUESTING BLANKETS TO BE PULLED UP TO HIS CHIN, HE IS REMINDED THAT HE IS ABLE TO DO THIS ON HIS OWN BY STAFF
--- NOTE | 2020-06-09 10:32 | NUR ---
spoke to Dr Urbina, [facility], needs a new Covid result to be sent, Along with CBC, CMET, wanting to know if he meets criteria per [facility], needs a PT eval, and neuro eval if he doesn't meet 5150 criteria
--- NOTE | 2020-06-09 10:53 | NUR ---
pt was accepting of nasal Covid swabs, went back to sleep, no needs at this time
--- NOTE | 2020-06-09 11:25 | NUR ---
KIMBERLY FROM [facility] IN [place], [place]. SPOKE WITH [facility]: POTENTIAL ADMISSION TO THEIR FACILITY. BROCK STATES SHE NEEDS A RECENT EKG, SALICYLATE AND ACETAMINOPHEN LEVELS, AND COVID TEST RESULTS. INFO TO BE FAXED TO [phone]. CONTACT NUMBER IS [phone].
--- NOTE | 2020-06-09 11:30 | NUR ---
pt is supine in bed, asleep, no needs at this time
--- NOTE | 2020-06-09 12:12 | NUR ---
called the pharmacy re: pts medications, [facility]
[2020-06-09 12:36] LABS: ACETAMINOPHEN < 2.0 UG/ML (10-30)
--- NOTE | 2020-06-09 12:45 | NUR ---
pt is eating lunch, no needs at this time
[2020-06-09] MEDS ORDERED: ALBU1.256 NEB (13:03)
[2020-06-09] MEDS ORDERED: ALBU2.5V12 NEB (13:04)
--- NOTE | 2020-06-09 13:28 | NUR ---
faxed requested labs to dr Urbina at [place] [phone] and to Ai at [facility] [phone]
[2020-06-09] MEDS ORDERED: ASPI-611 PO (13:40)
[2020-06-09] MEDS ORDERED: BUSP-28 PO (13:45)
--- NOTE | 2020-06-09 14:49 | NUR ---
pt is supine in bed, regular breathing present, no needs at this time
[2020-06-09] MEDS ORDERED: ibuprofen tablet 400 MG TABLET PO ONE (15:40)
[2020-06-09] MEDS ORDERED: nitroGLYCERIN 0.4mg SUBLingual tab SL PRN (15:40)
[2020-06-09] MEDS ORDERED: NYSTATIN CREAM - 30GM TUBE TP PRN (15:40)
[2020-06-09] MEDS ORDERED: ALBUTEROL INHALER 1 PUFF/90 MCG INHALER IH PRN (15:40)
[2020-06-09] MEDS: gabapentin 300mg capsule PO SCH (15:48)
--- NOTE | 2020-06-09 16:00 | NUR ---
pt requested motrin, obtained order, also gave pts gabapentin, accepting of care, no other needs at this time
--- NOTE | 2020-06-09 16:00 | NUR ---
LETHA GOLDMAN (FRUIT LOADER OF THE HOUSE THAT PT RESIDES AT) CALLED TO SPEAK WITH PT, AND NOTIFY HIM THAT HIS RENT IS DUE. HER PHONE NUMBER IS [phone].
--- NOTE | 2020-06-09 16:56 | NUR ---
pt supine in bed, calm, given warm blanket
--- NOTE | 2020-06-09 17:47 | NUR ---
pt supine in bed, awake, no needs this time
[2020-06-09] MEDS ORDERED: albuterol 2.5 MG/3 ML nebule NEB SCH (20:00)
[2020-06-09] MEDS ORDERED: ipratropium 0.5 MG/2.5ML nebule IH SCH (20:00)
--- NOTE | 2020-06-09 20:19 | NUR ---
ANIMAL CARE SUPERVISOR PATTY ASKED ME TO ASSIST PRIMARY RN KALLIE. PATIENT C/O OF PAIN TO RIGHT HIP: BRUISING ALONG POSTERIOR RIGHT THIGH AND BRUISING TO RIGHT BUTTOCK. PATIENT DENIES SUICIDAL AND HOMICIDAL IDEATION AT THIS TIME.PATIENT STATES THAT HE HAD A RECENT STROKE AND THAT COINCIDES WITH HIS SLIGHTLY SLURRED SPEECH AND RIGHT SIDED WEAKNESS
[2020-06-09] MEDS: budesonide 0.5mg/2ml UD nebule IH SCH (20:59)
[2020-06-09] MEDS: insulin glargine (Lantus) pen - multi-dose SQ SCH (21:00)
[2020-06-09] MEDS: ipratropium/albuterol 3ml nebule NEB SCH (21:02)
--- NOTE | 2020-06-09 21:12 | NUR ---
RESDPIRATORY IN ROOM FOR TREATMENT
--- NOTE | 2020-06-09 21:13 | NUR ---
REPORT GIVEN TO VIR[place]IA ONEAL WHO ASSUMED CARE OF PATIENT
[2020-06-09] MEDS: busPIRone 5mg tablet PO SCH (21:31)
[2020-06-09] MEDS: prazosin 1mg capsule PO SCH (21:31)
[2020-06-09] MEDS: acetaminophen 325mg tablet PO PRN (21:31)
[2020-06-09] MEDS: metFORMIN 500mg tablet PO SCH (21:32)
--- NOTE | 2020-06-09 21:33 | NUR ---
BGL assessed to be at 184.
[2020-06-09] MEDS: pantoprazole 40mg Tablet.DR PO SCH (21:36)
[2020-06-10] MEDS: ipratropium/albuterol 3ml nebule NEB SCH ×4 (03:00→20:30)
--- NOTE | 2020-06-10 07:43 | NUR ---
PT UP TO BR WITH WALKER WITH STEADY GAIT
[2020-06-10] MEDS: budesonide 0.5mg/2ml UD nebule IH SCH ×2 (08:21→20:30)
--- NOTE | 2020-06-10 10:14 | NUR ---
SPOKE WITH BROCK AT [facility], THEY ARE REFUSING PT DUE TO THE FACT THAT HE USES A WALKER AND IS A FALL RISK
--- NOTE | 2020-06-10 10:25 | NUR ---
DR CONLEY AT [facility] IS THE PHYSICIAN REFUSING PT
[2020-06-10] MEDS: vitamin D (cholecalciferol) 1,000 unit tablet PO SCH (11:27)
[2020-06-10] MEDS: metoprolol succinate 25mg (24-HOUR) SR. Tablet PO SCH (11:27)
[2020-06-10] MEDS: aspirin 81mg tablet.DR PO SCH (11:28)
[2020-06-10] MEDS: atorvastatin 20mg tablet PO SCH (11:28)
[2020-06-10] MEDS: lisinopril 10 MG tablet PO SCH (11:29)
[2020-06-10] MEDS: metFORMIN 500mg tablet PO SCH ×2 (11:29→20:10)
[2020-06-10] MEDS: clopidogrel 75mg tablet PO SCH (11:29)
[2020-06-10] MEDS: pantoprazole 40mg Tablet.DR PO SCH ×2 (11:30→20:10)
[2020-06-10] MEDS: gabapentin 300mg capsule PO SCH ×4 (11:30→23:01)
[2020-06-10] MEDS: busPIRone 5mg tablet PO SCH ×3 (11:30→20:10)
[2020-06-10] MEDS: sertraline 25mg tablet PO SCH (11:30)
--- NOTE | 2020-06-10 11:46 | NUR ---
PT in for eval. pt able to ambulate with walker. kriss well
--- NOTE | 2020-06-10 12:48 | NUR ---
PT MOVED FROM 12 IN MAIN ED BACK TO ROOM 26 IN OVERFLOW, BY STAFF WITH NO DIFFICULTY
[2020-06-10] MEDS: amiodarone 100mg tablet PO SCH (13:05)
--- NOTE | 2020-06-10 13:35 | NUR ---
PT SUPINE IN BED, EYES CLOSED REGULAR BREATHING PRESENT, WILL CONTINUE TO MONITOR
--- NOTE | 2020-06-10 14:46 | NUR ---
PT IS ASLEEP
--- NOTE | 2020-06-10 15:45 | NUR ---
pt is sleeping, no needs at this time
--- NOTE | 2020-06-10 16:18 | NUR ---
I have reviewed and agree with all medications administered and interventions performed by [facility] Student, Debby Thomas.
--- NOTE | 2020-06-10 16:35 | NUR ---
pt states he is having loose stools, provider Luis Miguel, aware, did not prescribe meds
--- NOTE | 2020-06-10 19:31 | NUR ---
The patient has been resting on his bed. He stated that he feels "bummed" He denied having suicidal thoughts currently and then added, "they're supposed to give some kind of rehab for my stroke. I went to [place]"
[2020-06-10] MEDS ORDERED: ibuprofen tablet 400 MG TABLET PO ONE (20:00)
[2020-06-10] MEDS: insulin glargine (Lantus) pen - multi-dose SQ SCH (20:04)
[2020-06-10] MEDS: prazosin 1mg capsule PO SCH (20:10)
--- NOTE | 2020-06-10 22:50 | NUR ---
The patient has been resting on his bed with no s/s of distress noted.
--- NOTE | 2020-06-10 23:53 | NUR ---
The patient appears to be sleeping.
[2020-06-11] MEDS: ipratropium/albuterol 3ml nebule NEB SCH ×4 (02:25→20:29)
--- NOTE | 2020-06-11 02:28 | NUR ---
Respiratory is here here to give the patient a breathing treatment.
--- NOTE | 2020-06-11 04:56 | NUR ---
The patient appears to have slept well during the night.
--- NOTE | 2020-06-11 07:07 | NUR ---
PT RESTING WITH EYES CLOSED RR EQUAL AND UNLABORED
--- NOTE | 2020-06-11 07:50 | NUR ---
PT UP TO BR WITH STEADY GAIT AND USING WALKER.
--- NOTE | 2020-06-11 08:00 | NUR ---
PT SITTING ON SIDE OF BED EATING BREAKFAST
[2020-06-11] MEDS: gabapentin 300mg capsule PO SCH ×2 (08:33→16:23)
[2020-06-11] MEDS: vitamin D (cholecalciferol) 1,000 unit tablet PO SCH (08:33)
[2020-06-11] MEDS: amiodarone 100mg tablet PO SCH (08:33)
[2020-06-11] MEDS: metFORMIN 500mg tablet PO SCH ×2 (08:33→20:34)
[2020-06-11] MEDS: pantoprazole 40mg Tablet.DR PO SCH ×2 (08:34→20:35)
[2020-06-11] MEDS: lisinopril 10 MG tablet PO SCH (08:34)
[2020-06-11] MEDS: clopidogrel 75mg tablet PO SCH (08:35)
[2020-06-11] MEDS: busPIRone 5mg tablet PO SCH ×3 (08:35→20:35)
[2020-06-11] MEDS: sertraline 25mg tablet PO SCH (08:35)
[2020-06-11] MEDS: metoprolol succinate 25mg (24-HOUR) SR. Tablet PO SCH (08:35)
[2020-06-11] MEDS: atorvastatin 20mg tablet PO SCH (08:35)
[2020-06-11] MEDS: aspirin 81mg tablet.DR PO SCH (08:36)
[2020-06-11] MEDS: budesonide 0.5mg/2ml UD nebule IH SCH ×2 (08:50→20:29)
--- NOTE | 2020-06-11 09:41 | NUR ---
PT RESTING ON RIGHT SIDE WITH EYES CLOSED RR EQUAL AND UNLABORED
--- NOTE | 2020-06-11 11:19 | NUR ---
PT CONTINUES RESTING IN BED WITH EYES CLOSED RR EQUAL AND UNLABORED
--- NOTE | 2020-06-11 11:52 | NUR ---
PT RESTING ON BACK WITH EYES CLOSED RR EQUAL AND UNLABORED
[2020-06-11] MEDS: acetaminophen 325mg tablet PO PRN ×2 (12:32→20:34)
--- NOTE | 2020-06-11 12:43 | NUR ---
PT REQUEST TYLENOL FOR GENERLIZED PAIN. PT HAD MED LIQUID BM. PT PROVIDED WIPES, TOWELS, CLEAN SCRUBES, AND A BRIEF PER HIS REQUEST AND CLEANED HIMSELF UP. PTS BED CHANGED.
--- NOTE | 2020-06-11 14:39 | NUR ---
RT AT BS FOR NEB TX
--- NOTE | 2020-06-11 15:02 | NUR ---
PT C/O MULTIPLE LOOSE STOOLS OVER THE PAST [address] TIM NOTIFIED ORDER FOR C-DIFF GIVEN. WILL REASSESS AFTER RESULTS
--- NOTE | 2020-06-11 15:22 | NUR ---
I have reviewed and agree with all medications administered and interventions performed by [facility] Student, Debby Thomas.
--- NOTE | 2020-06-11 16:40 | NUR ---
PT RESTING ON BACK WITH EYES CLOSED RR EQUAL AND UNLABORED
--- NOTE | 2020-06-11 17:05 | NUR ---
CALL PLACED TO LAB INQUIRING ETA FOR C-DIFF. INFORMED THAT BECAUSE THE SAMPLE ARRIVED AT 1500 IT WILL BE RAN IN THE AM. INFORMED [place] [employer] CONTACTED BY KARAN FUNG WILL ATTEMPT TO RUN SAMPLE TONIGHT IF THEY ARE NOT ABLE THEY WILL CALL US BACK. PT WILL REMAIN IN BED 26 OF OVERFLOW WITH A BATHROOM DESIGNATED FOR HIM AND BEDS 24 AND 25 WILL BE BLOCKED UNTIL IT IS KNOW IF LAB CAN RUN THE SAMPLE TONIGHT. IF LAB IS NOT ABLE OR PT SAMPLE COMES BACK POSITIVE PT WILL BE MOVED BACK TO MAIN ER INTO AN ISOLATION ROOM.
[2020-06-11 17:40] VITALS: BP 140/84
[2020-06-11 17:49] LABS: C DIFF SPECIMEN=DIARRHEA? ACCEPTABLE; C DIFFICILE TOXINS A&B NEGATIVE (Neg)
[2020-06-11 17:50] LABS: C DIFF ANTIGEN NEGATIVE (NEGATIVE)
--- NOTE | 2020-06-11 17:51 | NUR ---
KILO FROM LAB CALLED WITH NEG C-DIFF RESULTS
--- NOTE | 2020-06-11 18:20 | NUR ---
PT SITTING ON SIDE OF BED EATING DINNER
--- NOTE | 2020-06-11 19:00 | NUR ---
Pt was reevaluated by [facility] and the [address] Mckinnon informed to discharge.
--- NOTE | 2020-06-11 20:00 | NUR ---
Check blood glucose = 192.
--- NOTE | 2020-06-11 20:30 | NUR ---
Informed charge that dc orders haven't been written, confirmed that Dr. Mckinnon will look at the chart notes before discharge.
[2020-06-11] MEDS: prazosin 1mg capsule PO SCH (20:34)
[2020-06-11] MEDS: insulin glargine (Lantus) pen - multi-dose SQ SCH (20:40)
--- NOTE | 2020-06-11 20:50 | NUR ---
Cholo logan in [facility] - 06/11/20 at 2050 by SYDNI PT RESTONG C
--- NOTE | 2020-06-11 20:50 | NUR ---
PT RESTING COMFORTABLY FOLLOWING BREATHING TREATMENT BY RT, GIVEN SUGAR FREE JELLO SNACK.
--- NOTE | 2020-06-11 22:15 | NUR ---
Dr. Mckinnon left for the night, received discharge orders for another provider.
--- NOTE | 2020-06-11 22:45 | NUR ---
[facility] refused to milk pickup driver this particular pt. [employer] is not taking any routes at this time. Informed charge nurse and called nursing morgane who suggested to call [employer] for a ride to the [place]. Pt is dressed in his personal clothing and ready to go.
--- NOTE | 2020-06-11 23:50 | NUR ---
[employer] answered and will be here in 30 mins to picking belt operator pt.
== END 2020-06-12 00:14 | disposition home or self-care (01) ==
LOC: ER 13:16
DX: S70.01XA Contusion of right hip, initial encounter (principal); R45.851 Suicidal ideations; Z20.822 Contact with and (suspected) exposure to COVID-19; M25.551 Pain in right hip; M54.5 Low back pain; R53.1 Weakness; E11.42 Type 2 diabetes mellitus with diabetic polyneuropathy; I48.91 Unspecified atrial fibrillation; I25.10 Atherosclerotic heart disease of native coronary artery without angina pectoris; E78.00 Pure hypercholesterolemia, unspecified; I10 Essential (primary) hypertension; I25.2 Old myocardial infarction; J44.9 Chronic obstructive pulmonary disease, unspecified; M19.90 Unspecified osteoarthritis, unspecified site; G89.29 Other chronic pain; F41.9 Anxiety disorder, unspecified; F31.9 Bipolar disorder, unspecified; Z86.14 Personal history of Methicillin resistant Staphylococcus aureus infection; Z90.49 Acquired absence of other specified parts of digestive tract; Z98.890 Other specified postprocedural states; Z60.2 Problems related to living alone; Z88.5 Allergy status to narcotic agent; Z88.0 Allergy status to penicillin; Z88.8 Allergy status to other drugs, medicaments and biological substances; Z79.4 Long term (current) use of insulin; Z79.899 Other long term (current) drug therapy; X58.XXXA Exposure to other specified factors, initial encounter; Y93.89 Activity, other specified; Y92.89 Other specified places as the place of occurrence of the external cause; Y99.8 Other external cause status
CPT/HCPCS: 36415; 73502; 80053; 80305; 80320; 80329; 81001; 82948; 85025; 87324; 87426; 87449; 93005; 96372; 99285; J1815; J7626